=== PATIENT | female | born 1935 | race Caucasian/White ===

== ENCOUNTER → 2018-03-06 | Outpatient (CLI) | payer MEDICARE, OTHER, SELFPAY ==
[2018-03-06 10:15] LABS: Alanine Aminotransferase 24 IU/L (9-52); Albumin 4.2 g/dL (3.5-5.0); Albumin Globulin Ratio 1.4 (1.0-2.8); Alkaline Phosphatase 62 U/L (38-126); Aspartate Aminotransferase 36 IU/L (14-36); BUN Creatinine Ratio 21.3 (6-22); Bilirubin Total 0.5 mg/dL (0.2-1.3); Calcium 9.6 mg/dL (8.4-10.2); Estimated Glomerular Filt Rate > 60.0 mL/min (>60); Glucose 138 mg/dL (80-110); HEMOLYSIS < 15 (0-50); Potassium 3.8 mmol/L (3.4-5.1); Sodium 145 mmol/L (137-145); Total Protein 7.2 g/dL (6.3-8.2)
[2018-03-06 10:59] LABS: INR 1.1 (0.9-1.3); Prothrombin Time 12.1 SECONDS (10.1-12.7)
== END ==
LOC: LAB 08:41
PROVIDERS: Family Provider Family Medicine; PCP Family Medicine; Visit Provider Family Medicine
DX: J90 Pleural effusion, not elsewhere classified (principal)
CPT/HCPCS: 36415; 80053; 85610

== ENCOUNTER → 2018-03-07 13:34 | Outpatient (CLI) | payer MEDICARE, OTHER, SELFPAY ==
--- NOTE | 2018-03-07 | DI.RAD.S_ITS ---
PROCEDURE: XR CHEST 1V INDICATIONS: 82-year-old female status post ultrasound-guided left thoracentesis. TECHNIQUE: One view of the chest was acquired. COMPARISON: [facility], , CHEST 2 VIEW, 02/22/2018, 10:02. [facility], , CHEST 2 VIEW, 02/08/2018, 10:42. [facility], , CHEST 1 VIEW, 01/24/2018, 15:45. FINDINGS: Surgical changes and devices: None. Lungs and pleura: There is small residual basal left pleural effusion. No pneumothorax. No acute airspace opacities. Mediastinum: Mediastinal contours appear normal. There is moderate cardiomegaly. Bones and chest wall: No suspicious bony lesions. Overlying soft tissues appear unremarkable. IMPRESSION: Small residual basal left pleural effusion after thoracentesis. No pneumothorax. Dictated by: Trae Sapp M.D. on 03/07/2018 at 14:57 Approved by: Trae Sapp M.D. on 03/07/2018 at 14:59
--- NOTE | 2018-03-07 | PATH_ITS ---
Note [facility] Accession Number: [id number] TESTS RESULT FLAG UNITS REF RANGE LAB Clinician Provided Cytology Information No. of containers..01 Other (Miscellaneous) LT PLEURAL EFFUSION DIAGNOSIS: 01 LEFT PLEURAL EFFUSION, ASPIRATION. INCONCLUSIVE. SMALL, MATURE AND MONOTONOUS LYMPHOCYTES ARE PRESENT, SEE COMMENT. COMMENT: EXAMINATION OF THE THIN PREP AND CELL BLOCK REVEALS A MONOTONOUS LYMPHOCYTE POPULATION AND FEW REACTIVE MESOTHELIAL CELLS. ALTHOUGH THE SPECIMEN IS NEGATIVE FOR CARCINOMA AND HIGH-GRADE LYMPHOMA, THE POSSIBILITY OF A LOW-GRADE LYMPHOMA CANNOT BE RULED OUT. THEREFORE, IMMUNOSTAINS HAVE BEEN ORDERED FOR FURTHER EVALUATION AND THESE RESULTS WILL FOLLOW IN AN ADDENDUM REPORT. Pathologist ICD10: 01 J91.8 ADDENDUM COMMENT: To better evaluate the lymphocyte population seen on this pleural effusion, a limited panel of immunostains is performed with the following results: . CD3: T lymphocytes positive; CD20: B lymphocytes positive; CD43: T lymphocytes positive (negative for aberrant coexpression on the B lymphocytes). . These immunostains support a mixed T- and B-lymphocyte population, that favors a reactive process. However, if the effusion recurs, and there is clinical concern for a lymphoproliferative disorder, flow cytometry studies are also recommended. . * This test was developed and its performance characteristics determined by [employer] It has not been cleared or approved by the U.S. Food and Drug Administration. The FDA has determined that such clearance or approval is not necessary. This test is used for clinical purposes. It should not be regarded as investigational or for research. . ADDENDUM (FINAL) DIAGNOSIS: Pleural Effusion, Thoracentesis Addendum (03/12/2018): Negative for malignancy. Mixed B and T lymphocyte population, favor a reactive process. MRV/03/12/2018 Addendum Electronically Signed by Delfino Gardner MD, Pathologist 01 Delfino Gardner MD, Pathologist NPI- [id number] Deuce Slaughter, House Piping Inspector (ASCP) 01 30 CC, ORANGE, CLOUDY /LCS FLAG LEGEND: L-Low Normal,H-High Normal,LL-Alert Low,HH-Alert High <-Panic Low,>-Panic High,A-Abnormal,AA-Critical Abnormal Performed at: 01 =Z [facility] [address], [place] [address] Kostas Ramirez MD, A courtesy copy of this report has been sent to [phone]. A duplicate report has been generated due to demographic updates. Performed at: 01 [facility] [address], [place], [place] [id number] MD Kostas Ramirez MD Phone: [phone]
--- NOTE | 2018-03-07 | DI.US.S_ITS ---
PROCEDURE: US THORACENTESIS INDICATIONS: 82 year-old female with recurrent symptomatic left pleural effusion. TECHNIQUE: The indications, alternatives, benefits, risks, and complications of the procedure were explained to the patient. Written informed consent was obtained and placed in the chart. The chest was examined sonographically, and an appropriate site was chosen for thoracentesis. The skin was prepared and draped in the usual sterile fashion, and 1% lidocaine was infiltrated from the skin down through the pleural surface. A 19-gauge catheter-covered needle was then introduced into the pleural space, the catheter was advanced and the needle was withdrawn, and thereafter pleural fluid was aspirated. The catheter was then removed and a dressing was applied. COMPARISON: [facility], THORACENTESIS, 01/24/2018, 15:41. FINDINGS: Access site: Posterior left hemithorax. Needle: One-Step centesis catheter with introducer needle. Fluid volume and description: 1920 mL of serosanguineous fluid. Fluid sent for diagnostic testing: For cytology only. Medications: 1% lidocaine for local anaesthesia. Complications: None; post-procedural chest radiograph is pending to assess for pneumothorax. IMPRESSION: Successful ultrasound-guided left diagnostic and therapeutic thoracentesis. Dictated by: Trae Sapp M.D. on 03/07/2018 at 15:25 Approved by: Trae Sapp M.D. on 03/07/2018 at 15:26
== END ==
PROVIDERS: Family Provider Family Medicine; PCP Family Medicine; Visit Provider Family Medicine
DX: J90 Pleural effusion, not elsewhere classified (principal)
CPT/HCPCS: 32555; 71045

== ENCOUNTER 2018-04-11 10:29 | Observation (INO) | payer MEDICARE, OTHER, SELFPAY ==
[2018-03-15 14:07] VITALS: BMI 17.6
[2018-04-03 14:03] VITALS: BMI 20.2
[2018-04-11] VITALS (17 sets, daily range): BP systolic 125–171; BP diastolic 57–99; PULSE 86–99; RESP 14–21; TEMP 36.1–36.7; O2SAT 95–99; BMI 18.1
--- NOTE | 2018-04-11 | DI.RAD.S_ITS ---
PROCEDURE: XR CHEST 2V INDICATIONS: XRAY PRIOR TO SURGERY TECHNIQUE: 2 views of the chest were acquired. COMPARISON: [facility], , XR CHEST 1V, 03/10/2018, 13:09. FINDINGS: Surgical changes and devices: None. Lungs and pleura: No pleural effusions or pneumothorax. Small left pleural effusion with adjacent atelectasis, appears improved since 03/10/18. No new focal consolidation identified. Scattered scarring or atelectasis. Mediastinum: Mediastinal contours are normal. Heart size is normal. Bones and chest wall: No suspicious bony abnormalities. Soft tissues appear unremarkable. IMPRESSION: Small left pleural effusion with adjacent atelectasis, improved since 03/10/18. No new or focal consolidation Dictated by: Kaleb Patel M.D. on 04/11/2018 at 12:25 Approved by: Kaleb Patel M.D. on 04/11/2018 at 12:26
--- NOTE | 2018-04-11 | PATH_ITS ---
[facility] Accession Number: [id number] . 01 Material submitted: . PART A: SPLEEN BIOPSY PART B: SPLEEN ORGAN . 01 Clinical history: . A: REMOVED IN FRAGMENTS SLIDES WITH FROZEN . Frozen section diagnosis: . A. FROZEN SECTION DIAGNOSIS: ABNORMAL ARCHITECTURE; INFLAMMATORY-TYPE BACKGROUND. RULE OUT HODGKIN LYMPHOMA, RULE OUT INFLAMMATORY PSEUODO TUMOR. NO EPITHELIAL NEOPLASM IDENTIFIED. . Results given to Dr. Hester after patient identification by Dr. Toney Harris, on 04/14/2018. Frozen section was performed at [facility], [address] [place] [address]. . [facility] . 01 Diagnosis: A, B. Spleen; Biopsy and Splenectomy: Large B-cell lymphoma, germinal centre cell type, with a high Ki67 defined proliferation rate, consistent with diffuse large B-cell lymphoma, see microscopic description. [facility] [place] [facility] [place]18[place] . 01 Comment: This case has also been reviewed by Dr. Flavio Camp, hematopathologist, who agress with the interpretation. . 01 Electronically signed: . Delfino Gardner MD, Pathologist NPI- [id number] . 01 Gross description: . (A) Received in formalin, labeled spleen, is a triangular-shaped, pink-mooney piece of tissue (0.8 x 0.6 x 0.3 cm) originally received unfixed for frozen section performed at [facility]. One-half was sent for frozen section. Section code: (A1) remaining tissue from frozen section; (A2) remaining tissue. Note: Two stained slides are also received. (B) Received in formalin, labeled spleen, is a fragmented spleen (261 grams, 16.5 x 13.5 x 4.5 cm in aggregate). The capsule is warren- purple smooth and shiny. The parenchyma is red-brown and spongy. Multiple pieces of tissue contain warren-white solid firm irregular areas (2.5 x 2.5 x 1.5 cm in aggregate). Loading Unit Operator Crimping tissue submitted in cassettes B1-B10. . Note: Per the requisition, tissue was also received in RPMI and sent to flow cytometry for analysis. ([id number]) /[facility] . 01 Microscopic: . Microscopic examination reveals diffuse proliferation of neoplastic lymphocytes, intermediate and large-sized, with enlarged often pleomorphic, oval and irregular nucleus, occasionally prominent nucleolus, with basophilic cytoplasm, single cell necrosis and associated areas of geographic necrosis. Numerous mitoses and interspersed fibrosis present. There is residual normal, uninvolved splenic parenchyma also present. . To evaluate those neoplastic lymphocytes a panel of immunostains is performed with the following results: The neoplastic lymphocytes show strong uniform expression of the B-cell markers CD20 and PAX5, they are positive for CD10 and BCL6; they show focal/variable expression of BCL2, MUM1 expression (30-40%), P53 expression (30-40%), and with high proliferation rate as defined by Ki67, (80-90%). The neoplastic lymphocytes are negative for cyclin D1 (excluding blastoid variant of mantle cell lymphoma), CD3 and CD5 (these immunostains label background T-lymphocytes) and negative for EBV by LARA-1 in situ hybridization (with an appropriately positive U6 RNA control). . In summary, morphology and immunohistochemistry support the diagnosis of a large B-cell lymphoma with a high proliferation rate (ki-67: 80-90%), and positive for p53 which may indicate more aggressive clinical behavior. CD10 positive/BCL6 positive, subclassifies this large B-cell lymphoma as germinal centre cell type (Myke classification). . In addition, molecular studies have been ordered for MYC/BCL2/BCL6 gene rearrangements (to rule out double/triple hit lymphomas) and these results will follow in an addendum report. Also, c-myc immunostain and IgH and kappa gene rearrangement, by PCR, results will follow in the addendum report. . Concurrent flow cytometry ([id number]) detected an abnormal kappa restricted CD10+ B-cell population (see flow report for details). . Results were called and discussed with Dr. Hester, on 04/17/2018 at 2 pm. . * This test was developed and its performance characteristics determined by [facility]. It has not been cleared or approved by the U.S. Food and Drug Administration. The FDA has determined that such clearance or approval is not necessary. This test is used for clinical purposes. It should not be regarded as investigational or for research. . . . . . . . . . . . . . . . . . . . . . . . . . . . . . 01 Pathologist provided ICD-10: C83.37 . 01 CPT . 98844, J69679, Z80279, Z63988 Performed at: 01 [facility] [address], [place], [place] [id number] MD Kostas Ramirez MD Phone: [phone] Performed at: [address] [facility] [id number] MD Charbel Nicole MD Phone: [phone]
[2018-04-11] MEDS: LACTATED RINGERS 1,000 ML 42 ML IV ×2 (12:24→17:00)
--- NOTE | 2018-04-11 12:42 | PM.PREOP ---
Pre-operative Note Interval Note Pre-op Check: History & Physical Reviewed by Physician and Exam Performed H&P completed within 30 days and has changed as indicated here:: Chest x-ray so is a small effusion on the left. It should not interfere with general anesthesia or the operation. She had no questions preoperatively.
[2018-04-11] MEDS: CEFAZOLIN 2 GM/100 ML FROZ.PIGGY IV (13:24)
--- NOTE | 2018-04-11 14:26 | SUR.OPER ---
ON DEFLATED VALENTINE BAG GEL AXILLARY ROLL GEL PADDING UNDER RIGHT ARM AND RIGHT FLANK PILLOWS BETWEEN ARMS AND LEGS MULTIPLE TAPING CROSS HIPS AND LEGS HEAD ON PILLOW
[2018-04-11] MEDS: BUPIVACAINE 0.5% (PF) 30 ML VIAL INJ (15:30)
--- NOTE | 2018-04-11 18:09 | DI.RAD.S_ITS ---
PROCEDURE: XR CHEST 1V INDICATIONS: R/O PNEUMOTHORAX POST SURGERY TECHNIQUE: One view of the chest was acquired. COMPARISON: [facility], CR, XR CHEST 1V, 03/10/2018, 13:09. [facility], CR, XR CHEST 2V, 04/11/2018, 10:21. FINDINGS: Surgical changes and devices: There is a surgical drain projecting in the left upper quadrant. Lungs and pleura: No visualized pneumothorax. Small left pleural effusion with adjacent atelectasis. Mediastinum: Mediastinal contours appear normal. Heart size is normal. Bones and chest wall: There is extensive diffuse bilateral chest wall soft tissue gas extending to the base of neck. There is also intraperitoneal free air seen under the right hemidiaphragm IMPRESSION: Extensive bilateral chest wall soft tissue gas. No definite visualized pneumothorax. Intraperitoneal free air. This is presumed to be related to recent surgery although recommend clinical correlation. Small left pleural effusion with adjacent atelectasis. Dictated by: Kaleb Patel M.D. on 04/11/2018 at 18:25 Approved by: Kaleb Patel M.D. on 04/11/2018 at 18:30
--- NOTE | 2018-04-11 18:17 | P.OP_ITS ---
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 She was placed in left lateral decubitus position on a beanbag with all her pressure points padded. She was prepped and draped in the usual fashion. Local anesthetic was infiltrated and a transverse incision made at the level of umbilicus on the left side. It was carried through fascia in which stay sutures were placed. Noble cannula was inserted and 3 additional ports were placed 1 superior and 2 inferior to this port. They basically followed the angle of the costal margin. The spleen was identified and adhesions of the colonic omentum at the splenic flexure area were taken down using Harmonic scalpel. When I had freed everything at the inferior pole of the spleen I then divided the short gastrics freeing the upper stomach from the spleen. I then dissected out what appeared to be 2 main arteries and 1 large vein in anticipation should any problem developed with the a biopsy I had planned of the spleen. A biopsy was then performed at the upper pole on frozen section confirms some neoplastic process though it was inserted without process was. After conferring with the pathologist and with the medical oncologist I decided to remove her spleen. The 2 splenic arteries which had been dissected out were divided using stapling device. I then began dissecting along the hilum of the spleen from inferior to superior staying right on the capsule of the spleen to avoid any injury to the pain also divided some of the attachments lateral to the diaphragm. Ultimately we divided all the vessels along the hilum. Any that looks significantly divided with vascular staplers. There was no significant bleeding as this progressed. The only thing holding the spleen now were dense adhesions to the diaphragm. These had to be taken sharply with scissors. Once this was accomplished the spleen was placed in a large bag and brought up to the port site near the umbilicus. The was then morcellated with ring forceps and ultimately the entire spleen was removed. There was no spillage of material in the abdomen. The right upper quadrant was irrigated and suctioned free of fluid. Was some minor oozing from no particular vessel from the diaphragm as we had been forced to expose some of the muscle and dissecting the spleen off of it. Because of this I decided to place a drain in left upper quadrant and brought it out through 1 of the inferior lateral port sites. It was secured with a 3 0 nylon. The ports were all then removed. The stay sutures at the umbilicus were tied after I sutured the posterior fascia together. The wounds were irrigated and a 4 0 Polysorb was used to close the skin in the other 3 port sites. Dressings were applied the patient was taken off the dolan bag placed on her bed and awakened and extubated in the operating room . She was taken recovery room good condition. She was noted to have subcutaneous emphysema and a chest x-ray was performed postop in the upright position. There was no evidence of pneumothorax. This is most likely related to dissection along the diaphragm with air in the abdomen under pressure. This is not a complication but a natural occurrence with this sort of operation. Complications: none Condition: stable Disposition: PACU Plan for aftercare: To observation
[2018-04-11] MEDS: DEXTROSE 5%-0.45% NS 1,000 ML 125 ML IV (18:59)
[2018-04-11] MEDS: GABAPENTIN 300 MG CAPSULE PO (20:15)
[2018-04-11] MEDS: POLYVINYL ALCOHOL DROPS 1 DROPS EYE-BOTH (20:51)
[2018-04-11] MEDS: MORPHINE PCA 30 MG/30 ML PCA.VIAL IV (21:49)
[2018-04-12] VITALS (12 sets, daily range): BP systolic 95–134; BP diastolic 33–59; PULSE 68–86; RESP 14–20; TEMP 35.8–38; O2SAT 93–98; BMI 18.1
[2018-04-12] MEDS: DEXTROSE 5%-0.45% NS 1,000 ML 125 ML IV ×2 (02:48→10:30)
[2018-04-12] MEDS: MORPHINE PCA 30 MG/30 ML PCA.VIAL IV ×2 (05:21→14:53)
[2018-04-12 05:56] LABS: Add Manual Diff / Slide Review NO; Basophils Percent Auto 0.1 % (0-2); Hematocrit 32.7 % (36-46); Lymphocytes Percent Auto 7.8 % (25-40); Mean Corpuscular HGB Conc 33.8 % (30-36); Mean Corpuscular Hemoglobin 32.4 PG (26-34); Monocytes Percent Auto 11.9 % (3-14); Neutrophils Absolute Auto 7500 /uL (3000-5900); Neutrophils Percent Auto 80.2 % (50-75); Platelet Count 171 X10^3/uL (150-400); Red Cell Distribution Width 14.2 % (11.6-14.8); White Blood Cell Count 9.3 X10^3/uL (4.5-11.0)
--- NOTE | 2018-04-12 08:25 | PC.NURSE ---
2 person assist OOB to chair. pt shaky and weak. states, I love to exercise but haven't been able to for medical stuff. SHIRA with serosanguanous drainage. abd slightly distended, BT+
[2018-04-12] MEDS: MULTIVITAMIN 1 TABLET 1 TAB PO (09:01)
[2018-04-12] MEDS: GABAPENTIN 300 MG CAPSULE PO ×2 (09:01→21:37)
[2018-04-12] MEDS: LORATADINE 10 MG TABLET PO (09:01)
[2018-04-12] MEDS: LEVOTHYROXINE 125 MCG TABLET PO (09:01)
[2018-04-12] MEDS: CALCIUM CARB/VIT D3 500/200 TABLET 1 EACH PO (09:01)
[2018-04-12] MEDS: POLYVINYL ALCOHOL DROPS 1 DROPS EYE-BOTH (09:03)
--- NOTE | 2018-04-12 16:26 | PM.PNPO.1 ---
Subjective Date Patient Seen: 04/12/18 Time Patient Seen: 10:26 Interval history: The patient is postop day 1 from a laparoscopic splenectomy. She is feeling pretty weak. Had been out of bed earlier today but did walk in the late morning. She is feeling exhausted and tired and hesitant be discharged. Her pain is well controlled though she has been on parental narcotics. Exam Vital Signs (past 8 hours): Vital Signs - 8 hr 04/12/18 12:00 Pulse Oximetry 98 Pulse Oximetry 98 Oxygen Delivery Method Room Air Narrative Exam Narrative: Op Sites intact. Abdomen is soft. She had a lot of soft tissue air last night when I saw her postop that has completely resolved. The swelling around her face is gone from the soft tissue air. Objective Labs Result Diagrams: 04/12/18 05:20 Labs: Laboratory Results - last 24 hr 04/11/18 04/12/18 18:45 05:20 WBC 9.3 RBC 3.40 L Hgb 11.0 L Hct 32.7 L MCV 96.0 MCH 32.4 MCHC 33.8 RDW 14.2 Plt Count 171 Neut % (Auto) 80.2 H Lymph % (Auto) 7.8 L [place] % (Auto) 11.9 Eos % (Auto) 0.0 L Baso % (Auto) 0.1 Neut # (Auto) 7500 H Nasal Screen MRSA (PCR) Negative for mrsa Assessment & Plan Post-op (1) Splenic neoplasm: Problem details: Based on frozen section intraoperatively yesterday Current Visit: Yes Status: Acute Assessment and plan: The patient doing well post splenectomy. Her matter crit is down which is not that unusual. We will have to watch her platelet count as it will probably rise. I talked to her about post splenectomy antibiotics should she developed a respiratory tract infection. She has had both pneumococcus vaccines already. Will probably discharge in the morning. I will stop her IV fluid and switch her to p.o. pain medication. Repeat CBC just to see what her platelet count is doing. Postoperative Procedures Operation Date: 04/11/18 12:45 Actual Procedures Side Surgeon p Spleen Biopsy; Laparoscopic Splenectomy Mauricio Hester MD Postoperative status: doing well Time Spent With Patient less than 15 minutes Quality VTE Deep Vein Thrombosis/Pulmonary Embolism Present on Admission: No
[2018-04-12] MEDS: OXYCODONE IR 5 MG TABLET PO ×2 (17:28→21:38)
--- NOTE | 2018-04-12 18:22 | PC.NURSE ---
1820 - Patient transferred to room 205. Taken to new room in wheelchair with all belongings. Report given to receiving RN Summer. Patient left room in good condition.
[2018-04-12] MEDS: SODIUM CHLORIDE 0.9% FLUSH 10 ML IV (21:38)
[2018-04-12] MEDS: DOCUSATE 250 MG CAPSULE PO (21:38)
--- NOTE | 2018-04-12 22:26 | PC.NURSE ---
TRANSFER Received pt at approximately 1830 via wheelchair, accompanied by float RN. A&Ox3, pleasant and cooperative with care. 1P min/SBA for ambulation. L abdominal dressing and SHIRA intact. c/o minimal pain, rated 2/10 with activity. telemetry monitoring shows SR. pt orient to room and call light.
[2018-04-13] VITALS (7 sets, daily range): BP systolic 107–131; BP diastolic 47–58; PULSE 79; RESP 16; TEMP 36.8–36.9; O2SAT 92–97
--- NOTE | 2018-04-13 03:35 | PC.NURSE ---
Alert and oriented. Breath sounds CTA with RA sat of 92%. At start of shift had elevated temp of 100.4 but had multiple blankets on and now temp is 98.2. HRR; on telemetry and at 0000 was reported to be in SR. Denies nausea. BT hypoactive and patient denies flatus. Abdomen does appear distended but is soft. Dressings to left abdomen are CDI and SHIRA is compressed/intact with serosanguinous drainage noted in drain. Independent with bed mobility. Reports generalized weakness so uses walker and 1 assist when up to bathroom. SCD's placed at start of shift. Denies pain. Fall risk score is medium; bed alarm is on but patient does call for assistance appropriately.
[2018-04-13 08:34] LABS: Add Manual Diff / Slide Review NO; Basophils Percent Auto 0.2 % (0-2); Eosinophils Percent Auto 1.3 % (2-4); Hematocrit 36.7 % (36-46); Hemoglobin 12.1 g/dL (12.0-16.0); Lymphocytes Percent Auto 7.8 % (25-40); Mean Corpuscular Hemoglobin 31.9 PG (26-34); Mean Corpuscular Volume 96.8 fL (80-100); Monocytes Percent Auto 9.3 % (3-14); Neutrophils Absolute Auto 11100 /uL (3000-5900); Neutrophils Percent Auto 81.4 % (50-75); Platelet Count 218 X10^3/uL (150-400); Red Blood Cell Count 3.79 X10^6/uL (4.0-5.2); Red Cell Distribution Width 14.5 % (11.6-14.8); White Blood Cell Count 13.6 X10^3/uL (4.5-11.0)
[2018-04-13] MEDS: LORATADINE 10 MG TABLET PO (09:18)
[2018-04-13] MEDS: CALCIUM CARB/VIT D3 500/200 TABLET 1 EACH PO (09:18)
[2018-04-13] MEDS: DOCUSATE 250 MG CAPSULE PO (09:18)
[2018-04-13] MEDS: GABAPENTIN 300 MG CAPSULE PO (09:19)
[2018-04-13] MEDS: MULTIVITAMIN 1 TABLET 1 TAB PO (09:19)
[2018-04-13] MEDS: LEVOTHYROXINE 125 MCG TABLET PO (09:19)
[2018-04-13] MEDS: SODIUM CHLORIDE 0.9% FLUSH 10 ML IV (09:19)
[2018-04-13] MEDS: OXYCODONE IR 5 MG TABLET PO (09:25)
--- NOTE | 2018-04-13 12:13 | PC.NURSE ---
Addendum entered by Teresa Petersen R.N. 04/13/18 12:40: 1240-Dr Mims removed drain, Pt tolerated well. Reviewed discharge information with Pt. Dressing supplies sent with Pt. Original Note: Am shift Pt continues to improve, up ambulating with SBA FWW length of acute care halls x2. No dizziness, percolone effective for pain. SHIRA compressed and draining serosang drainage. Plan to d/c after Dr Mims pulls SHIRA. Report given to Beronica/Shauna MORILLO
--- NOTE | 2018-04-13 12:50 | PM.DS.1 ---
History of Present Illness Date Patient Seen: 04/13/18 Time Patient Seen: 12:51 Chief complaint: SPLENIC MASS/BIOPSY [id number] Narrative: 83-year-old female who presented initially with symptomatic pleural effusion on the left side requiring drainage. Cytology was negative. CT scan as part of the evaluation for potential pulmonary pathology demonstrated splenic mass. Findings were most consistent with neoplasm. She was therefore recommended to undergo laparoscopic biopsy of the mass versus splenectomy. 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 2. Hypothyroidism 3. COPD 4. Status post carotid endarterectomy 5. Seasonal allergies 6. Osteopenia 7. Hyperlipidemia 8. History of left pleural effusion 9. Postoperative anemia, not unanticipated following splenectomy Hospital Course: Patient was taken to the operating room on April 11, 2018 for the above procedure. She required splenectomy following initial frozen section analysis. She tolerated this well and was admitted to the intensive care unit initially for monitoring than the regular surgical floor on postoperative day 1. She remained afebrile and hemodynamically stable. No tachycardia or hypertension. She was still feeling somewhat weak and debilitated on postoperative day 1. Thereby requiring additional day in the hospital. By hospital day 2. She was tolerating a regular diet without issues. She reports copious flatus but no bowel movement as yet. Spontaneous return of bladder function. Pain is well controlled with oral analgesia. She is ambulating unassisted other than a walker. Her Blade-Raman drain had minimal serosanguineous output and was therefore removed by postoperative day 2. Her incisions are healing nicely without infection or breakdown. No erythema. Platelet count and hemoglobin were unremarkable at discharge. Her anemia was consistent with splenectomy procedure. Patient has been instructed on wound care. She has also been instructed to call the office sooner should she have nausea, vomiting, progressive pain, fever, chills, wound drainage, or inability to tolerate a diet. She has been given a prescription for prophylactic clarithromycin should she have upper respiratory infection symptoms. She has received Pneumovax in the past that may require further vaccinations once she has recovered from the acute event. She is discharged back to her home environment with the assistance for family members were quite attentive. She will follow up in 1 week in the surgery clinic. Status at Discharge Cognitive/behavioral status at discharge: Baseline Functional status at discharge: independent ambulation Overall status at discharge: patient is progressing back to baseline (Not unanticipated after splenectomy) Time Spent with Patient Less than 30 minutes Exam Vital Signs (past 8 hours): Vital Signs - 8 hr 04/13/18 07:00 04/13/18 08:11 04/13/18 11:00 Temperature 98.5 F Pulse Rate 79 Respiratory Rate 16 Blood Pressure 131/58 H Pulse Oximetry 97 97 97 04/13/18 11:29 04/13/18 12:00 Temperature Pulse Rate Respiratory Rate Blood Pressure Pulse Oximetry 96 97 Pulse Oximetry 97 Oxygen Delivery Method Room Air Oxygen Flow Rate 0 Narrative Exam Narrative: Well-nourished well-developed elderly female in no acute distress. She has been ambulating without issues throughout the day. She has eaten her breakfast tray and lunch tray during my visit this morning and again this afternoon. She is alert oriented x3. She is in good spirits. Sclera nonicteric Chest clear to auscultation Drain output is serosanguineous only in otherwise minimal Dressings are clean, dry, and intact. No abdominal wall erythema. She is mildly distended but soft and minimally tender. No guarding or rebound. Extremities show no clubbing, cyanosis, or edema Objective Labs Result Diagrams: 04/13/18 08:23 Labs: Laboratory Results - last 24 hr 04/13/18 08:23 WBC 13.6 H RBC 3.79 L Hgb 12.1 Hct 36.7 MCV 96.8 MCH 31.9 MCHC 33.0 RDW 14.5 Plt Count 218 Neut % (Auto) 81.4 H Lymph % (Auto) 7.8 L [place] % (Auto) 9.3 Eos % (Auto) 1.3 L Baso % (Auto) 0.2 Neut # (Auto) 54721 H Discharge Plan Discharge Plan Patient Disposition: Home, Self-Care Discharge comment: Your spleen was removed. This may make you susceptible to certain kinds of infections. If you developed a respiratory tract infection symptoms begin taking antibiotics and see your doctor promptly. Do not drive until pain free off medication. Do not lift over 10 lb for 6 weeks Discharge Med Rec/Prescriptions Prescriptions: New clarithromycin 500 mg tablet 500 mg PO BID Qty: 14 RF: 2 oxycodone 5 mg Tablet 5 mg PO Q4HR PRN (Reason: Pain, Moderate) Qty: 30 RF: 0 gabapentin [Neurontin] 300 mg Capsule 300 mg PO BID Qty: 30 RF: 1 acetaminophen 325 mg Tablet 650 mg PO Q6HR PRN (Reason: >100.0) Qty: 40 RF: 1 docusate sodium 250 mg Capsule 250 mg PO BID Qty: 20 RF: 1 sennosides [Senokot] 8.6 mg tablet 8.6 mg PO BEDTIME Qty: 10 RF: 1 Continue levothyroxine [Synthroid] 125 mcg Tablet 125 mcg PO DAILY RF: 0 loratadine [Allerclear] 10 mg Tablet 10 mg PO DAILY RF: 0 multivitamin Capsule 1 tab PO DAILY RF: 0 calcium carbonate-vitamin D3 [Calcium 500 + D (D3)] 500 mg(1,250mg) -125 unit Tablet 1 tab PO DAILY RF: 0 albuterol sulfate [ProAir HFA] 90 mcg/actuation HFA aerosol inhaler 90 mcg Inhalation BID PRN (Reason: Dyspnea) RF: 0 aspirin [Aspirin Low Dose] 81 mg Tablet,Delayed Release (Dr/Ec) 81 mg PO DAILY RF: 0 omega 2-loa-jgz-fish oil [Fish Oil] 1,000 mg (120 mg-180 mg) Capsule 1,200 mg PO QDAY RF: 0 Follow up/Referrals: Mauricio Hester MD [Physician] - 1 Week Discharge Orders: Discharge (Order); Ordered 04/13/18 Ordered By: Raj Mims Provider Discharge Instructions Diet: Diet as Tolerated Activity: Avoid lifting over 10 lb for 4 weeks. You may walk. No pool or tub for at least 2-3 weeks. You may shower. Wound Care Report to your healthcare provider any signs of infection, such as:: chills, fever, night sweats, increased pain and unusual drainage Dressing: You may remove her Band-Aids and shower. Leave strips of tape under Band-Aids alone. Keep a Band-Aid on the site where the drain was exiting until that wound has closed. Visit Report/Discharge Packet Instructions: DI for Splenectomy Stand Alone Forms: Surgery Discharge Discharge Data Primary Care Provider: Isra Delcid Attending Provider: Mauricio Hester VTE Deep Vein Thrombosis/Pulmonary Embolism Present on Admission: No
--- NOTE | 2018-04-13 13:01 | P.DS_ITS ---
History of Present Illness Date Patient Seen: 04/13/18 Time Patient Seen: 12:51 Chief complaint: SPLENIC MASS/BIOPSY [id number] Narrative: 83-year-old female who presented initially with symptomatic pleural effusion on the left side requiring drainage. Cytology was negative. CT scan as part of the evaluation for potential pulmonary pathology demonstrated splenic mass. Findings were most consistent with neoplasm. She was therefore recommended to undergo laparoscopic biopsy of the mass versus splenectomy. 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 2. Hypothyroidism 3. COPD 4. Status post carotid endarterectomy 5. Seasonal allergies 6. Osteopenia 7. Hyperlipidemia 8. History of left pleural effusion 9. Postoperative anemia, not unanticipated following splenectomy Hospital Course: Patient was taken to the operating room on April 11, 2018 for the above procedure. She required splenectomy following initial frozen section analysis. She tolerated this well and was admitted to the intensive care unit initially for monitoring than the regular surgical floor on postoperative day 1. She remained afebrile and hemodynamically stable. No tachycardia or hypertension. She was still feeling somewhat weak and debilitated on postoperative day 1. Thereby requiring additional day in the hospital. By hospital day 2. She was tolerating a regular diet without issues. She reports copious flatus but no bowel movement as yet. Spontaneous return of bladder function. Pain is well controlled with oral analgesia. She is ambulating unassisted other than a walker. Her Blade-Raman drain had minimal serosanguineous output and was therefore removed by postoperative day 2. Her incisions are healing nicely without infection or breakdown. No erythema. Platelet count and hemoglobin were unremarkable at discharge. Her anemia was consistent with splenectomy procedure. Patient has been instructed on wound care. She has also been instructed to call the office sooner should she have nausea, vomiting, progressive pain, fever, chills, wound drainage, or inability to tolerate a diet. She has been given a prescription for prophylactic clarithromycin should she have upper respiratory infection symptoms. She has received Pneumovax in the past that may require further vaccinations once she has recovered from the acute event. She is discharged back to her home environment with the assistance for family members were quite attentive. She will follow up in 1 week in the surgery clinic. Status at Discharge Cognitive/behavioral status at discharge: Baseline Functional status at discharge: independent ambulation Overall status at discharge: patient is progressing back to baseline (Not unanticipated after splenectomy) Time Spent with Patient Less than 30 minutes Exam Vital Signs (past 8 hours): Vital Signs - 8 hr 3 04/13/18 07:00 04/13/18 08:11 04/13/18 11:00 Temperature 98.5 F Pulse Rate 79 Respiratory Rate 16 Blood Pressure 131/58 H Pulse Oximetry 97 97 97 3 04/13/18 11:29 04/13/18 12:00 Temperature Pulse Rate Respiratory Rate Blood Pressure Pulse Oximetry 96 97 Pulse Oximetry 97 Oxygen Delivery Method Room Air Oxygen Flow Rate 0 Narrative Exam Narrative: Well-nourished well-developed elderly female in no acute distress. She has been ambulating without issues throughout the day. She has eaten her breakfast tray and lunch tray during my visit this morning and again this afternoon. She is alert oriented x3. She is in good spirits. Sclera nonicteric Chest clear to auscultation Drain output is serosanguineous only in otherwise minimal Dressings are clean, dry, and intact. No abdominal wall erythema. She is mildly distended but soft and minimally tender. No guarding or rebound. Extremities show no clubbing, cyanosis, or edema Objective Labs Result Diagrams: 04/13/18 08:23 Labs: Laboratory Results - last 24 hr 04/13/18 08:23 WBC 13.6 H RBC 3.79 L Hgb 12.1 Hct 36.7 MCV 96.8 MCH 31.9 MCHC 33.0 RDW 14.5 Plt Count 218 Neut % (Auto) 81.4 H Lymph % (Auto) 7.8 L [place] % (Auto) 9.3 Eos % (Auto) 1.3 L Baso % (Auto) 0.2 Neut # (Auto) 88585 H Discharge Plan Discharge Plan Patient Disposition: Home, Self-Care Discharge comment: Your spleen was removed. This may make you susceptible to certain kinds of infections. If you developed a respiratory tract infection symptoms begin taking antibiotics and see your doctor promptly. Do not drive until pain free off medication. Do not lift over 10 lb for 6 weeks Discharge Med Rec/Prescriptions Prescriptions: New clarithromycin 500 mg tablet 500 mg PO BID Qty: 14 RF: 2 oxycodone 5 mg Tablet 5 mg PO Q4HR PRN (Reason: Pain, Moderate) Qty: 30 RF: 0 gabapentin [Neurontin] 300 mg Capsule 300 mg PO BID Qty: 30 RF: 1 acetaminophen 325 mg Tablet 650 mg PO Q6HR PRN (Reason: >100.0) Qty: 40 RF: 1 docusate sodium 250 mg Capsule 250 mg PO BID Qty: 20 RF: 1 sennosides [Senokot] 8.6 mg tablet 8.6 mg PO BEDTIME Qty: 10 RF: 1 Continue levothyroxine [Synthroid] 125 mcg Tablet 125 mcg PO DAILY RF: 0 loratadine [Allerclear] 10 mg Tablet 10 mg PO DAILY RF: 0 multivitamin Capsule 1 tab PO DAILY RF: 0 calcium carbonate-vitamin D3 [Calcium 500 + D (D3)] 500 mg(1,250mg) -125 unit Tablet 1 tab PO DAILY RF: 0 albuterol sulfate [ProAir HFA] 90 mcg/actuation HFA aerosol inhaler 90 mcg Inhalation BID PRN (Reason: Dyspnea) RF: 0 aspirin [Aspirin Low Dose] 81 mg Tablet,Delayed Release (Dr/Ec) 81 mg PO DAILY RF: 0 omega 3-syv-fpf-fish oil [Fish Oil] 1,000 mg (120 mg-180 mg) Capsule 1,200 mg PO QDAY RF: 0 Follow up/Referrals: Mauricio Hester MD [Physician] - 1 Week Discharge Orders: Discharge (Order); Ordered 04/13/18 Ordered By: Raj Mims Provider Discharge Instructions Diet: Diet as Tolerated Activity: Avoid lifting over 10 lb for 4 weeks. You may walk. No pool or tub for at least 2-3 weeks. You may shower. Wound Care Report to your healthcare provider any signs of infection, such as:: chills, fever, night sweats, increased pain and unusual drainage Dressing: You may remove her Band-Aids and shower. Leave strips of tape under Band-Aids alone. Keep a Band-Aid on the site where the drain was exiting until that wound has closed. Visit Report/Discharge Packet Instructions: DI for Splenectomy Stand Alone Forms: Surgery Discharge Discharge Data Primary Care Provider: Isra Delcid Attending Provider: Mauricio Hester VTE Deep Vein Thrombosis/Pulmonary Embolism Present on Admission: No
--- NOTE | 2018-04-13 15:23 | CM.DANOTE ---
DC NOte: Pt going home w/family to assist today. No barriers identified to safe DC home. Pt walking the halls w/walker today. NOAH
== END 2018-04-13 14:10 | disposition home or self-care (01) ==
LOC: OR 10:31 → ICU 04-12 10:47 → AC 04-12 18:32 → ICU 04-14 12:24 → AC 04-14 12:25
PROVIDERS: Surgery; Admitting Provider Specialist; Family Provider Family Medicine; PCP Family Medicine; Visit Provider Specialist
PROC: 07TP4ZZ Resection of Spleen, Percutaneous Endoscopic Approach (ICD-10-PCS; CPT 38120; principal; 2018-04-11 12:45)
DX: C83.37 Diffuse large B-cell lymphoma, spleen (principal); E03.9 Hypothyroidism, unspecified; J44.9 Chronic obstructive pulmonary disease, unspecified; E78.5 Hyperlipidemia, unspecified; M85.80 Other specified disorders of bone density and structure, unspecified site; D64.9 Anemia, unspecified
CPT/HCPCS: 38120; 36415; 71045; 71046; 85025; 87797; G0378; G0379; J0690; J1100; J2250; J2405; J2704; J3010

== ENCOUNTER → 2018-05-08 13:29 | Outpatient (CLI) | payer MEDICARE, OTHER, SELFPAY ==
[2018-04-11 18:45] VITALS: BMI 18.1
--- NOTE | 2018-05-08 | DI.ECHO.S_ITS ---
[facility]---------+ [facility] +---------+ : : [address] : : : : [id number] : : : : Phone: [phone]+ Echocardiogram Report + + :Name: TITA MALHOTRA Study Date: 05/08/2018 Height: 66 in : :[facility] Weight: 123 lb : : Gender: Female BSA: 1.6 m2 : :: 1935 Age: 83 yrs BP: 168/78 mmHg: :Reason For Study: Chemotherapy : :Ordering Physician: Aashish : :Shana Performed By: Molly Fung : + + Interpretation Summary 1. Normal left ventricular size, wall thickness and systolic function with an estimated EF of 60-65% 2. Normal right ventricular size and systolic function. The estimated RVSP is 36 mm Hg. The estimated right atrial pressure is low. 3. No evidence for valvular pathology. There is no old study available for review. Procedure: A two-dimensional transthoracic echocardiogram with color flow and Doppler was performed. The study quality was technically good. There is no prior echocardiogram noted for this patient. The patient was in normal sinus rhythm during the exam. Left Ventricle: The left ventricle is normal in size. There is normal left ventricular wall thickness. The ejection fraction is estimated to be 60-65%. No obvious focal wall motion abnormalities appreciated. Assessment of diastolic parameters indicates a relaxation abnormality of the left ventricle, consistent with normal filling pressures. Right Ventricle: The right ventricle is normal size. The right ventricular systolic function is normal. Atria: The left atrial size is normal. Right atrial size is normal. No color doppler evidence for an ASD. Mitral Valve: The mitral valve leaflets appear borderline thickened, but open well. There is mild mitral regurgitation. Aortic Valve: The aortic valve is trileaflet. The aortic valve opens well. No aortic regurgitation is present. Tricuspid Valve: The tricuspid valve leaflets are thin and pliable. There is mild to moderate tricuspid regurgitation. The right ventricular systolic pressure is estimated at 36 mmHg assuming a right atrial pressure of 3 mm Hg. Pulmonic Valve: The pulmonic valve is not well seen, but is grossly normal. There is no pulmonic valvular regurgitation. Great Vessels: The aortic root is normal size. The dimensions of the ascending aorta are normal. The aortic arch is normal in size. The IVC is of normal diameter and collapses greater than 50% with a sniff. This suggests a low right atrial pressure of 3 mm Hg. Pericardium/ Pleura There is no pericardial effusion. There is no pleural effusion. MMode/2D Measurements & Calculations LVIDd: 4.3 cm Ao root diam: 3.2 cm LVIDs: 2.3 cm Aortic Jxn: 2.4 cm FS: 47.6 % asc Aorta Diam: 3.0 cm EPSS: 0.41 cm Ao Arch Diam (Prox Trans): 2.4 cm IVSd: 0.94 cm LVPWd: 0.76 cm LV malone. diameter/BSA (cm/m^2): 2.7 LV sys. diameter/BSA (cm/m^2): 1.4 LA dimension: 3.4 cm RA long axis: 4.2 cm LA A2 area: 16.7 cm2 RA area: 12.2 cm2 LA A4 area: 15.2 cm2 RA vol: 30.0 ml LA length (vol): 4.5 cm RA : 18.5 ml/m2 LA vol: 47.5 ml IVC diam: 1.8 cm LA vol index: 29.2 ml/m2 RVDd major: 4.8 cm RVD1 (basal): 3.0 cm RVD2 (mid): 2.9 cm Doppler Measurements & Calculations Ao V2 max: 133.4 cm/sec MV E max haroldo: 107.1 cm/sec Ao V2 mean: 86.1 cm/sec MV A max haroldo: 137.0 cm/sec Ao max P.1 mmHg MV E/A: 0.78 Ao mean P.6 mmHg Med Peak E' Haroldo: 6.2 cm/sec Ao V2 VTI: 30.5 cm E/E' med: 17.3 Lat Peak E' Haroldo: 8.1 cm/sec E/E' lat: 13.2 E/e' average: 15.3 MV dec time: 0.26 sec MV P1/2t: 75.5 msec TR max haroldo: 285.0 cm/sec MV P1/2t max haroldo: 107.4 cm/sec TR max P.5 mmHg MVA(P1/2t): 2.9 cm2 PA V2 max: 132.2 cm/sec PA V2 mean: 83.1 cm/sec PA mean P.3 mmHg PA Accel Time: 0.11 sec Reading Physician:KARUNA
== END ==
PROVIDERS: PCP Family Medicine; Visit Provider Internal Medicine Hematology & Oncology
DX: C83.30 Diffuse large B-cell lymphoma, unspecified site (principal)
CPT/HCPCS: 93306

== ENCOUNTER 2018-05-09 06:54 | Day surgery (SDC) | payer MEDICARE, OTHER, SELFPAY ==
[2018-04-11 18:45] VITALS: BMI 18.1
[2018-05-09] VITALS (9 sets, daily range): BP systolic 127–158; BP diastolic 7–82; PULSE 64–88; RESP 9–20; TEMP 35.9–36.6; O2SAT 96–100; BMI 18.6
--- NOTE | 2018-05-09 | DI.RAD.S_ITS ---
PROCEDURE: XR CHEST 1V INDICATIONS: PORT A CATH TECHNIQUE: One view of the chest was acquired. COMPARISON: [facility], CR, XR CHEST 1V, 04/11/2018, 17:49. FINDINGS: Surgical changes and devices: Left-sided port with tip overlying the mid SVC. Lungs and pleura: Small left pleural effusion, nearly resolved, and no pneumothorax. Lungs are clear except for minimal residual atelectasis at the left base medially. Mild chronic volume loss right upper lobe. Mediastinum: Mediastinal contours appear normal. Heart size is normal. Bones and chest wall: Diffuse subcutaneous emphysema has resolved. No suspicious bony lesions. Probable impaction fracture left humeral neck. Overlying soft tissues appear unremarkable. Prior pneumoperitoneum has resolved. IMPRESSION: Minimal residual left lower lobe atelectasis and small effusion, otherwise normal chest. Dictated by: David Murray M.D. on 05/09/2018 at 11:55 Approved by: David Murray M.D. on 05/09/2018 at 11:59
[2018-05-09] MEDS: LACTATED RINGERS 1,000 ML 42 ML IV (07:27)
--- NOTE | 2018-05-09 09:19 | PM.PREOP ---
Pre-operative Note Interval Note Pre-op Check: History & Physical Reviewed by Physician and Exam Performed
[2018-05-09] MEDS: CEFAZOLIN 1 GM VIAL IV (09:55)
--- NOTE | 2018-05-09 10:07 | SUR.OPER ---
Supine on padded OR bed, head on pillow, arm padded and tucked at left side, right arm on padded arm board at 90 degrees, at legs uncrossed, safety belt at thigh, tape over blanket over lower legs .
[2018-05-09] MEDS: LIDOCAINE 1% 20 ML INJ INJ (10:30)
--- NOTE | 2018-05-09 11:20 | PM.OP.1 ---
Operative Date/Time/Diagnoses Date of procedure: 05/09/18 Time of procedure: 10:30 Pre-op diagnosis: Large b cell lymphoma Post-op diagnosis: same Procedure & Clinicians Procedure: Placement of Port-A-Cath left subclavian vein Same procedure as scheduled: Yes Indications: Request for Port-A-Cath for chemotherapy Surgeon: Mauricio Hester Click Yes if Unassisted: Yes Anesthesia Type: General Operative Notes Findings: Tip of catheter in the SVC no evidence of a pneumothorax Closure Type: primary Implants & Drains: Slim Port-A-Cath Estimated Blood Loss (mL): 5 Blood products transfused: none Procedure in detail: Patient was placed on the operating room table and underwent general LMA anesthesia. Roll was placed between her shoulders and she was prepped and draped in the usual fashion. Local anesthetic was infiltrated in a field block fashion beneath her left clavicle. Transverse incision was made and a pocket created. The 2 was inserted on 1st attempt into the subclavian vein. Guidewire was passed in the toe removed. The catheter and port were put together and tapered to appropriate length. The port was placed in the pocket. The dilator and introducer were passed over the wire and the wire and dilator removed leaving the introducer in place. The catheter was placed through the introducer and the introducer peeled away leaving the catheter with its tip in the superior vena cava. The port was aspirated and flushed with heparinized saline. The catheter was secured to the chest wall with interrupted silk suture. Subcu was closed with interrupted 3 0 Polysorb. The skin was closed running for Polysorb subcuticular stitch and Steri-Strips. Dressing was applied the patient was taken to the recovery room extubated in good condition. Complications: none Condition: stable Disposition: PACU
== END 2018-05-09 12:12 | disposition home or self-care (01) ==
PROVIDERS: PCP Family Medicine; Visit Provider Specialist
PROC: (CPT 36561; principal; 2018-05-09 09:45)
DX: C85.10 Unspecified B-cell lymphoma, unspecified site (principal); Z45.2 Encounter for adjustment and management of vascular access device
CPT/HCPCS: 36561; 71045; 76000; C1788; J0690; J2405; J2704; J3010

== ENCOUNTER → 2018-05-16 17:50 | Outpatient (CLI) | payer MEDICARE, OTHER, SELFPAY ==
[2018-05-09 11:13] VITALS: BMI 18.1
== END ==
PROVIDERS: Family Provider Family Medicine; PCP Family Medicine; Visit Provider Internal Medicine Hematology & Oncology
DX: C85.10 Unspecified B-cell lymphoma, unspecified site (principal)

== ENCOUNTER → 2018-05-21 10:19 | Outpatient (CLI) | payer MEDICARE, OTHER, SELFPAY ==
[2018-05-09 11:13] VITALS: BMI 18.1
--- NOTE | 2018-05-21 10:23 | DI.RAD.S_ITS ---
PROCEDURE: XR CHEST 2V INDICATIONS: s/p pneumothroax TECHNIQUE: 2 views of the chest were acquired. COMPARISON: [facility], CR, XR CHEST 1V, 04/11/2018, 17:49. [facility], CR, XR CHEST 1V, 05/09/2018, 10:46. FINDINGS: Surgical changes and devices: Left Port-A-Cath is unchanged. Lungs and pleura: No pneumothorax. There is mild blunting at the left costophrenic sulcus, decreased when compared with the study dated 05/09/18. Lungs are clear. The lung volumes are large and the diaphragms are flattened suggesting emphysema. Mediastinum: Mediastinal contours are normal. Heart size is normal. Bones and chest wall: No suspicious bony abnormalities. Soft tissues appear unremarkable. IMPRESSION: Probable decrease in the small left effusion when compared with the prior study. No pneumothorax. Dictated by: Anne Gomez M.D. on 05/21/2018 at 12:17 Approved by: Anne Gomez M.D. on 05/21/2018 at 12:18
== END ==
PROVIDERS: PCP Family Medicine; Visit Provider Internal Medicine Hematology & Oncology
DX: J93.9 Pneumothorax, unspecified (principal)
CPT/HCPCS: 71046

== ENCOUNTER 2018-07-29 12:38 | Emergency (ER) | payer MEDICARE, OTHER, SELFPAY ==
[2018-05-09 11:13] VITALS: BMI 18.1
[2018-07-29 12:47] VITALS: BP 184/64; PULSE 103; RESP 18; TEMP 37.4; O2SAT 96; BMI 19.3
--- NOTE | 2018-07-29 13:07 | DI.RAD.S_ITS ---
PROCEDURE: XR CHEST 1V INDICATIONS: cough TECHNIQUE: One view of the chest was acquired. COMPARISON: [facility], CR, XR CHEST 1V, 04/11/2018, 17:49. [facility], CR, XR CHEST 1V, 05/09/2018, 10:46. [facility], CR, XR CHEST 2V, 05/21/2018, 10:03. FINDINGS: Surgical changes and devices: There is a stable left-sided chest port is seen. Lungs and pleura: No pleural effusions or pneumothorax. Lungs are clear, and hyperexpanded. Mediastinum: Mediastinal contours appear normal. Heart size is normal. Bones and chest wall: No suspicious bony lesions. Age-appropriate bony degenerative changes are seen. Mild dextroconvex scoliotic curvature is seen. Overlying soft tissues appear unremarkable. IMPRESSION: No focal infiltrates are seen. Dictated by: Kp Sandoval M.D. on 07/29/2018 at 12:37 Approved by: Kp Sandoval M.D. on 07/29/2018 at 12:38
--- NOTE | 2018-07-29 13:13 | ED_ITS ---
HPI - Fever General Chief Complaint: Fever Stated Complaint: states has a fever, cancer patient Time Seen by Provider: 07/29/18 12:52 Source: patient Mode of arrival: ambulatory Limitations: no limitations History of Present Illness HPI Narrative: Patient is a jacinta 83-year-old female with history of B-cell lymphoma only getting treatment her last treatment was 07/18/2018. She presents today with temperature 100.6?. 3 days ago she started having nasal congestion cough and sore throat she has been taking her temperature did daily as started out at 99 and has been gradually rising. She feels that congestion has settled into her chest and her cough is getting worse. Today she had a temperature of 100.6? she called the [facility] who told her to come to the ED for evaluation. MD complaint: fever Related Data Home Medications Medication Instructions Recorded Confirmed aspirin [Aspirin Low Dose] 81 mg PO DAILY 03/08/18 07/29/18 omega 3-btt-vdi-fish oil [Fish Oil] 1,200 mg PO QDAY 03/08/18 07/29/18 loratadine [Allerclear] 10 mg PO DAILY 04/03/18 07/29/18 Calcium 750, D3 500, Vitamin K 1 tab PO QPM 07/29/18 07/29/18 levothyroxine 1 tab PO DAILY 07/29/18 07/29/18 igxeesbtjkze-fuupphii-sivgcd 1 tab PO QPM 07/29/18 07/29/18 [Multivitamin 50 Plus] Previous Rx's Medication Instructions Recorded levofloxacin [Levaquin] 750 mg PO DAILY #7 tab 07/29/18 Allergies Allergy/AdvReac Type Severity Reaction Status Date / Time Penicillins Allergy Unknown Rash Verified 07/29/18 12:47 Sulfa (Sulfonamide Allergy Unknown Rash Verified 07/29/18 12:47 Antibiotics) adhesive tape AdvReac Unknown Rash Verified 07/29/18 12:47 Review of Systems Review of Systems All systems reviewed & are unremarkable except as noted in HPI and below Constitutional Reports fatigue and Reports fever(s) Eyes Denies change in vision, Denies eye discharge, Denies irritation and Denies loss of vision ENT Ears, Nose, Mouth, and Throat: Reports as per HPI Cardiovascular Denies chest pain, Denies irregular heart rhythm, Denies lightheadedness, Denies palpitations and Denies orthopnea Respiratory Reports cough Gastrointestinal Gastrointestinal: Denies abdominal pain, Denies change in bowel habits, Denies diarrhea, Denies nausea and Denies vomiting Genitourinary Denies hematuria, Denies flank pain, Denies urinary incontinence and Denies urinary urgency Musculoskeletal Denies back pain, Denies muscle weakness, Denies numbness and Denies tingling Integumentary/Breasts Denies pruritus, Denies erythema, Denies rash and Denies wounds Neurologic Denies loss of vision, Denies numbness and Denies tingling Endocrine Reports fatigue and Denies palpitations [facility] Social History household members: none Smoking Status: Never smoker alcohol intake: never Exam Initial Vital Signs Initial Vital Signs: Vital Signs Temperature 99.4 F 07/29/18 12:47 Pulse Rate 103 H 07/29/18 12:47 Respiratory Rate 18 07/29/18 12:47 Blood Pressure 184/64 H 07/29/18 12:47 Pulse Oximetry 96 07/29/18 12:47 GENERAL: Well-appearing, well-nourished and in no acute distress. HEENT: Head atraumatic,EOMI, pupils reactive, face symmetric, neck is supple no meningeal sign PHARYNX: No erythema, no tonsillar exudate, no cervical lymphadenopathy CARDIOVASCULAR: Regular rate and rhythm without murmurs, rubs or gallops. RESPIRATORY: Breath sounds equal bilaterally, no wheezes rales or rhonchi. ABDOMEN: Soft, nontender. Normoactive bowel sounds all 4 quadrants. No guarding or rebound. EXTREMITIES: Normal range of motion, no clubbing or edema. Neurovascularly intact NEUROLOGICAL: Alert and oriented x4.Normal gait and speech. Cranial nerves II through XII grossly intact. SKIN: Warm, dry, no laceration, no petechiae, no rashes or lesions. Course Orders Ordered: ED Orders 07/29/18 13:07 XR chest 1V Stat 07/29/18 13:30 Urinalysis and Microscopic Stat 07/29/18 13:45 Complete Blood Count AUTO DIFF Stat Lactate (Lactic Acid) Stat Procalcitonin Stat 07/29/18 14:15 Blood Culture Stat Discontinued Medications Heparin Sodium (Porcine) (Heparin Lock Port) 500 unit IV PRN PRN PRN Reason: Flush Last Admin: 07/29/18 16:44 Dose: 500 unit Sodium Chloride (Normal Saline 0.9%) 1,000 mls @ 1,000 mls/hr IV BOLUS ONE Stop: 07/29/18 14:07 Last Infusion: 07/29/18 14:37 Dose: 0 mls/hr Admin: 07/29/18 13:45 Dose: 1,000 mls/hr Levofloxacin (Levaquin) 750 mg in 150 mls @ 100 mls/hr IV NOW ONE Stop: 07/29/18 16:08 Last Infusion: 07/29/18 16:43 Dose: 0 mls/hr Admin: 07/29/18 14:53 Dose: 100 mls/hr Vital Signs - 8 hr 07/29/18 12:47 07/29/18 14:04 07/29/18 14:57 Temperature 99.4 F Pulse Rate 103 H 90 85 Respiratory Rate 18 21 Blood Pressure 184/64 H Blood Pressure [Right Arm] 142/51 H 149/66 H Pulse Oximetry 96 98 100 07/29/18 15:48 07/29/18 16:15 07/29/18 16:28 Temperature 99.4 F Pulse Rate 87 91 H Respiratory Rate 11 L 17 Blood Pressure Blood Pressure [Right Arm] 137/57 L 133/75 Pulse Oximetry 98 100 MDM - Fever Lab Data Attestation: I reviewed the patient's lab results. Result diagrams: 07/29/18 13:45 07/29/18 Unknown Lab Results 07/29/18 07/29/18 07/29/18 Range/Units 13:30 13:45 13:45 WBC 17.9 H (4.5-11.0) X10^3/uL RBC 3.22 L (4.0-5.2) X10^6/uL Hgb 10.9 L (12.0-16.0) g/dL Hct 32.6 L (36-46) % MCV 101.0 H (80-100) fL MCH 33.9 (26-34) PG MCHC 33.6 (30-36) % RDW 16.0 H (11.6-14.8) % Plt Count 272 (150-400) X10^3/uL Neut % (Auto) 78.2 H (50-75) % Lymph % (Auto) 4.5 L (25-40) % Early % (Auto) 15.5 H (3-14) % Eos % (Auto) 0.7 L (2-4) % Baso % (Auto) 1.1 (0-2) % Neut # (Auto) 50874 H (9497-4988) /uL Sodium (137-145) mmol/L Potassium (3.4-5.1) mmol/L Chloride (98-107) mmol/L Carbon Dioxide (22-32) mmol/L BUN (7-17) mg/dL Creatinine (0.52-1.04) mg/dL Estimated GFR (>60) mL/min BUN/Creatinine Ratio (6-22) Glucose (80-110) mg/dL Lactate (0.7-2.1) mmol/L Calcium (8.4-10.2) mg/dL Total Bilirubin (0.2-1.3) mg/dL AST (14-36) IU/L ALT (9-52) IU/L Alkaline Phosphatase (38-126) U/L Total Protein (6.3-8.2) g/dL Albumin (3.5-5.0) g/dL Globulin (1.7-4.1) g/dL Albumin/Globulin Ratio (1.0-2.8) Procalcitonin 0.13 (<0.5) ng/mL Urine Color Yellow Urine Appearance Clear Urine pH 6.0 (4.5-8.0) Ur Specific [place] <=1.005 (1.000-1.035) Urine Protein Negative (Negative) Urine Glucose (UA) Negative (Normal) g/dL Urine Ketones Negative (NEGATIVE) Urine Occult Blood Trace-lysed (Negative) Urine Nitrate Negative (Negative) Urine Bilirubin Negative (NEGATIVE) Urine Urobilinogen 0.2 (0.2) E.U./dL Ur Leukocyte Esterase Negative (NEGATIVE) Urine RBC 0-1/hpf (0-5/HPF) Urine WBC None seen (0-5/HPF) Ur Transition Epith Cell 0-1/hpf (0-5/HPF) Urine Bacteria None seen (None) Ur Culture Indicated? Cult not indicated Micro UA Comment Not Reportable 07/29/18 07/29/18 Range/Units 13:45 Unknown WBC (4.5-11.0) X10^3/uL RBC (4.0-5.2) X10^6/uL Hgb (12.0-16.0) g/dL Hct (36-46) % MCV (80-100) fL MCH (26-34) PG MCHC (30-36) % RDW (11.6-14.8) % Plt Count (150-400) X10^3/uL Neut % (Auto) (50-75) % Lymph % (Auto) (25-40) % Early % (Auto) (3-14) % Eos % (Auto) (2-4) % Baso % (Auto) (0-2) % Neut # (Auto) (0041-4589) /uL Sodium 141 (137-145) mmol/L Potassium 4.1 (3.4-5.1) mmol/L Chloride 102 (98-107) mmol/L Carbon Dioxide 31 (22-32) mmol/L BUN 16 (7-17) mg/dL Creatinine 0.70 (0.52-1.04) mg/dL Estimated GFR > 60.0 (>60) mL/min BUN/Creatinine Ratio 22.9 H (6-22) Glucose 125 H (80-110) mg/dL Lactate 1.6 (0.7-2.1) mmol/L Calcium 9.3 (8.4-10.2) mg/dL Total Bilirubin 0.2 (0.2-1.3) mg/dL AST 31 (14-36) IU/L ALT 34 (9-52) IU/L Alkaline Phosphatase 128 H (38-126) U/L Total Protein 6.5 (6.3-8.2) g/dL Albumin 3.9 (3.5-5.0) g/dL Globulin 2.6 (1.7-4.1) g/dL Albumin/Globulin Ratio 1.5 (1.0-2.8) Procalcitonin (<0.5) ng/mL Urine Color Urine Appearance Urine pH (4.5-8.0) Ur Specific [place] (1.000-1.035) Urine Protein (Negative) Urine Glucose (UA) (Normal) g/dL Urine Ketones (NEGATIVE) Urine Occult Blood (Negative) Urine Nitrate (Negative) Urine Bilirubin (NEGATIVE) Urine Urobilinogen (0.2) E.U./dL Ur Leukocyte Esterase (NEGATIVE) Urine RBC (0-5/HPF) Urine WBC (0-5/HPF) Ur Transition Epith Cell (0-5/HPF) Urine Bacteria (None) Ur Culture Indicated? Micro UA Comment Imaging Data Chest x-ray: Radiologist's impression: PROCEDURE: XR CHEST 1V INDICATIONS: cough TECHNIQUE: One view of the chest was acquired. COMPARISON: [facility], CR, XR CHEST 1V, 04/11/2018, 17:49. [facility], CR, XR CHEST 1V, 05/09/2018, 10:46. [facility], CR, XR CHEST 2V, 05/21/2018, 10:03. FINDINGS: Surgical changes and devices: There is a stable left-sided chest port is seen. Lungs and pleura: No pleural effusions or pneumothorax. Lungs are clear, and hyperexpanded. Mediastinum: Mediastinal contours appear normal. Heart size is normal. Bones and chest wall: No suspicious bony lesions. Age-appropriate bony degenerative changes are seen. Mild dextroconvex scoliotic curvature is seen. Overlying soft tissues appear unremarkable. IMPRESSION: No focal infiltrates are seen. Dictated by: Kp Sandoval M.D. on 07/29/2018 at 12:37 MDM Narrative Medical decision making narrative: Patient does have leukocytosis, normal lactic acid normal vitals. She overall does not look toxic or septic. She is certainly not neutropenic. She then told me she gets shot of Neulasta after every chemo her last chemo has not been for 2 weeks. I have discussed case with oncologist Dr. Benítez, she does have leukocytosis. He does not think it is from the Neulasta or her most recent chemo. He agrees with antibiotics. She overall does not look toxic or septic. He will see her in the office this week. Agrees with discharging home on antibiotics Discharge Plan Departure Patient Disposition: Home Clinical Impression: Fever of unknown origin, Large B-cell lymphoma Discharge Date/Time: 07/29/18 16:45 Interventions: ED Discharge Assessment Last Done: 07/29/18 16:45 Instructions: DI for Fever (Symptom) -- Adult Activity Restrictions/Additional Instructions: *You have been diagnosed with fever *What to do: No pneumonia or bladder infection, unknown what year fever is caused by. It is recommended that you take antibiotics. *Continue to take medications as directed Levaquin once a day for 7 days-fax to [facility] in [place] *Follow up with your primary care provider in 2-3 days, follow up with Oncology Dr. Benítez this week on or Sunday call to schedule an appointment. He is aware as of year visit today in the ER. *Return to ER if you should have persistent fever, increasing chest pain, cough , shortness of breath is weakness, confusion or any new, worsening or concerning symptoms Prescriptions: New levofloxacin [Levaquin] 750 mg tablet 750 mg PO DAILY Qty: 7 RF: 0 No Action loratadine [Allerclear] 10 mg Tablet 10 mg PO DAILY RF: 0 aspirin [Aspirin Low Dose] 81 mg Tablet,Delayed Release (Dr/Ec) 81 mg PO DAILY RF: 0 omega 3-wow-bpn-fish oil [Fish Oil] 1,000 mg (120 mg-180 mg) Capsule 1,200 mg PO QDAY RF: 0 levothyroxine 112 mcg tablet 1 tab PO DAILY RF: 0 zxyrqqqinxrn-imukdetz-fcqyex [Multivitamin 50 Plus] Tablet 1 tab PO QPM RF: 0 Calcium 750, D3 500, Vitamin K 1 tab PO QPM RF: 0
[2018-07-29] MEDS: SODIUM CHLORIDE 0.9% 1,000 ML 1000 ML IV (13:45)
[2018-07-29 14:02] LABS: Add Manual Diff / Slide Review NO; Basophils Percent Auto 1.1 % (0-2); Eosinophils Percent Auto 0.7 % (2-4); Hematocrit 32.6 % (36-46); Hemoglobin 10.9 g/dL (12.0-16.0); Lymphocytes Percent Auto 4.5 % (25-40); Mean Corpuscular HGB Conc 33.6 % (30-36); Mean Corpuscular Hemoglobin 33.9 PG (26-34); Monocytes Percent Auto 15.5 % (3-14); Neutrophils Absolute Auto 14000 /uL (3000-5900); Neutrophils Percent Auto 78.2 % (50-75); Platelet Count 272 X10^3/uL (150-400); Red Blood Cell Count 3.22 X10^6/uL (4.0-5.2); White Blood Cell Count 17.9 X10^3/uL (4.5-11.0)
[2018-07-29 14:04] VITALS: BP 142/51; PULSE 90; O2SAT 98
[2018-07-29 14:20] LABS: Bacteria Urine None Seen; WBC Urine None Seen (0-5/HPF)
[2018-07-29 14:33] LABS: Appearance Urine UA CLEAR; Bilirubin Urine UA NEGATIVE (NEGATIVE); Color Urine UA YELLOW; Glucose Urine UA NEGATIVE (Normal); Ketones Urine UA NEGATIVE (NEGATIVE); Leukocyte Esterase Urine UA NEGATIVE (NEGATIVE); Nitrite Urine UA Negative (Negative); Occult Blood Urine UA TRACE-LYSED (Negative); Protein Urine UA NEGATIVE (Negative); Specific Gravity Urine UA <=1.005 (1.000-1.035); Urobilinogen Urine UA 0.2 E.U./dL (0.2)
[2018-07-29 14:33] LABS: Lactate (Lactic Acid) 1.6 mmol/L (0.7-2.1)
[2018-07-29 14:47] LABS: Alanine Aminotransferase 34 IU/L (9-52); Albumin 3.9 g/dL (3.5-5.0); Albumin Globulin Ratio 1.5 (1.0-2.8); Alkaline Phosphatase 128 U/L (38-126); Aspartate Aminotransferase 31 IU/L (14-36); BUN Creatinine Ratio 22.9 (6-22); Bilirubin Total 0.2 mg/dL (0.2-1.3); Blood Urea Nitrogen 16 mg/dL (7-17); Calcium 9.3 mg/dL (8.4-10.2); Carbon Dioxide 31 mmol/L (22-32); Chloride 102 mmol/L (98-107); Estimated Glomerular Filt Rate > 60.0 mL/min (>60); Globulin 2.6 g/dL (1.7-4.1); Glucose 125 mg/dL (80-110); HEMOLYSIS < 15 (0-50); Potassium 4.1 mmol/L (3.4-5.1); Sodium 141 mmol/L (137-145); Total Protein 6.5 g/dL (6.3-8.2)
[2018-07-29] MEDS: levoFLOXacin 750 MG/150 ML PIGGYBACK 100 MG IV (14:53)
[2018-07-29 14:57] VITALS: BP 149/66; PULSE 85; RESP 21; O2SAT 100
[2018-07-29 15:07] LABS: Culture Indicated Urine Cult Not Indicated; RBC Urine 0-1/HPF (0-5/HPF); Transitional Epi Cells Urine 0-1/HPF (0-5/HPF)
[2018-07-29 15:18] LABS: Procalcitonin 0.13 ng/mL (<0.5)
[2018-07-29 15:48] VITALS: BP 137/57; PULSE 87; RESP 11; O2SAT 98
[2018-07-29 16:15] VITALS: TEMP 37.4
[2018-07-29 16:28] VITALS: BP 133/75; PULSE 91; RESP 17; O2SAT 100
== END 2018-07-29 16:45 | disposition home or self-care (01) ==
PROVIDERS: Emergency Provider Emergency Medicine; Family Provider Family Medicine; PCP Family Medicine
DX: C85.10 Unspecified B-cell lymphoma, unspecified site (principal); R50.9 Fever, unspecified
CPT/HCPCS: 36415; 36591; 71045; 80053; 81001; 83605; 84145; 85025; 87040; 96361; 96365; 96366; 96375; 99284; J1642; J1956

== ENCOUNTER → 2018-12-30 08:20 | Outpatient (CLI) | payer MEDICARE, OTHER, SELFPAY ==
[2018-05-09 11:13] VITALS: BMI 18.1
[2018-12-30 09:22] LABS: Add Manual Diff / Slide Review NO; Basophils Absolute Auto 100 /uL (0-100); Basophils Percent Auto 1.5 % (0-2); Eosinophils Absolute Auto 400 /uL (0-450); Eosinophils Percent Auto 9.1 % (2-4); Hematocrit 39.8 % (36-46); Hemoglobin 13.3 g/dL (12.0-16.0); Lymphocytes Absolute Auto 1200 /uL (1100-4500); Lymphocytes Percent Auto 28.2 % (25-40); Mean Corpuscular HGB Conc 33.4 % (30-36); Mean Corpuscular Hemoglobin 33.3 PG (26-34); Mean Corpuscular Volume 99.6 fL (80-100); Monocytes Absolute Auto 700 /uL (0-900); Monocytes Percent Auto 15.4 % (3-14); Neutrophils Absolute Auto 2000 /uL (1500-7000); Neutrophils Percent Auto 45.8 % (50-75); Platelet Count 291 X10^3/uL (150-400); Red Cell Distribution Width 14.6 % (11.6-14.8); White Blood Cell Count 4.4 X10^3/uL (4.5-11.0)
[2018-12-30 09:51] LABS: Alanine Aminotransferase 33 IU/L (9-52); Albumin 4.3 g/dL (3.5-5.0); Albumin Globulin Ratio 1.5 (1.0-2.8); Alkaline Phosphatase 66 U/L (38-126); Aspartate Aminotransferase 28 IU/L (14-36); BUN Creatinine Ratio 33.3 (6-22); Bilirubin Total 0.4 mg/dL (0.2-1.3); Blood Urea Nitrogen 20 mg/dL (7-17); Calcium 9.6 mg/dL (8.4-10.2); Carbon Dioxide 29 mmol/L (22-32); Chloride 101 mmol/L (98-107); Cholesterol 222 mg/dL (140-199); Estimated Glomerular Filt Rate > 60.0 mL/min (>60); Globulin 2.9 g/dL (1.7-4.1); Glucose 97 mg/dL (80-110); HDL Cholesterol 73 mg/dL (40-60); HEMOLYSIS < 15 (0-50); LDL Cholesterol Calculated 133 mg/dL (<100); Potassium 3.7 mmol/L (3.4-5.1); Sodium 139 mmol/L (137-145); Total Protein 7.2 g/dL (6.3-8.2); Triglycerides 78 mg/dL (35-150)
[2018-12-30 10:11] LABS: Thyroid Stimulating Hormone 0.02 uIU/mL (0.47-4.68)
== END ==
PROVIDERS: PCP Family Medicine; Visit Provider Family Medicine
DX: E03.9 Hypothyroidism, unspecified (principal); E78.5 Hyperlipidemia, unspecified; Z00.00 Encounter for general adult medical examination without abnormal findings
CPT/HCPCS: 36415; 80053; 80061; 84443; 85025

== ENCOUNTER → 2019-04-08 14:36 | Outpatient (CLI) | payer MEDICARE, OTHER, SELFPAY ==
[2018-05-09 11:13] VITALS: BMI 18.1
--- NOTE | 2019-04-08 | DI.ECHO.S_ITS ---
[facility] +---------+ : : [address] [place] : : : : [id number] : : : : Phone: [phone]+ Echocardiogram Report + + :Name: TITA MALHOTRA Study Date: 04/08/2019 Height: 66 in : :[facility] Exam Location: [place] Weight: 131 lb : : Gender: Female BSA: 1.7 m2 : :: 1935 Age: 84 yrs BP: 118/80 mmHg: :Reason For Study: Chemotherapy F/U (ICD Code V67.2) : : Performed By: nAn Page : :Referring: RANJIT OLMOS : + + Interpretation Summary The ejection fraction is estimated to be 60-65%. Both atria are moderately dilated. Both atria have significantly increased in size since the prior echo exam. There is mild mitral regurgitation. There is mild tricuspid regurgitation. The right ventricular systolic pressure is estimated to be at least 24 mmHg based on an estimated right atrial pressure of 3 mm Hg. Procedure: A two-dimensional transthoracic echocardiogram with color flow and Doppler was performed. The study quality was technically adequate. Comparison is made with the echocardiogram of 05/08/2018. The patient was in normal sinus rhythm during the exam. Left Ventricle: The left ventricle is normal in size, wall thickness, and systolic function without any focal wall motion abnormalities. The ejection fraction is estimated to be 60-65%. There has been no significant change since the previous exam. Left ventricular wall motion is normal. Right Ventricle: The right ventricle is normal in size and function. Atria: Both atria are moderately dilated. Both atria have significantly increased in size since the prior echo exam. There is no Doppler evidence for an interatrial shunt. Mitral Valve: The mitral valve leaflets appear mildly thickened, but open well. There is mild mitral regurgitation. Aortic Valve: The aortic valve is trileaflet. The aortic valve opens well. No aortic regurgitation is present. Tricuspid Valve: The tricuspid valve is normal in structure and function. There is mild tricuspid regurgitation. The right ventricular systolic pressure is estimated to be at least 24 mmHg based on an estimated right atrial pressure of 3 mm Hg. Pulmonic Valve: The pulmonic valve is not well visualized. There is a trace or physiologic amount of pulmonic regurgitation. Great Vessels: The aortic root is normal size. The ascending aorta could not be visualized. The pulmonary is not well visualized. The IVC is of normal diameter and collapses greater than 50% with a sniff. This suggests a low right atrial pressure of 3 mm Hg. Pericardium/ Pleura There is no pericardial effusion. There is no pleural effusion. MMode/2D Measurements & Calculations LVIDd: 4.6 cm Ao root diam: 3.3 cm LVIDs: 3.3 cm FS: 28.3 % EPSS: 0.14 cm IVSd: 0.69 cm LVPWd: 0.76 cm LV malone. diameter/BSA (cm/m^2): 2.8 LV sys. diameter/BSA (cm/m^2): 2.0 LA A2 area: 20.7 cm2 RA long axis: 5.4 cm LA A4 area: 23.2 cm2 RA area: 21.3 cm2 LA length (vol): 6.1 cm RA vol: 71.3 ml LA vol: 66.8 ml RA : 42.6 ml/m2 LA vol index: 40.0 ml/m2 IVC diam: 1.7 cm RVD1 (basal): 3.8 cm TAPSE: 2.6 cm Doppler Measurements & Calculations Ao V2 max: 106.9 cm/sec LVOT Max Haroldo: 102.7 cm/sec Ao V2 mean: 80.4 cm/sec LV V1 max P.2 mmHg Ao max P.6 mmHg LV V1 VTI: 23.9 cm Ao mean P.7 mmHg sev ratio: 0.92 Ao V2 VTI: 25.8 cm MV E max haroldo: 90.1 cm/sec TR max haroldo: 230.1 cm/sec MV A max haroldo: 110.3 cm/sec TR max P.2 mmHg MV E/A: 0.82 PA V2 max: 83.3 cm/sec Med Peak E' Haroldo: 6.8 cm/sec PA V2 mean: 56.9 cm/sec E/E' med: 13.2 PA mean P.5 mmHg Lat Peak E' Haroldo: 7.4 cm/sec PA Accel Time: 0.16 sec E/E' lat: 12.1 E/e' average: 12.7 MV dec time: 0.23 sec MV P1/2t: 67.9 msec MV P1/2t max haroldo: 90.4 cm/sec MVA(P1/2t): 3.2 cm2 Reading Physician:04:08 PM
== END ==
PROVIDERS: Family Provider Family Medicine; PCP Family Medicine; Visit Provider Internal Medicine Hematology & Oncology
DX: I08.1 Rheumatic disorders of both mitral and tricuspid valves (principal); C85.10 Unspecified B-cell lymphoma, unspecified site; C83.37 Diffuse large B-cell lymphoma, spleen
CPT/HCPCS: 80053; 83615; 85025; 93306

== ENCOUNTER 2019-09-15 08:34 | Day surgery (SDC) | payer MEDICARE, OTHER, SELFPAY ==
[2018-05-09 11:13] VITALS: BMI 18.1
[2019-09-09 09:38] VITALS: BMI 21.2
[2019-09-15 09:10] VITALS: BP 178/83; PULSE 84; RESP 16; TEMP 36.8; O2SAT 99; BMI 21.2
[2019-09-15] MEDS: LACTATED RINGERS 1,000 ML 42 ML IV (09:19)
--- NOTE | 2019-09-15 09:31 | PM.HP.1 ---
History of Present Illness History of Present Illness Date Patient Seen: 09/15/19 Time Patient Seen: 09:31 Chief complaint: 23594 Port a cath removal Narrative: The patient is a woman here for Port-A-Cath removal. She has completed treatment of a lymphoma. Patient History Medical History Asthma (Chronic) Cough (Chronic) Diffuse large B cell lymphoma (Chronic) Diverticulosis (Acute) Fracture of humeral head (Resolved) Hypothyroid (Chronic) Left humeral fracture (Resolved) Neuropathy (Acute) Pleural effusion (Resolved) Pneumonia (Resolved) Pneumothorax, acute (Resolved) Seasonal allergies (Chronic) Splenic neoplasm (Chronic) TIA (transient ischemic attack) (Resolved ~11/2007) UTI (urinary tract infection) (Resolved) Surgical History History of conization of cervix (Resolved) History of facial surgery (Resolved) History of removal of cyst (Resolved) 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) History of thoracentesis (Inactive) Hx of dilation and curettage (Resolved) Hx of endarterectomy (Resolved 02/19/08) Family & Social History Social History: household members none Tobacco & Substance use: Smoking Status Never smoker alcohol intake current alcohol intake frequency a few times a month Substance Use Type does not use Meds Home Medications and Allergies Home Medications Medication Instructions Recorded Confirmed Type aspirin [Aspirin Low Dose] 81 mg PO DAILY 03/08/18 09/09/19 History omega 5-hnr-ymz-fish oil [Fish Oil] 1,200 mg PO QDAY 03/08/18 09/09/19 History loratadine [Allerclear] 10 mg PO DAILY 04/03/18 09/09/19 History Calcium 750, D3 500, Vitamin K 1 tab PO QPM 07/29/18 09/09/19 History levothyroxine 1 tab PO DAILY 07/29/18 09/09/19 History klmrsoqamzbu-dacfzltx-fywekh 1 tab PO QPM 07/29/18 09/09/19 History [Multivitamin 50 Plus] food supplemt, lactose-reduced 8 oz PO DAILY #24 ml 04/14/19 09/09/19 Rx [Ensure] Allergies Allergy/AdvReac Type Severity Reaction Status Date / Time Penicillins Allergy Unknown Rash Verified 07/31/19 14:13 Sulfa (Sulfonamide Allergy Unknown Rash Verified 07/31/19 14:13 Antibiotics) adhesive tape AdvReac Unknown Rash Verified 07/31/19 14:13 Review of Systems Review of Systems ROS Unobtainable: All systems reviewed & are unremarkable except as noted in HPI and below Exam Vital Signs (past 8 hours): - 09/15/19 09:10 Temperature 98.2 F Pulse Rate 84 Respiratory Rate 16 Blood Pressure 178/83 H Pulse Oximetry 99 Oxygen Delivery Method Room Air Narrative Exam Narrative: Pleasant thin woman in no apparent distress. There are no rashes or redness in the area of the port. it is in the left infraclavicular fossa. Lungs are clear to auscultation. No rales or rhonchi. Heart regular rate and rhythm without murmur gallop. Patient is alert oriented x3. Assessment & Plan Assessment & Plan narrative: I have discussed removal with the patient. She prefers this to be done under sedation with local anesthetic. All questions were answered.
--- NOTE | 2019-09-15 09:34 | PM.PREOP ---
Pre-operative Note Interval Note History & Physical reviewed/Exam performed by Physician: Yes Changes to H&P: No
[2019-09-15] MEDS: CLINDAMYCIN 900 MG/50 ML PIGGYBACK 50 MG IV (09:55)
--- NOTE | 2019-09-15 10:07 | SUR.OPER ---
Supine on padded OR bed, head on pillow,left arm padded and tucked at side, legs uncrossed, safety belt at thigh, tape over blanket over lower legs .
[2019-09-15] MEDS: LIDOCAINE 1% 30 ML INJ (10:11)
[2019-09-15 10:30] VITALS: BP 137/81; PULSE 72; RESP 18; TEMP 36.9; O2SAT 98
--- NOTE | 2019-09-15 10:31 | PM.OP.1 ---
Operative Date/Time/Diagnoses Date of procedure: 09/15/19 Time of procedure: 10:32 Pre-op diagnosis: History of lymphoma post treatment Post-op diagnosis: same Procedure & Clinicians Procedure: Removal of left sided Port-A-Cath Same procedure as scheduled: Yes Indications: Patient with Port-A-Cath who has completed treatment for her lymphoma Surgeon: Mauricio Hester Click Yes if Unassisted: Yes Anesthesia Type: MAC +/- Operative Notes Findings: Port removed in its entirety Closure Type: primary Specimen(s): none sent Prosthetic devices, grafts, tissues, transplants, or devices: None inserted. Port-A-Cath removed. Estimated Blood Loss (mL): 5 Blood products transfused: none Procedure in detail: The patient is placed supine on the operating room table and underwent monitored anesthesia care/sedation. Field block was created around the Port-A-Cath in the left infraclavicular fossa. Incision is made through the old scar. It was carried down level the port. the port was removed without difficulty using sharp and blunt dissection. The tunnel created by the catheter was sutured close with 3 0 Vicryl. The subcu was closed with interrupted 3 0 Vicryl and skin was closed a running 4 0 Vicryl subcuticular stitch and Steri-Strips. Dressing was applied. Patient was taken recovery room good condition Complications: none Post-operative Condition: stable Disposition: PACU
[2019-09-15 10:55] VITALS: BP 134/78; PULSE 70; RESP 16; TEMP 37.3; O2SAT 97
--- NOTE | 2019-09-15 11:04 | SUR.PHASEII ---
dressing remains CDI, denies pain, nausea, tolerating PO well. Reported off to A ILIA Ledezma. Pt desires pain pill in efforts to control pain.
[2019-09-15] MEDS: HYDROCODONE/ACET 5/325 TABLET 1 TAB PO (11:10)
--- NOTE | 2019-09-15 11:20 | SUR.PHASEII ---
1118 ready for discharge, tolerating PO well, voided, dressing CDI, stable on feet. No questions/concerns
== END 2019-09-15 11:18 | disposition home or self-care (01) ==
PROVIDERS: PCP Student in an Organized Health Care Education/Training Program; Visit Provider Specialist
PROC: (CPT 36590; principal; 2019-09-15 09:45)
DX: Z85.72 Personal history of non-Hodgkin lymphomas (principal); J45.909 Unspecified asthma, uncomplicated; E03.9 Hypothyroidism, unspecified; Z86.73 Personal history of transient ischemic attack (TIA), and cerebral infarction without residual deficits
CPT/HCPCS: 36590; J2250; J2704; J3010

== ENCOUNTER → 2019-10-02 08:52 | Outpatient (CLI) | payer MEDICARE, OTHER, SELFPAY ==
[2019-09-16 09:04] VITALS: BMI 18.1
[2019-10-02 09:11] LABS: Add Manual Diff / Slide Review NO; Basophils Absolute Auto 100 /uL (0-100); Basophils Percent Auto 1.1 % (0-2); Eosinophils Absolute Auto 100 /uL (0-450); Eosinophils Percent Auto 2.3 % (2-4); Hemoglobin 12.8 g/dL (12.0-16.0); Lymphocytes Absolute Auto 1600 /uL (1100-4500); Lymphocytes Percent Auto 26.2 % (25-40); Mean Corpuscular HGB Conc 33.8 % (30-36); Mean Corpuscular Hemoglobin 34.8 PG (26-34); Monocytes Absolute Auto 700 /uL (0-900); Neutrophils Absolute Auto 3500 /uL (1500-7000); Neutrophils Percent Auto 58.4 % (50-75); Platelet Count 298 X10^3/uL (150-400); Red Blood Cell Count 3.69 X10^6/uL (4.0-5.2); Red Cell Distribution Width 13.3 % (11.6-14.8)
[2019-10-02 09:22] LABS: Alanine Aminotransferase 22 IU/L (<35); Albumin 4.2 g/dL (3.5-5.0); Albumin Globulin Ratio 1.5 (1.0-2.8); Alkaline Phosphatase 67 U/L (38-126); Aspartate Aminotransferase 29 IU/L (14-36); Bilirubin Total 0.6 mg/dL (0.2-1.3); Blood Urea Nitrogen 21 mg/dL (7-17); Calcium 9.7 mg/dL (8.4-10.2); Carbon Dioxide 29 mmol/L (22-32); Chloride 102 mmol/L (98-107); Estimated Glomerular Filt Rate > 60.0 mL/min (>60); Globulin 2.8 g/dL (1.7-4.1); Glucose 137 mg/dL (80-110); HEMOLYSIS < 15 (0-50); Lactate Dehydrogenase 386 U/L (313-618); Sodium 139 mmol/L (137-145)
[2019-10-04 15:27] LABS: Beta-2-Microglobulin 2.77 mg/L (< 2.52)
== END ==
PROVIDERS: PCP Student in an Organized Health Care Education/Training Program; Visit Provider Internal Medicine Hematology & Oncology
DX: C85.10 Unspecified B-cell lymphoma, unspecified site (principal)
CPT/HCPCS: 36415; 80053; 82232; 83615; 85025

== ENCOUNTER → 2019-10-28 08:57 | Outpatient (CLI) | payer MEDICARE, OTHER, SELFPAY ==
[2019-09-16 09:04] VITALS: BMI 18.1
[2019-10-28 09:51] LABS: Hemoglobin A1C% w Est Avg Glu 5.5 % (4.0-6.0)
[2019-10-28 10:58] LABS: Cholesterol 215 mg/dL (140-199); HDL Cholesterol 65 mg/dL (40-60); LDL Cholesterol Calculated 138 mg/dL (<100); Triglycerides 61 mg/dL (35-150)
[2019-10-28 11:28] LABS: TSH w/ Reflex to FT4 < 0.02 uIU/mL (0.47-4.68)
[2019-10-28 12:09] LABS: Free T4, Direct Thyroxine 2.42 ng/dL (0.78-2.19)
== END ==
PROVIDERS: PCP Student in an Organized Health Care Education/Training Program; Visit Provider Student in an Organized Health Care Education/Training Program
DX: R73.01 Impaired fasting glucose (principal); E78.5 Hyperlipidemia, unspecified
CPT/HCPCS: 36415; 80061; 83036; 84439; 84443

== ENCOUNTER → 2019-11-28 14:56 | Outpatient (CLI) | payer MEDICARE, OTHER, SELFPAY ==
[2019-09-16 09:04] VITALS: BMI 18.1
== END ==
PROVIDERS: PCP Student in an Organized Health Care Education/Training Program; Visit Provider Ophthalmology
DX: H00.031 Abscess of right upper eyelid (principal)
CPT/HCPCS: 87070; 87075; 87205

== ENCOUNTER → 2019-12-17 09:14 | Outpatient (CLI) | payer MEDICARE, OTHER, SELFPAY ==
[2019-09-16 09:04] VITALS: BMI 18.1
[2019-12-17 10:44] LABS: Thyroid Stimulating Hormone 0.03 uIU/mL (0.47-4.68)
== END ==
PROVIDERS: PCP Student in an Organized Health Care Education/Training Program; Referring Provider Student in an Organized Health Care Education/Training Program; Visit Provider Student in an Organized Health Care Education/Training Program
DX: E03.9 Hypothyroidism, unspecified (principal)
CPT/HCPCS: 36415; 84443

== ENCOUNTER → 2020-01-06 12:51 | Outpatient (CLI) | payer MEDICARE, OTHER, SELFPAY ==
[2019-09-16 09:04] VITALS: BMI 18.1
== END ==
PROVIDERS: PCP Student in an Organized Health Care Education/Training Program; Referring Provider Student in an Organized Health Care Education/Training Program; Visit Provider Student in an Organized Health Care Education/Training Program
DX: M85.852 Other specified disorders of bone density and structure, left thigh (principal); Z78.0 Asymptomatic menopausal state
CPT/HCPCS: 77080

== ENCOUNTER → 2022-02-01 10:07 | Outpatient (CLI) | payer MEDICARE, OTHER, SELFPAY ==
[2019-09-16 09:04] VITALS: BMI 18.1
== END ==
PROVIDERS: PCP Student in an Organized Health Care Education/Training Program; Referring Provider Student in an Organized Health Care Education/Training Program; Visit Provider Student in an Organized Health Care Education/Training Program
DX: M81.0 Age-related osteoporosis without current pathological fracture (principal); Z78.0 Asymptomatic menopausal state
CPT/HCPCS: 77080

== ENCOUNTER → 2022-10-04 09:55 | Outpatient (CLI) | payer MEDICARE, OTHER, SELFPAY ==
[2019-09-16 09:04] VITALS: BMI 18.1
--- NOTE | 2022-10-04 | DI.US.S_ITS ---
PROCEDURE: US CAROTID DOPPLER BI INDICATIONS: STENOSIS TECHNIQUE: Color and pulse Doppler interrogation was performed of both carotid systems, with image documentation and velocity measurements. COMPARISON: [facility], , CAROTID ARTERY DOPPLER [facility], 03/08/2011, 9:54. FINDINGS: Stenosis calculations are based on SRU (Society of Radiologists in Ultrasound) criteria. Right side: Brachial blood pressure: 143/70 mm Hg. Common carotid artery peak systolic velocity: 99 cm/sec. Internal carotid artery peak systolic velocity: 110 cm/sec. Internal carotid artery end diastolic velocity: 25 cm/sec. External carotid artery peak systolic velocity: 137 cm/sec. ICA/CCA peak systolic ratio: 1.1. Garcia scale imaging description: Mild atheromatous plaque is present at the carotid bifurcation. Percent internal carotid artery stenosis: Less than 50% stenosis . Vertebral artery: Flow direction is antegrade. Left side: Brachial blood pressure: 164/74 mm Hg. Common carotid artery peak systolic velocity: 46 cm/sec. Internal carotid artery peak systolic velocity: Occluded Internal carotid artery end diastolic velocity: Occluded External carotid artery peak systolic velocity: 79 cm/sec. ICA/CCA peak systolic ratio: Not applicable Garcia scale imaging description: No flow is visualized within the left internal carotid artery. A questionable intimal flap is noted within the distal left common carotid artery. Percent internal carotid artery stenosis: Occluded. Vertebral artery: Flow direction is antegrade. IMPRESSION: 1. Less than 50% stenosis of the right internal carotid artery. 2. Occluded left internal carotid artery. 3. Questionable intimal flap within the distal common carotid artery. If further characterization is warranted, CTA or MRA of the neck could be used. Dictated by: Anne Gomez M.D. on 10/04/2022 at 15:36 Approved by: Anne Gomez M.D. on 10/04/2022 at 15:39
== END ==
PROVIDERS: PCP Family Medicine; Referring Provider Family Medicine; Visit Provider Family Medicine
DX: R09.89 Other specified symptoms and signs involving the circulatory and respiratory systems (principal); I65.23 Occlusion and stenosis of bilateral carotid arteries; Z13.820 Encounter for screening for osteoporosis; M81.0 Age-related osteoporosis without current pathological fracture; C83.30 Diffuse large B-cell lymphoma, unspecified site; Z78.0 Asymptomatic menopausal state; Z92.23 Personal history of estrogen therapy
CPT/HCPCS: 77080; 93880

== ENCOUNTER → 2022-11-06 11:28 | Outpatient (CLI) | payer MEDICARE, OTHER, SELFPAY ==
[2019-09-16 09:04] VITALS: BMI 18.1
--- NOTE | 2022-11-06 11:30 | DI.MRI.S_ITS ---
PROCEDURE: MR ANGIO NECK W CON INDICATIONS: Abnormal findings on diagnostic imaging of other specified TECHNIQUE: Axial and sagittal TruFISP through the neck. Coronal dynamic MRA after the administration of contrast in the arterial and venous phases, with rotating 3-dimensional maximum intensity projection (MIP) reformats constructed from subtraction images. COMPARISON: [facility], US, US CAROTID DOPPLER BI, 10/04/2022, 10:36. [facility], MR, ANGIOGRAM NECK WITH CONTRAST, 04/07/2011, 7:39. FINDINGS: Image quality: Excellent. Carotid system: Left ICA is patent. Left ICA is diminutive compared to the right, but there is no significant focal stenosis utilizing NASCET criteria. On the right, the ECA is widely patent without stenosis. Posterior circulation: The origins of the vertebral arteries are unremarkable. The more superior portions of the vertebral arteries demonstrate normal course and caliber. Vertebral arteries join to form a normal appearing basilar artery. Miscellaneous: Subclavian arteries are patent throughout. Pre-contrast images through the neck demonstrate no soft tissue abnormalities. IMPRESSION: Left ICA is patent, discordant with the prior ultrasound. Left ICA is nevertheless diminutive compared to the right , without focal stenosis. Consider follow-up CT neck for further evaluation. Atherosclerotic irregularity in the distal CCA. No right ICA stenosis. Any quantitative measurements of stenosis were performed using NASCET criteria. Approved by: Bebo Johns M.D. on 11/06/2022 at 17:55
== END ==
PROVIDERS: PCP Family Medicine; Referring Provider Family Medicine; Visit Provider Family Medicine
DX: R09.89 Other specified symptoms and signs involving the circulatory and respiratory systems; R93.89 Abnormal findings on diagnostic imaging of other specified body structures
CPT/HCPCS: 70548

== ENCOUNTER → 2023-01-01 09:15 | Outpatient (CLI) | payer MEDICARE, OTHER, SELFPAY ==
[2019-09-16 09:04] VITALS: BMI 18.1
--- NOTE | 2023-01-01 | DI.RAD.S_ITS ---
PROCEDURE: XR THORACIC SPINE 2V INDICATIONS: AGE RELATED OSTEOPOROSIS TECHNIQUE: 3 views of the thoracic spine were acquired. COMPARISON: [facility], CR, XR LUMBAR SPINE 2-3V, 01/01/2023, 9:17. FINDINGS: Bones: No fractures or dislocations. Mild dextro scoliosis with the apex at T7. No suspicious bony lesions. 12 pairs of ribs are noted, and appear intact where visualized. There is moderate degenerative disc disease in thoracic spine, involving T5-T6, T6-T7, T7-T8, T8-T9, T9-T10, T10-T11, T11-T12 and T12-L1. Soft tissues: No paravertebral stripe thickening. IMPRESSION: 1. Mild scoliosis. 2. Moderate degenerative disc disease. Dictated by: Ronel Alvarez M.D. on 01/01/2023 at 12:49 Approved by: Ronel Alvarez M.D. on 01/01/2023 at 12:53
--- NOTE | 2023-01-01 | DI.RAD.S_ITS ---
PROCEDURE: XR LUMBAR SPINE 2-3V INDICATIONS: AGE RELATED OSTEOPOROSIS TECHNIQUE: 3 views of the lumbar spine were acquired. COMPARISON: None. FINDINGS: Bones: 5 [id number]-[id number] vertebrae are present. There is mild scoliosis; otherwise normal bony alignment. No vertebral body compression fractures. No suspicious bony lesions. Degenerative disc disease is present, moderate at L4-L5 and L5-S1, mild at other levels. Moderate facet arthropathy at L4-L5 and L5-S1. Soft tissues: Overlying bowel gas pattern is normal. No suspicious soft tissue calcifications. IMPRESSION: Moderate degenerative disc and facet disease in lumbar spine. Dictated by: Ronel Alvarez M.D. on 01/01/2023 at 12:47 Approved by: Ronel Alvarez M.D. on 01/01/2023 at 12:49
== END ==
PROVIDERS: PCP Family Medicine; Referring Provider Internal Medicine Endocrinology, Diabetes & Metabolism; Visit Provider Internal Medicine Endocrinology, Diabetes & Metabolism
DX: M81.0 Age-related osteoporosis without current pathological fracture (principal); M51.34 Other intervertebral disc degeneration, thoracic region; M51.36 Other intervertebral disc degeneration, lumbar region; M51.37 Other intervertebral disc degeneration, lumbosacral region; M47.816 Spondylosis without myelopathy or radiculopathy, lumbar region; M47.817 Spondylosis without myelopathy or radiculopathy, lumbosacral region; M41.9 Scoliosis, unspecified
CPT/HCPCS: 72070; 72100

== ENCOUNTER → 2023-03-21 09:15 | Outpatient (CLI) | payer MEDICARE, OTHER, SELFPAY ==
[2019-09-16 09:04] VITALS: BMI 18.1
[2023-03-21 10:35] LABS: Alanine Aminotransferase 31 IU/L (<35); Albumin 3.9 g/dL (3.5-5.0); Albumin Globulin Ratio 1.3 (1.0-2.8); Alkaline Phosphatase 56 U/L (38-126); Aspartate Aminotransferase 32 IU/L (14-36); BUN Creatinine Ratio 36.9 (6-22); Bilirubin Total 0.5 mg/dL (0.2-1.3); Blood Urea Nitrogen 24 mg/dL (7-17); Calcium 9.2 mg/dL (8.4-10.2); Carbon Dioxide 31 mmol/L (22-32); Chloride 102 mmol/L (98-107); Estimated Glomerular Filt Rate > 60 mL/min (>60); Globulin 2.9 g/dL (1.7-4.1); Glucose 134 mg/dL (80-110); HEMOLYSIS < 15 (0-50); Potassium 4.2 mmol/L (3.4-5.1); Sodium 140 mmol/L (137-145); Total Protein 6.8 g/dL (6.3-8.2)
== END ==
PROVIDERS: PCP Family Medicine; Referring Provider Internal Medicine Endocrinology, Diabetes & Metabolism; Visit Provider Internal Medicine Endocrinology, Diabetes & Metabolism
DX: M81.0 Age-related osteoporosis without current pathological fracture (principal)
CPT/HCPCS: 36415; 80053; 82306

== ENCOUNTER → 2023-07-25 09:23 | Outpatient (CLI) | payer MEDICARE, OTHER, SELFPAY ==
[2019-09-16 09:04] VITALS: BMI 18.1
[2023-07-25 11:35] LABS: BUN Creatinine Ratio 34.8 (6-22); Blood Urea Nitrogen 24 mg/dL (7-17); Calcium 9.6 mg/dL (8.4-10.2); Carbon Dioxide 31 mmol/L (22-32); Chloride 101 mmol/L (98-107); Estimated Glomerular Filt Rate > 60 mL/min (>60); Glucose 106 mg/dL (80-110); HEMOLYSIS < 15 (0-50); Potassium 4.1 mmol/L (3.4-5.1); Sodium 140 mmol/L (137-145)
[2023-07-25 11:58] LABS: Vitamin D 25 Hydroxy (D3) 88.4 ng/mL (30.0-100.0)
== END ==
PROVIDERS: PCP Family Medicine; Referring Provider Internal Medicine Endocrinology, Diabetes & Metabolism; Visit Provider Internal Medicine Endocrinology, Diabetes & Metabolism
DX: M81.0 Age-related osteoporosis without current pathological fracture (principal)
CPT/HCPCS: 36415; 80048; 82306

== ENCOUNTER 2023-08-06 11:58 | Emergency (ER) | payer MEDICARE, OTHER, SELFPAY ==
[2019-09-16 09:04] VITALS: BMI 18.1
[2023-08-06] VITALS (11 sets, daily range): BP systolic 160–180; BP diastolic 70–78; PULSE 66–82; RESP 14; TEMP 36.4; O2SAT 92–100
--- NOTE | 2023-08-06 12:05 | DI.RAD.S_ITS ---
PROCEDURE: XR HUMERUS RT 2V INDICATIONS: fall, pain upper humerus TECHNIQUE: 2 views of the humerus were acquired. COMPARISON: None. FINDINGS: Bones: Comminuted proximal humeral fracture. Generalized decreased osseous mineralization present. Medial displacement of the distal fracture fragment. No shoulder dislocation. Soft tissues: No suspicious soft tissue calcifications. IMPRESSION: Proximal humeral fracture with displacement Approved by: Bebo Johns M.D. on 08/06/2023 at 12:25
--- NOTE | 2023-08-06 12:05 | DI.RAD.S_ITS ---
PROCEDURE: XR SHOULDER RT MIN 2V INDICATIONS: fall, pain upper humerus TECHNIQUE: 3 views of the shoulder were acquired. COMPARISON: [facility], , SHOULDER MINIMUM 2 VIEW LEFT, 04/03/2009, 17:14. FINDINGS: Bones: Comminuted fracture through the proximal humerus noted with medial displacement of the distal fracture fragment. Humeral head resides normally in the glenoid fossa Soft tissues: No suspicious soft tissue calcifications. IMPRESSION: Comminuted proximal humeral fracture with displacement Approved by: Bebo Johns M.D. on 08/06/2023 at 12:21
--- NOTE | 2023-08-06 12:09 | DI.CT.S_ITS ---
PROCEDURE: CT HEAD/BRAIN WO CON INDICATIONS: Fall with head injury TECHNIQUE: Noncontrast 4.5 mm thick angled axial sections acquired from the foramen magnum to the vertex, with coronal and sagittal reformats. For radiation dose reduction, the following was used: automated exposure control, adjustment of mA and/or kV according to patient size. COMPARISON: [place], [place], [place] PET CT FUSION SKULL 2 THIGH, 09/25/2018, 14:44. FINDINGS: Image quality: Excellent. CSF spaces: Basal cisterns are patent. No extra-axial fluid collections. Ventricles are normal in size and shape. Brain: No midline shift. No intracranial masses or hemorrhage. Garcia-white matter interface is normal. Mild age-appropriate atrophy and multifocal white matter chronic ischemic change present. Dense atherosclerotic calcification noted in both ICA cavernous segments. There is a right frontal small densely calcified parafalcine extra-axial mass lesion vertex measuring 1.2 cm, consistent with meningioma. No adjacent cerebral edema Skull and face: Calvarium and visualized facial bones are intact, without suspicious lesions. Sinuses: Visualized sinuses and mastoids are clear. IMPRESSION: Mild atrophy and chronic ischemic change without intracranial hemorrhage or mass effect. Right frontal densely calcified parafalcine meningioma Approved by: Bebo Johns M.D. on 08/06/2023 at 11:58
--- NOTE | 2023-08-06 12:12 | ED_ITS ---
HPI - Fall General Chief Complaint: Fall Stated Complaint: fell/rt side arm shoulder inj/head inj Time Seen by Provider: 08/06/23 12:02 Source: patient and family Mode of arrival: Wheelchair History of Present Illness HPI Narrative: Patient is an 88-year-old female. Not on anticoagulation who is here for her injuries that she sustained when she was coming out of a store. She states she tripped on something on the ground and fell forward landing on her left arm and also hitting her head. She was somewhat dazed afterwards however no loss of consciousness. She describes her pain in the right humerus. No right elbow pain and right wrist pain. No other injuries from the event. She does have ice over her right upper arm. Related Data Home Medications Medication Instructions Recorded Confirmed aspirin 81 mg tablet,delayed 81 mg PO DAILY 03/08/18 01/15/23 release (Tricia Low Dose Aspirin) omega 6-wqq-mnp-fish oil 1,000 mg 1,200 mg PO QDAY 03/08/18 01/15/23 (120 mg-180 mg) capsule (Fish Oil) loratadine 10 mg tablet 10 mg PO DAILY 04/03/18 01/15/23 (Allerclear) Calcium 750, D3 500, Vitamin K 1 tab PO QPM 07/29/18 01/15/23 levothyroxine 112 mcg tablet 1 tab PO DAILY 07/29/18 01/15/23 pzipevobiqhq-orqsuhhc-wahgbj 1 tab PO QPM 07/29/18 01/15/23 tablet (Multivitamin 50 Plus tablet) cyanocobalamin (vitamin B-12) 1,000 mcg PO DAILY 07/17/22 01/15/23 1,000 mcg tablet (Vitamin B-12) alendronate 10 mg tablet 10 mg PO DAILY 01/15/23 01/15/23 atorvastatin 20 mg tablet (Lipitor) 20 mg PO DAILY 01/15/23 01/15/23 Previous Rx's Medication Instructions Recorded folic acid 1 mg tablet 1 mg PO DAILY #30 tabs 02/06/23 hydrocodone 5 mg-acetaminophen 325 1 tab PO Q4-6H PRN pain #20 tabs 08/06/23 mg tablet Allergies Allergy/AdvReac Type Severity Reaction Status Date / Time Penicillins Allergy Unknown Rash Verified 10/01/19 09:01 Sulfa (Sulfonamide Allergy Unknown Rash Verified 10/01/19 09:01 Antibiotics) adhesive tape AdvReac Unknown Rash Verified 10/01/19 09:01 Review of Systems Constitutional Constitutional: Reports system reviewed and no additional complaints, except as documented Musculoskeletal Musculoskeletal: Reports system reviewed and no additional complaints, except as documented Integumentary/Breasts Skin/Breast: Reports system reviewed and no additional complaints, except as documented Neurologic Neurologic: Reports system reviewed and no additional complaints, except as documented Patient History Medical History (Updated 08/06/23 @ 14:33 by Aries Craft DO) Neuropathy Diverticulosis Diffuse large B cell lymphoma Splenic neoplasm Pneumothorax, acute Left humeral fracture UTI (urinary tract infection) Cough Pneumonia TIA (transient ischemic attack) (~11/2007) Seasonal allergies Asthma Pleural effusion Fracture of humeral head Hypothyroid Surgical History 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) History of thoracentesis History of removal of cyst History of conization of cervix Hx of dilation and curettage History of facial surgery Hx of endarterectomy (02/19/08) Social History household members: none Smoking Status: Never smoker alcohol intake: current Smoking Status: Never smoker alcohol intake frequency: a few times a month Substance Use Type: does not use Exam Initial Vital Signs Initial Vital Signs: Vital Signs Temperature 97.5 F L 08/06/23 12:02 Pulse Rate 82 08/06/23 12:02 Respiratory Rate 14 08/06/23 12:02 Blood Pressure 166/73 H 08/06/23 12:02 Pulse Oximetry 99 08/06/23 12:02 Oxygen Delivery Method Room Air 08/06/23 12:02 Const General: cooperative, comfortable and No ill appearing [facility] Head: normal to inspection, normocephalic, No abrasion, No contusion, No hematoma and No laceration Resp Effort & Inspection: normal respiratory effort Back/Spine/Pelvis Cervical Spine: normal cervical lordosis and No cervical spinal tenderness Skin General: no rashes or lesions noted Neuro General: patient alert, patient awake, patient oriented x3 and moves all extremities Extrem Other: Right wrist and right elbow unremarkable. Does have tenderness to the right shoulder with limited range of motion. No clavicle tenderness. Lower extremit ies unremarkable. Procedures Orthopedic Splinting/Casting Injury #1: Side: right Upper Extremity Injury Location: upper arm Upper Extremity Immobilizer: sling/shoulder immobilizer Post splinting neuro exam: intact Post splinting vascular exam: intact Placed by: Nursing Scores Nexus Score for C-Spine Focal Neurologic deficit present: No Midline spinal tenderness present: No Altered level of conciousness present: No Intoxication present: No Distracting Injury Present: No Nexus Criteria for C-spine: 0 Course Orders Ordered: ED Orders 08/06/23 12:05 XR humerus RT 2V Stat XR shoulder RT min 2V Stat 08/06/23 12:09 CT head/brain wo con Stat Discontinued Medications Acetaminophen (Acetaminophen 325 Mg Tablet) 975 mg PO NOW ONE Stop: 08/06/23 13:00 Last Admin: 08/06/23 13:03 Dose: 975 mg Documented By: MADISON Hydrocodone Bitart/Acetaminophen (Hydrocodone/Acet 5/325 Tablet) 1 tab PO NOW ONE Stop: 08/06/23 14:31 Last Admin: 08/06/23 14:36 Dose: 1 tab Documented By: MADISON Vital Signs Vital signs: Vital Signs - 8 hr 08/06/23 12:02 08/06/23 12:03 08/06/23 12:04 Temperature 97.5 F L Pulse Rate 82 Respiratory Rate 14 Blood Pressure 166/73 H 166/73 H Pulse Oximetry 99 92 Oxygen Delivery Method Room Air 08/06/23 12:04 08/06/23 12:32 08/06/23 13:00 Temperature Pulse Rate 78 74 74 Respiratory Rate Blood Pressure Pulse Oximetry 97 96 100 Oxygen Delivery Method 08/06/23 13:30 08/06/23 14:00 08/06/23 14:30 Temperature Pulse Rate 69 66 74 Respiratory Rate Blood Pressure Pulse Oximetry 100 99 98 Oxygen Delivery Method 08/06/23 14:32 08/06/23 14:33 08/06/23 14:34 Temperature Pulse Rate 76 Respiratory Rate Blood Pressure 180/78 H 160/70 H Pulse Oximetry 98 Oxygen Delivery Method MDM - Fall Imaging Data CT scan - head: Radiologist's Impression: PROCEDURE: CT HEAD/BRAIN WO CON INDICATIONS: Fall with head injury TECHNIQUE: Noncontrast 4.5 mm thick angled axial sections acquired from the foramen magnum to the vertex, with coronal and sagittal reformats. For radiation dose reduction, the following was used: automated exposure control, adjustment of mA and/or kV according to patient size. COMPARISON: [place], [place], [place] PET CT FUSION SKULL 2 THIGH, 09/25/2018, 14:44. FINDINGS: Image quality: Excellent. CSF spaces: Basal cisterns are patent. No extra-axial fluid collections. Ventricles are normal in size and shape. Brain: No midline shift. No intracranial masses or hemorrhage. Garcia-white matter interface is normal. Mild age-appropriate atrophy and multifocal white matter chronic ischemic change present. Dense atherosclerotic calcification noted in both ICA cavernous segments. There is a right frontal small densely calcified parafalcine extra- axial mass lesion vertex measuring 1.2 cm, consistent with meningioma. No adjacent cerebral edema Skull and face: Calvarium and visualized facial bones are intact, without suspicious lesions. Sinuses: Visualized sinuses and mastoids are clear. IMPRESSION: Mild atrophy and chronic ischemic change without intracranial hemorrhage or mass effect. Right frontal densely calcified parafalcine meningioma Extremity x-ray #1: Radiologist's Impression: PROCEDURE: XR SHOULDER RT MIN 2V INDICATIONS: fall, pain upper humerus TECHNIQUE: 3 views of the shoulder were acquired. COMPARISON: [facility], SHOULDER MINIMUM 2 VIEW LEFT, 04/03/2009, 17:14. FINDINGS: Bones: Comminuted fracture through the proximal humerus noted with medial displacement of the distal fracture fragment. Humeral head resides normally in the glenoid fossa Soft tissues: No suspicious soft tissue calcifications. IMPRESSION: Comminuted proximal humeral fracture with displacement Extremity x-ray #2: Radiologist's Impression: PROCEDURE: XR HUMERUS RT 2V INDICATIONS: fall, pain upper humerus TECHNIQUE: 2 views of the humerus were acquired. COMPARISON: None. FINDINGS: Bones: Comminuted proximal humeral fracture. Generalized decreased osseous mineralization present. Medial displacement of the distal fracture fragment. No shoulder dislocation. Soft tissues: No suspicious soft tissue calcifications. IMPRESSION: Proximal humeral fracture with displacement MDM Narrative Medical decision making narrative: Patient is neurovascularly intact. She does have a proximal humerus fracture. Head CT is unremarkable. I did discuss the case with Dr. Grijalva on-call for Orthopedics who recommended a sling, early mobilization with some distraction with weights and follow up with the clinic later this week. I did discuss this with the patient. Will discharge home with a sling. He expressed understanding and agreement. Discharge Plan Departure Patient Disposition: Home Clinical Impression: Fracture, humerus Instructions: How to Use a Sling, Humeral Shaft Fracture Activity Restrictions/Additional Instructions: The sling is for your comfort. You can take it off to shower. I also recommend that you take it off to strain your arm like we discussed. Take the pain medication as needed. Contact the orthopedic doctor the number provided below for a follow-up. Return to the emergency department for new or worsening symptoms. Prescriptions: New hydrocodone-acetaminophen 5-325 mg tablet 1 tab PO Q4-6H PRN (Reason: pain) Qty: 20 0RF No Action folic acid 1 mg Tablet 1 mg PO DAILY Qty: 30 3RF Rx Instructions: take 1 tablet daily loratadine [Allerclear] 10 mg Tablet 10 mg PO DAILY cyanocobalamin (vitamin B-12) [Vitamin B-12] 1,000 mcg Tablet 1,000 mcg PO DAILY alendronate [Fosamax] 10 mg Tablet 10 mg PO DAILY atorvastatin [Lipitor] 20 mg Tablet 20 mg PO DAILY aspirin [Tricia Low Dose Aspirin] 81 mg Tablet,Delayed Release (Dr/Ec) 81 mg PO DAILY omega 2-gyl-uww-fish oil [Fish Oil] 1,000 mg (120 mg-180 mg) Capsule 1,200 mg PO QDAY levothyroxine 112 mcg tablet 1 tab PO DAILY Multivitamin 50 Plus Tablet 1 tab PO QPM Calcium 750, D3 500, Vitamin K 1 tab PO QPM Referrals: Zhao Grijalva MD [Physician] - Rojas Rose MD [Primary Care Provider] - Stand Alone Forms: Patient Portal/API
[2023-08-06] MEDS: ACETAMINOPHEN 325 MG TABLET 975 MG PO (13:03)
[2023-08-06] MEDS: HYDROCODONE/ACET 5/325 TABLET 1 TAB PO (14:36)
== END 2023-08-06 14:48 | disposition home or self-care (01) ==
PROVIDERS: Emergency Provider Emergency Medicine; PCP Family Medicine
DX: S42.201A Unspecified fracture of upper end of right humerus, initial encounter for closed fracture (principal); W01.0XXA Fall on same level from slipping, tripping and stumbling without subsequent striking against object, initial encounter
CPT/HCPCS: 70450; 73030; 73060; 99284

== ENCOUNTER 2023-08-08 20:30 | Inpatient (IN) | payer MEDICARE, OTHER, SELFPAY ==
[2019-09-16 09:04] VITALS: BMI 18.1
[2023-08-08] VITALS (11 sets, daily range): BP systolic 153–175; BP diastolic 65–79; PULSE 83–102; RESP 16; TEMP 36.3–36.9; O2SAT 95–100; BMI 20.3
--- NOTE | 2023-08-08 21:08 | DI.RAD.S_ITS ---
PROCEDURE: XR HIP W PEL IF DONE RT 2V INDICATIONS: pain right hip, fall t-2 TECHNIQUE: AP pelvis with lateral view(s) of the right hip(s). COMPARISON: None. FINDINGS: Bones: Acute fracture involving subcapital region of right femoral neck with superior and anterior migration of femoral shaft in relation to femoral head. 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 No evidence of avascular necrosis of femoral head. Pelvic ring appears intact. No suspicious bony lesions. Soft tissues: The visualized bowel gas pattern is normal. No suspicious soft tissue calcifications. IMPRESSION: Acute displaced right femoral neck fracture as above. Dictated by: Fernie Diallo M.D. on 08/08/2023 at 21:54 Approved by: Fernie Diallo M.D. on 08/08/2023 at 21:55
--- NOTE | 2023-08-08 21:45 | DI.RAD.S_ITS ---
PROCEDURE: XR CHEST 1V INDICATIONS: med clearance hip fx. TECHNIQUE: One view of the chest was acquired. COMPARISON: [facility], CR, XR CHEST 1V, 07/29/2018, 13:25. FINDINGS: Surgical changes and devices: None. Lungs and pleura: Lungs are clear. No pleural effusions or pneumothorax. Mediastinum: Mediastinal contours appear normal. Heart size is normal. Bones and chest wall: No suspicious bony lesions. Overlying soft tissues appear unremarkable. IMPRESSION: No acute cardiopulmonary pathology. Dictated by: Fernie Diallo M.D. on 08/08/2023 at 21:59 Approved by: Fernie Diallo M.D. on 08/08/2023 at 22:01
[2023-08-08] MEDS: SODIUM CHLORIDE 0.9% 1,000 ML 125 ML IV (22:00)
--- NOTE | 2023-08-08 22:13 | ED_ITS ---
HPI - Extremity Injury (Lower) General Chief Complaint: Extremity Injury, Lower Stated Complaint: glf t-2, leg pain Time Seen by Provider: 08/08/23 21:06 Source: patient Mode of arrival: EMS Limitations: no limitations History of Present Illness HPI Narrative: 8-year-old female with history of hypothyroidism, remote history of B-cell lymphoma in 2018, carotid stenosis, on aspirin daily. Patient states she would a fall 2 days ago, she states that she did hurt or break her arm but was initially not having much pain in her right hip but then started have increasing pain unable to move it, get off the toilet or walk around. She went to orthopedic office PA who had an x-ray who said there might be a fracture an outpatient CT ordered but pain increased significantly this evening. Patient states she was walking or trying to walk and felt a pop and had significant increase in pain. She denies any numbness or tingling or weakness otherwise. Has pain with movement at the hip. Pain radiates down towards leg but can move the knee itself. She states she did hit her head when she had her initial fall she did get a CT scan of her head which he said was negative, she denies any headaches or neck pain since then, no chest pain or shortness of breath, no nausea or vomiting no back pain. No abdominal back or flank pain. No nausea or vomiting. She states she is been constipated since starting some Ribera for her pain. She states she is been urinating regularly but is having a little bit of difficulty here in the department. Denies any numbness, or tingling of her extremities. She was seen by Dr. Grijalva's office for her arm fracture. Allergic to penicillin and sulfa. No tobacco, rare alcohol, no illicit. She is accompanied by her daughter. Related Data Home Medications Medication Instructions Recorded Confirmed aspirin 81 mg tablet,delayed 81 mg PO DAILY 03/08/18 01/15/23 release (Tricia Low Dose Aspirin) omega 7-mij-lgg-fish oil 1,000 mg 1,200 mg PO QDAY 03/08/18 01/15/23 (120 mg-180 mg) capsule (Fish Oil) loratadine 10 mg tablet 10 mg PO DAILY 04/03/18 01/15/23 (Allerclear) Calcium 750, D3 500, Vitamin K 1 tab PO QPM 07/29/18 01/15/23 levothyroxine 112 mcg tablet 1 tab PO DAILY 07/29/18 01/15/23 fjbbybcbvnvp-zphsutcg-udskmx 1 tab PO QPM 07/29/18 01/15/23 tablet (Multivitamin 50 Plus tablet) cyanocobalamin (vitamin B-12) 1,000 mcg PO DAILY 07/17/22 01/15/23 1,000 mcg tablet (Vitamin B-12) alendronate 10 mg tablet 10 mg PO DAILY 01/15/23 01/15/23 atorvastatin 20 mg tablet (Lipitor) 20 mg PO DAILY 01/15/23 01/15/23 Previous Rx's Medication Instructions Recorded folic acid 1 mg tablet 1 mg PO DAILY #30 tabs 02/06/23 hydrocodone 5 mg-acetaminophen 325 1 tab PO Q4-6H PRN pain #20 tabs 08/06/23 mg tablet Allergies Allergy/AdvReac Type Severity Reaction Status Date / Time Penicillins Allergy Unknown Rash Verified 10/01/19 09:01 Sulfa (Sulfonamide Allergy Unknown Rash Verified 10/01/19 09:01 Antibiotics) adhesive tape AdvReac Unknown Rash Verified 10/01/19 09:01 Review of Systems Review of Systems ROS Unobtainable: All systems reviewed & are unremarkable except as noted in HPI and below Patient History Medical History (Updated 08/08/23 @ 22:49 by Deena Bridges DO) Neuropathy Diverticulosis Diffuse large B cell lymphoma Splenic neoplasm Pneumothorax, acute Left humeral fracture UTI (urinary tract infection) Cough Pneumonia TIA (transient ischemic attack) (~11/2007) Seasonal allergies Asthma Pleural effusion Fracture of humeral head Hypothyroid Surgical History 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 HEENT: Head normocephalic, atraumatic, EOMI, pupils reactive, face symmetric, moist mucous membranes NECK: Supple, full range of motion CARDIOVASCULAR: Regular rate and rhythm without murmurs, rubs or gallops. RESPIRATORY: Breath sounds equal bilaterally, no wheezes rales or rhonchi. ABDOMEN: Soft, nontender. Normoactive bowel sounds all 4 quadrants. No guarding or rebound, rigidity, no mass : No CVA tenderness EXTREMITIES: Normal range of motion except for pain at the right hip. No pain of the right knee, tib-fib, ankle or foot. Cap refill less than 2 seconds bilateral lower extremities. Sensation throughout bilateral lower extremities. No clubbing or edema. Neurovascularly intact. +radial pulses. Patient has decreased move in the right upper extremity with appears to be a sling on her arm. NEUROLOGICAL: Cranial nerves II through XII grossly intact. Moving all extremities SKIN: Warm, dry, no petechiae, no rashes or lesions. Initial Vital Signs Initial Vital Signs: Vital Signs Temperature 98.5 F 08/08/23 20:27 Pulse Rate 98 H 08/08/23 20:27 Respiratory Rate 16 08/08/23 20:27 Blood Pressure 153/65 H 08/08/23 20:27 Pulse Oximetry 99 08/08/23 20:27 Oxygen Delivery Method Room Air 08/08/23 20:27 Course Orders Ordered: ED Orders 08/08/23 21:08 XR hip w pel if done RT 2V Stat 08/08/23 21:45 Chest [XR chest 1V] Stat 08/08/23 22:00 CBC Auto Diff [Complete Blood Count AUTO DIFF] Stat CMP [Comprehensive Metabolic Panel] Stat PTT Partial Thromboplastin Tyler Stat Prothrombin Time INR Stat 08/08/23 22:35 Type and Screen Stat 08/08/23 22:45 Consult to Orthopedic Surgery Urgent Acetaminophen (Acetaminophen 325 Mg Tablet) 650 mg PO Q6HR PRN PRN Reason: Fever/Mild Pain (1-3) Sodium Chloride (Normal Saline 0.9%) 1,000 mls @ 125 mls/hr IV CONT BRAYDON Last Admin: 08/08/23 22:00 Dose: 125 mls/hr Documented By: Sodium Chloride (Normal Saline 0.9%) 1,000 mls @ 125 mls/hr IV CONT BRAYDON Morphine Sulfate (Morphine 4 Mg/Ml Inj) 4 mg IV Q2HR PRN PRN Reason: Pain, Severe (7-10) Ondansetron HCl (Ondansetron 4 Mg/2 Ml Inj) 4 mg IV Q4HR PRN PRN Reason: Nausea And Vomiting Discontinued Medications Morphine Sulfate (Morphine 4 Mg/Ml Inj) 4 mg IV NOW ONE Stop: 08/08/23 22:35 Last Admin: 08/08/23 22:59 Dose: 4 mg Documented By: GC Morphine Sulfate (Morphine 4 Mg/Ml Inj) 4 mg IV Q2HR [facility] Vital Signs Vital signs: Vital Signs - 8 hr 08/08/23 20:27 08/08/23 20:31 08/08/23 20:32 Temperature 98.5 F Pulse Rate 98 H 97 H 95 H Respiratory Rate 16 Blood Pressure 153/65 H Pulse Oximetry 99 98 98 Oxygen Delivery Method Room Air 08/08/23 20:32 08/08/23 21:00 08/08/23 21:00 Temperature Pulse Rate 102 H Respiratory Rate Blood Pressure 153/65 H 173/79 H Pulse Oximetry 99 Oxygen Delivery Method 08/08/23 21:30 08/08/23 21:30 08/08/23 21:57 Temperature Pulse Rate 92 H 91 H Respiratory Rate Blood Pressure 155/67 H Pulse Oximetry 96 99 Oxygen Delivery Method 08/08/23 21:57 08/08/23 22:00 08/08/23 22:06 Temperature Pulse Rate 90 Respiratory Rate Blood Pressure 175/72 H 164/68 H Pulse Oximetry 98 Oxygen Delivery Method 08/08/23 22:06 08/08/23 22:30 08/08/23 22:30 Temperature Pulse Rate 85 89 Respiratory Rate Blood Pressure 154/67 H Pulse Oximetry 100 95 Oxygen Delivery Method MDM - Extremity Injury (Lower) Lab Data 08/08/23 22:00 08/08/23 22:00 Labs: Lab Results 08/08/23 08/08/23 Range/Units 22:00 22:35 WBC 12.4 H (4.5-11.0) X10^3/uL RBC 3.06 L (4.0-5.2) X10^6/uL Hgb 10.8 L (12.0-16.0) g/dL Hct 31.7 L (36-46) % MCV 103.9 H (80-100) fL MCH 35.5 H (26-34) PG MCHC 34.1 (30-36) % RDW 13.5 (11.6-14.8) % Plt Count 192 (150-400) X10^3/uL Neut % (Auto) 76.6 H (50-75) % Lymph % (Auto) 12.0 L (25-40) % Gladwin % (Auto) 11.1 (3-14) % Eos % (Auto) 0.1 L (2-4) % Baso % (Auto) 0.2 (0-2) % Neut # (Auto) 9500 H (0507-9125) /uL Lymph # (Auto) 1500 (9979-8186) /uL Gladwin # (Auto) 1400 H (0-900) /uL Eos # (Auto) 0 (0-450) /uL Baso # (Auto) 0 (0-100) /uL PT 13.4 H (10.1-12.7) SECONDS INR 1.2 (0.9-1.3) APTT 25 L (26-36) SECONDS Sodium 137 (137-145) mmol/L Potassium 4.2 (3.4-5.1) mmol/L Chloride 102 (98-107) mmol/L Carbon Dioxide 30 (22-32) mmol/L BUN 50 H (7-17) mg/dL Creatinine 0.78 (0.52-1.04) mg/dL Estimated GFR > 60 (>60) mL/min BUN/Creatinine Ratio 64.1 H (6-22) Glucose 151 H (80-110) mg/dL Calcium 9.7 (8.4-10.2) mg/dL Total Bilirubin 0.5 (0.2-1.3) mg/dL AST 44 H (14-36) IU/L ALT 33 (<35) IU/L Alkaline Phosphatase 56 (38-126) U/L Total Protein 6.5 (6.3-8.2) g/dL Albumin 3.5 (3.5-5.0) g/dL Globulin 3.0 (1.7-4.1) g/dL Albumin/Globulin Ratio 1.2 (1.0-2.8) Blood Type A Positive Antibody Screen Negative Imaging Data Chest x-ray: Radiologist's Impression: [address] [address] XRay Report Signed Patient: Lesvia Mccollum MR#: [id number] : 1935 Acct:[id number] Age/Sex: 88 / F Date of Service: 08/08/23 Loc: ED Accession Number: [id number] Procedure: XR chest 1V Ordering Provider: Deena Bridges D.O. PROCEDURE: XR CHEST 1V INDICATIONS: med clearance hip fx. TECHNIQUE: One view of the chest was acquired. COMPARISON: [facility], , XR CHEST 1V, 07/29/2018, 13:25. FINDINGS: Surgical changes and devices: None. Lungs and pleura: Lungs are clear. No pleural effusions or pneumothorax. Mediastinum: Mediastinal contours appear normal. Heart size is normal. Bones and chest wall: No suspicious bony lesions. Overlying soft tissues appear unremarkable. IMPRESSION: No acute cardiopulmonary pathology. Dictated by: Fernie Diallo M.D. on 08/08/2023 at 21:59 Approved by: Fernie Diallo M.D. on 08/08/2023 at 22:01 R hip xray: Radiologist's Impression: [place] [address] XRay Report Signed Patient: Lesvia Mccollum MR#: [id number] : 1935 Acct:[id number] Age/Sex: 88 / F Date of Service: 08/08/23 Loc: ED Accession Number: [id number] Procedure: XR hip w pel if done RT 2V Ordering Provider: Deena Bridges D.O. PROCEDURE: XR HIP W PEL IF DONE RT 2V INDICATIONS: pain right hip, fall t-2 TECHNIQUE: AP pelvis with lateral view(s) of the right hip(s). COMPARISON: None. FINDINGS: Bones: Acute fracture involving subcapital region of right femoral neck with superior and anterior migration of femoral shaft in relation to femoral head. 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 No evidence of avascular necrosis of femoral head. Pelvic ring appears intact. No suspicious bony lesions. Soft tissues: The visualized bowel gas pattern is normal. No suspicious soft tissue calcifications. IMPRESSION: Acute displaced right femoral neck fracture as above. Dictated by: Fernie Diallo M.D. on 08/08/2023 at 21:54 Approved by: Fernie Diallo M.D. on 08/08/2023 at 21:55 MDM Narrative Medical decision making narrative: 88-year-old female had a fall 2 days ago, she developed increasing right hip pain was seen orthopedic surgery had questionable fracture and x-ray was supposed to have a CT outpatient but this evening was trying to weightbear felt a pop and had significant increase in pain and presented. Patient has appears to be acute displaced right femoral neck fracture. She is neurovascularly intact. Chest x-ray was included for medical clearance. She did fall and hit her head but had head CT which was negative she is no persistent symptoms no new neck or back pain. Patient is on aspirin daily. Labs show a white count of 12, hemoglobin of 10.8 was 12 on 07/09, hematocrit is 31 with platelets of 192. Coags are appropriate. Chemistry shows Patient had type and screen. Spoke with Dr. Garcia for orthopedic surgery: Will try to take patient for OR tomorrow during the day. Asked for patient NPO Dr. Rose for admission: Accepts for admission, asked for bridging orders, saline, NPO after midnight, pain medications and a repeat CBC in the a.m. Discharge Plan Departure Patient Disposition: Admitted As Inpatient Clinical Impression: Closed fracture of right hip Admit Date/Time: 08/08/23 22:46 Admit Provider: Rojas Rose
[2023-08-08 22:20] LABS: Add Manual Diff / Slide Review NO; Basophils Absolute Auto 0 /uL (0-100); Basophils Percent Auto 0.2 % (0-2); Eosinophils Absolute Auto 0 /uL (0-450); Eosinophils Percent Auto 0.1 % (2-4); Hematocrit 31.7 % (36-46); Hemoglobin 10.8 g/dL (12.0-16.0); Lymphocytes Absolute Auto 1500 /uL (1100-4500); Mean Corpuscular HGB Conc 34.1 % (30-36); Mean Corpuscular Hemoglobin 35.5 PG (26-34); Mean Corpuscular Volume 103.9 fL (80-100); Monocytes Absolute Auto 1400 /uL (0-900); Monocytes Percent Auto 11.1 % (3-14); Neutrophils Absolute Auto 9500 /uL (1500-7000); Neutrophils Percent Auto 76.6 % (50-75); Platelet Count 192 X10^3/uL (150-400); Red Blood Cell Count 3.06 X10^6/uL (4.0-5.2); Red Cell Distribution Width 13.5 % (11.6-14.8); White Blood Cell Count 12.4 X10^3/uL (4.5-11.0)
[2023-08-08 22:22] LABS: INR 1.2 (0.9-1.3); Prothrombin Time 13.4 SECONDS (10.1-12.7)
[2023-08-08 22:24] LABS: PTT Partial Thromboplastin Tim 25 SECONDS (26-36)
[2023-08-08 22:27] LABS: Alanine Aminotransferase 33 IU/L (<35); Albumin 3.5 g/dL (3.5-5.0); Albumin Globulin Ratio 1.2 (1.0-2.8); Alkaline Phosphatase 56 U/L (38-126); Aspartate Aminotransferase 44 IU/L (14-36); BUN Creatinine Ratio 64.1 (6-22); Bilirubin Total 0.5 mg/dL (0.2-1.3); Blood Urea Nitrogen 50 mg/dL (7-17); Calcium 9.7 mg/dL (8.4-10.2); Carbon Dioxide 30 mmol/L (22-32); Chloride 102 mmol/L (98-107); Estimated Glomerular Filt Rate > 60 mL/min (>60); Glucose 151 mg/dL (80-110); HEMOLYSIS < 15 (0-50); Potassium 4.2 mmol/L (3.4-5.1); Sodium 137 mmol/L (137-145); Total Protein 6.5 g/dL (6.3-8.2)
--- NOTE | 2023-08-08 22:54 | PM.PN.1 ---
Subjective Subjective Interval history: Called by ED regarding patient. Had a fall two days ago, representing with displaced right femoral neck fracture. No blood thinners Exam Vital Signs (past 8 hours): - 08/08/23 20:27 08/08/23 20:31 08/08/23 20:32 Temperature 98.5 F Pulse Rate 98 H 97 H 95 H Respiratory Rate 16 Blood Pressure 153/65 H Pulse Oximetry 99 98 98 Oxygen Delivery Method Room Air 08/08/23 20:32 08/08/23 21:00 08/08/23 21:00 Temperature Pulse Rate 102 H Respiratory Rate Blood Pressure 153/65 H 173/79 H Pulse Oximetry 99 Oxygen Delivery Method 08/08/23 21:30 08/08/23 21:30 Temperature Pulse Rate 92 H Respiratory Rate Blood Pressure 155/67 H Pulse Oximetry 96 Oxygen Delivery Method Oxygen Delivery Method Room Air Objective Imaging Pelvis, Right Hip: My impression: Displaced right femoral neck fracture Labs 08/08/23 22:00 08/08/23 22:00 Labs: Laboratory Results - last 24 hr 08/08/23 22:00 WBC 12.4 H RBC 3.06 L Hgb 10.8 L Hct 31.7 L MCV 103.9 H MCH 35.5 H MCHC 34.1 RDW 13.5 Plt Count 192 Neut % (Auto) 76.6 H Lymph % (Auto) 12.0 L [place] % (Auto) 11.1 Eos % (Auto) 0.1 L Baso % (Auto) 0.2 Neut # (Auto) 9500 H Lymph # (Auto) 1500 [place] # (Auto) 1400 H Eos # (Auto) 0 Baso # (Auto) 0 PT 13.4 H INR 1.2 APTT 25 L Sodium 137 Potassium 4.2 Chloride 102 Carbon Dioxide 30 BUN 50 H Creatinine 0.78 Estimated GFR > 60 BUN/Creatinine Ratio 64.1 H Glucose 151 H Calcium 9.7 Total Bilirubin 0.5 AST 44 H ALT 33 Alkaline Phosphatase 56 Total Protein 6.5 Albumin 3.5 Globulin 3.0 Albumin/Globulin Ratio 1.2 PFSH Medical History (Updated 08/08/23 @ 22:49 by Deena Bridges DO) Neuropathy Diverticulosis Diffuse large B cell lymphoma Splenic neoplasm Pneumothorax, acute Left humeral fracture UTI (urinary tract infection) Cough Pneumonia TIA (transient ischemic attack) (~11/2007) Seasonal allergies Asthma Pleural effusion Fracture of humeral head Hypothyroid Surgical History 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 NPO tonight for planned surgery tomorrow. Anterior on Cobalt table with Depuy cemented stem. Have alerted the OR charge nurse. Will discuss with OR in the morning. Only takes aspirin so no need to hold surgery for blood thinners. Plan for WBAT postoperatively- but also has a proximal humerus fracture previously diagnosed which will continue to be treated nonoperatively. That will cause delayed mobility because of inability to use a walker. Anticipate SNF discharge because of the mobility challenges with the fractured proximal humerus so any necessary steps for SNF approval can be initiated immediately.
[2023-08-08] MEDS: MORPHINE 4 MG/ML INJ IV (22:59)
--- NOTE | 2023-08-08 23:06 | PC.NURSE ---
[employer] NOTE: pt had 478 cc bladder scan post void, she has a purwick , aprox. 150 in the canaster. provider aware.
[2023-08-09] MEDS: SODIUM CHLORIDE 0.9% 1,000 ML 125 ML IV ×3 (06:16→23:36)
[2023-08-09 06:17] LABS: Add Manual Diff / Slide Review NO; Basophils Absolute Auto 0 /uL (0-100); Basophils Percent Auto 0.2 % (0-2); Eosinophils Absolute Auto 100 /uL (0-450); Eosinophils Percent Auto 0.6 % (2-4); Hematocrit 28.1 % (36-46); Hemoglobin 9.7 g/dL (12.0-16.0); Lymphocytes Absolute Auto 2500 /uL (1100-4500); Lymphocytes Percent Auto 21.8 % (25-40); Mean Corpuscular HGB Conc 34.6 % (30-36); Mean Corpuscular Hemoglobin 35.8 PG (26-34); Mean Corpuscular Volume 103.4 fL (80-100); Monocytes Absolute Auto 1200 /uL (0-900); Monocytes Percent Auto 10.4 % (3-14); Neutrophils Absolute Auto 7700 /uL (1500-7000); Platelet Count 172 X10^3/uL (150-400); Red Blood Cell Count 2.71 X10^6/uL (4.0-5.2); Red Cell Distribution Width 13.6 % (11.6-14.8); White Blood Cell Count 11.5 X10^3/uL (4.5-11.0)
[2023-08-09 06:30] VITALS: BP 120/48; PULSE 73; RESP 17; TEMP 36.8; O2SAT 98
--- NOTE | 2023-08-09 07:51 | P.CONS_ITS ---
History of Present Illness Consult details Date Patient Seen: 08/09/23 Time Patient Seen: 07:51 Chief complaint: Right femoral neck fracture Narrative: 88-year-old female who sustained a femoral neck fracture. She was seen this morning on the floor. She had a fall a few days ago. She was screened in clinic for her proximal humerus fracture and also noted her hip pain. This was being worked up when she had worsening pain and presented to the emergency department. She states she is fairly active at baseline. She lives independently. She enjoys gardening. Her past medical history is significant for diffuse large B-cell lymphoma which was treated with splenectomy and chemotherapy. That was complicated by pulmonary issues which required a thoracentesis. She says that from that perspective she is stable. Meds Home Medications and Allergies Home Medications Medication Instructions Recorded Confirmed Type aspirin 81 mg tablet,delayed 81 mg PO DAILY 03/08/18 08/09/23 History release (Tricia Low Dose Aspirin) omega 7-fwz-xxq-fish oil 1,000 mg 1,200 mg PO QDAY 03/08/18 08/09/23 History (120 mg-180 mg) capsule (Fish Oil) loratadine 10 mg tablet 10 mg PO DAILY 04/03/18 08/09/23 History (Allerclear) Calcium 750, D3 500, Vitamin K 1 tab PO QPM 07/29/18 08/09/23 History gbzslxphjeov-kwlrwcap-rjjbwj 1 tab PO QPM 07/29/18 08/09/23 History tablet (Multivitamin 50 Plus tablet) cyanocobalamin (vitamin B-12) 1,000 mcg PO DAILY 07/17/22 08/09/23 History 1,000 mcg tablet (Vitamin B-12) alendronate 10 mg tablet 10 mg PO DAILY 01/15/23 08/09/23 History atorvastatin 20 mg tablet (Lipitor) 20 mg PO DAILY 01/15/23 08/09/23 History folic acid 1 mg tablet 1 mg PO DAILY #30 tabs 02/06/23 08/09/23 Rx hydrocodone 5 mg-acetaminophen 325 1 tab PO Q4-6H PRN pain #20 tabs 08/06/23 08/09/23 Rx mg tablet levothyroxine 88 mcg tablet 88 mcg PO QAM 08/09/23 08/09/23 History Allergies Allergy/AdvReac Type Severity Reaction Status Date / Time Penicillins Allergy Unknown Rash Verified 10/01/19 09:01 Sulfa (Sulfonamide Allergy Unknown Rash Verified 10/01/19 09:01 Antibiotics) adhesive tape AdvReac Unknown Rash Verified 10/01/19 09:01 Review of Systems Review of Systems ROS: Yes All systems reviewed with the patient and are negative except as otherwise documented Exam Vital Signs (past 8 hours): - 08/09/23 06:30 Temperature 98.3 F Pulse Rate 73 Respiratory Rate 17 Blood Pressure 120/48 L Pulse Oximetry 98 Oxygen Flow Rate 0 Oxygen Delivery Method Room Air Oxygen Flow Rate 0 Narrative Exam Narrative: Right lower extremity: Tender to palpation around the hip. Sensation intact to light touch in L2 through S1 nerve distributions. Flexes and extends hallux and ankle. Right upper extremity: Arm maintained a simple sling. Tender to palpation around the shoulder. Sensation intact to light touch in median ulnar and radial nerve distributions. Const General: cooperative Orientation: alert and awake HENMT Head: normal to inspection Ears: hearing grossly normal bilaterally Eyes General: appearance normal, both eyes and all related structures Neck Neck: normal visual inspection Resp Effort & Inspection: normal respiratory effort and able to speak in complete sentences Cardio Pulses: other (peripheral pulses present) Skin Lesions: no lesions Rashes: no rashes Neuro General: patient alert, patient awake and moves all extremities Psych Appearance: grossly normal Objective Imaging Pelvis and right hip: My impression: Displaced right femoral neck fracture Right shoulder: My impression: Extra-articular proximal humerus fracture Labs 08/09/23 05:42 08/08/23 22:00 Labs: Laboratory Results - last 24 hr 08/08/23 08/08/23 08/09/23 22:00 22:35 05:42 WBC 12.4 H 11.5 H RBC 3.06 L 2.71 L Hgb 10.8 L 9.7 L Hct 31.7 L 28.1 L MCV 103.9 H 103.4 H MCH 35.5 H 35.8 H MCHC 34.1 34.6 RDW 13.5 13.6 Plt Count 192 172 Neut % (Auto) 76.6 H 67.0 Lymph % (Auto) 12.0 L 21.8 L Hickman % (Auto) 11.1 10.4 Eos % (Auto) 0.1 L 0.6 L Baso % (Auto) 0.2 0.2 Neut # (Auto) 9500 H 7700 H Lymph # (Auto) 1500 2500 [place] # (Auto) 1400 H 1200 H Eos # (Auto) 0 100 Baso # (Auto) 0 0 PT 13.4 H INR 1.2 APTT 25 L Sodium 137 Potassium 4.2 Chloride 102 Carbon Dioxide 30 BUN 50 H Creatinine 0.78 Estimated GFR > 60 BUN/Creatinine Ratio 64.1 H Glucose 151 H Calcium 9.7 Total Bilirubin 0.5 AST 44 H ALT 33 Alkaline Phosphatase 56 Total Protein 6.5 Albumin 3.5 Globulin 3.0 Albumin/Globulin Ratio 1.2 Blood Type A Positive Antibody Screen Negative [facility] Medical History (Updated 08/08/23 @ 22:49 by Deena Bridges DO) Neuropathy Diverticulosis Diffuse large B cell lymphoma Splenic neoplasm Pneumothorax, acute Left humeral fracture UTI (urinary tract infection) Cough Pneumonia TIA (transient ischemic attack) (~11/2007) Seasonal allergies Asthma Pleural effusion Fracture of humeral head Hypothyroid Surgical History 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 Admitted to medicine 2. NPO for surgery today for a right hip hemiarthroplasty. If unable to find time for the case today, would plan to proceed tomorrow 3. Will be weight-bearing as tolerated postoperatively but patients typically require a walker after this surgery and she is going to have a very hard time using a walker due to her shoulder fracture. Because of this I anticipate she will need to discharge to a residential facility due to her immobility deficits 4. Use oral opioids for pain control as much as possible. Please abstain from IV opioids unless her pain is refractory to oral opioids 5. Aspirin DVT prophylaxis postoperatively
[2023-08-09 08:00] VITALS: BP 128/52; PULSE 74; RESP 16; TEMP 36.6; O2SAT 98
[2023-08-09] MEDS: OXYCODONE IR 5 MG TABLET PO ×3 (11:12→20:30)
--- NOTE | 2023-08-09 15:34 | CM.DANOTE ---
Initial DCP Assessment Note Pt is an 88 yo female, resident of [place], independent in all aspects, fell days ago and fractured her shoulder which is now in a sling. Fell again day of admission and sustained a hip fracture requiring surgical repair, patient scheduled in the OR tomorrow. PCP: Rojas Rose Payer: DENNIS/Colleen Met w/patient and her daughter Nini at bedside, introduced self and role. Nini is visiting from out of state through next week, patient has two adult sons, one in [place] and one in [place]. Patient is indp. in all aspects, drives, attends fitness classes at the [employer] and volunteers. Patient feels that SNF will likely be the safest outcome upon discharge and prefers to remain in town at [facility]. Discussed Medicare SNF benefit. Placed call to March at [facility] to review this referral. Patient has been accepted for admission once medically stable for discharge. PASRR completed in anticipation of SNF upon discharge. MELISSA Sterling Discharge Planning/Care Management CM Discharge Assessment Start: 08/09/23 15:31 Freq: Status: Active Protocol: Document 08/09/23 15:31 ALEKSANDR (Rec: 08/09/23 15:34 [id number]) Discharge Planning Assessment Assigned Traffic Analysis Technician MELISSA Pride DPOA/Assigned Designee Name Nini Peter, daughter (from out of state) Contact Information [phone] Advance Directives? Yes: Directive to Physicians, DPOA for Health Care, Consent to Release of Medical Information Advance Directives on File Yes History Provided By Patient,Medical Record Prior Living Arrangements House Household Members none Type of transporation used prior to Drives own vehicle admit Independent with ADL's Yes Is patient alert and oriented? Yes Comment uses no AD Patient/Family Preference Correction Facility Barriers to Discharge No Discharge Plan Correction Facility Transportation Arrangement Facility van Referrals Initiated Correction Additional Comment Referral to [facility] per patient's preference, [facility] has accepted for admission
[2023-08-09 16:00] VITALS: RESP 16
[2023-08-09] MEDS: ACETAMINOPHEN 325 MG TABLET 650 MG PO (20:30)
--- NOTE | 2023-08-09 21:25 | P.HP_ITS ---
History of Present Illness History of Present Illness Date Patient Seen: 08/09/23 Time Patient Seen: 08:50 Date of Onset of Symptoms: 08/06/23 Chief complaint: Right femoral neck fracture Narrative: CC: R leg pain s/p GLF with acute pain in R leg and R arm found to have proximal humerus fracture two days ago in ED as well as fracture of R femoral neck in ortho clinic today. Orthopedics is planning repair of hip with non op management of the arm. she is doing well with pain controlled as long as she does not try to move. NPO for surgery initially - will feed her if surgery must wait til tomorrow. 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) History of thoracentesis History of removal of cyst History of conization of cervix Hx of dilation and curettage History of facial surgery Hx of endarterectomy (02/19/08) Social History household members: none Smoking Status: Never smoker alcohol intake: current Meds Home Medications and Allergies Home Medications Medication Instructions Recorded Confirmed Type aspirin 81 mg tablet,delayed 81 mg PO DAILY 03/08/18 08/09/23 History release (Tricia Low Dose Aspirin) omega 3-wfs-lxn-fish oil 1,000 mg 1,200 mg PO QDAY 03/08/18 08/09/23 History (120 mg-180 mg) capsule (Fish Oil) loratadine 10 mg tablet 10 mg PO DAILY 04/03/18 08/09/23 History (Allerclear) Calcium 750, D3 500, Vitamin K 1 tab PO QPM 07/29/18 08/09/23 History drxxcxtmhots-rzyttxtl-klswge 1 tab PO QPM 07/29/18 08/09/23 History tablet (Multivitamin 50 Plus tablet) cyanocobalamin (vitamin B-12) 1,000 mcg PO DAILY 07/17/22 08/09/23 History 1,000 mcg tablet (Vitamin B-12) alendronate 10 mg tablet 10 mg PO DAILY 01/15/23 08/09/23 History atorvastatin 20 mg tablet (Lipitor) 20 mg PO QPM 01/15/23 08/09/23 History folic acid 1 mg tablet 1 mg PO DAILY #30 tabs 02/06/23 08/09/23 Rx hydrocodone 5 mg-acetaminophen 325 1 tab PO Q4-6H PRN pain #20 tabs 08/06/23 08/09/23 Rx mg tablet levothyroxine 88 mcg tablet 88 mcg PO QPM 08/09/23 08/09/23 History Allergies Allergy/AdvReac Type Severity Reaction Status Date / Time Penicillins Allergy Intermediate Rash Verified 08/09/23 11:10 Sulfa (Sulfonamide Allergy Intermediate Rash Verified 08/09/23 11:12 Antibiotics) adhesive tape AdvReac Unknown Rash Verified 10/01/19 09:01 Review of Systems Review of Systems Narrative: all systems reviewed and negative except as otherwise documented in HPI. Exam Vital Signs (past 8 hours): - 08/09/23 16:00 Respiratory Rate 16 Oxygen Delivery Method Room Air Oxygen Flow Rate 0 Narrative Exam Narrative: alert elder laying still in bed with R arm in sling Const Other: well nourished well developed HENMT Other: normocephalic Eyes Other: PERRLA, EOMI Resp Other: clear to auscultation bilaterally Cardio Other: regular rate and rhythm, S1/S2 GI Other: soft nontender nondistended Extrem Other: distal NV intact - moving all extremities - R arm in sling - R leg painful at hip to move. Objective Labs 08/09/23 05:42 08/08/23 22:00 Labs: Laboratory Results - last 24 hr 08/08/23 08/08/23 08/09/23 22:00 22:35 05:42 WBC 12.4 H 11.5 H RBC 3.06 L 2.71 L Hgb 10.8 L 9.7 L Hct 31.7 L 28.1 L MCV 103.9 H 103.4 H MCH 35.5 H 35.8 H MCHC 34.1 34.6 RDW 13.5 13.6 Plt Count 192 172 Neut % (Auto) 76.6 H 67.0 Lymph % (Auto) 12.0 L 21.8 L [place] % (Auto) 11.1 10.4 Eos % (Auto) 0.1 L 0.6 L Baso % (Auto) 0.2 0.2 Neut # (Auto) 9500 H 7700 H Lymph # (Auto) 1500 2500 [place] # (Auto) 1400 H 1200 H Eos # (Auto) 0 100 Baso # (Auto) 0 0 PT 13.4 H INR 1.2 APTT 25 L Sodium 137 Potassium 4.2 Chloride 102 Carbon Dioxide 30 BUN 50 H Creatinine 0.78 Estimated GFR > 60 BUN/Creatinine Ratio 64.1 H Glucose 151 H Calcium 9.7 Total Bilirubin 0.5 AST 44 H ALT 33 Alkaline Phosphatase 56 Total Protein 6.5 Albumin 3.5 Globulin 3.0 Albumin/Globulin Ratio 1.2 Blood Type A Positive Antibody Screen Negative Assessment & Plan Assessment & Plan narrative: #R femoral neck fracture pending repair by ortho #R comminuted proximal humeral fracture mgmt per ortho, keep in sling #hypothyroid stable continue home 88mcg #hyperlipidemia stable continue home meds dispo: likely dc to SNF after surgical repair PCP: Anne Rose dvt ppx: holding anticoagulation till after surgery diet: general, NPO before surgery
[2023-08-09 22:00] VITALS: BP 128/50; PULSE 86; RESP 18; TEMP 36.8; O2SAT 93
[2023-08-09] MEDS: MORPHINE 4 MG/ML INJ IV (23:22)
[2023-08-10] VITALS (13 sets, daily range): BP systolic 114–149; BP diastolic 43–68; PULSE 70–93; RESP 14–20; TEMP 36.1–37.2; O2SAT 93–99; BMI 20.3
--- NOTE | 2023-08-10 | DI.RAD.S_ITS ---
PROCEDURE: XR HIP W PEL IF DONE RT 2V INDICATIONS: RT HIP ALLYSSA TECHNIQUE: 4 intraoperative fluoroscopic views of the hip were acquired. COMPARISON: [facility], , XR HIP W PEL IF DONE RT 2V, 08/08/2023, 21:27. FINDINGS: Intraoperative fluoroscopic views of the right hip during arthroplasty. The hardware appears intact and in appropriate position. IMPRESSION: Intraoperative fluoroscopic views during right hip arthroplasty with intact and appropriately positioned hardware. Dictated by: Kenneth Clifford M.D. on 08/10/2023 at 10:06 Approved by: Kenneth Clifford M.D. on 08/10/2023 at 10:07
--- NOTE | 2023-08-10 07:26 | SUR.OPER ---
Supine on padded [place] table with bilateral legs secured in padded positioning boots and suspended in positioning spars, operative leg in traction per surgeon. Head on one pillow. Arm on non-operative side secured on padded armboard <90 degrees abduction. Arm on operative side padded and resting across chest then secured with tape over sheet. Padded perineal post in place per surgeon.
--- NOTE | 2023-08-10 07:27 | PM.PREOP ---
Pre-operative Note Interval Note History & Physical reviewed/Exam performed by Physician: Yes Changes to H&P: No
[2023-08-10] MEDS: LACTATED RINGERS 1,000 ML 42 ML IV (07:40)
[2023-08-10] MEDS: TRANEXAMIC ACID 1,000 MG in SODIUM CHLORIDE 0.9% 100 ML 200 MG IV ×2 (08:10→09:56)
[2023-08-10] MEDS: CEFAZOLIN VIAL 2 GM in SODIUM CHLORIDE 0.9% 100 ML IV (08:10)
[2023-08-10] MEDS: SODIUM CHLORIDE IRRIG SOLUTION 250 ML, EPINEPHrine 1 MG IRR (08:54)
[2023-08-10] MEDS: ROPIVACAINE/EPI/CLONIDINE/KET 50 ML SYRINGE INJ (09:56)
--- NOTE | 2023-08-10 10:22 | PM.OP.1 ---
Operative Date/Time/Diagnoses Date of procedure: 08/10/23 Time of procedure: : Pre-op diagnosis: Right femoral neck fracture Post-op diagnosis: same Procedure & Clinicians Procedure: Right hip hemiarthroplasty Same procedure as scheduled: Yes Indications: Right femoral neck fracture Surgeon: Bebo Garcia Sign Painter Apprentice: Veronica Duran Anesthesia Type: General and Local Operative Notes Findings: Displaced right femoral neck fracture Prosthetic devices, grafts, tissues, transplants, or devices: Depuy size 1 standard offset cemented C stem with 46 mm +0 unipolar head Estimated Blood Loss (mL): 200 Procedure in detail: This 88-year-old female sustained a ground level fall which resulted in a right proximal humerus fracture as well as a right displaced femoral neck fracture. She was admitted to the hospital. Her proximal humerus fracture was evaluated and determined to be appropriate for nonoperative treatment. Her right femoral neck fracture was displaced and would not allow mobilization without surgical intervention. She is a medically frail patient given her known diagnosis of osteoporosis for which she has previously received Fosamax as well as lymphoma for which she underwent a splenectomy as well as R-CHOP chemotherapy. I discussed with her prior to surgery the postoperative mobilization would be challenging because of her inability to use a walker. I also discussed the risks associated with the surgery in a patient with her medical conditions. Understanding the risks, she wished to proceed in order to regain her preoperative mobility. She is at baseline independent community ambulator who does not have any significant dementia. The morning of surgery the patient was met in the preoperative holding area. Informed consent was signed. The operative site was marked. All the patient's questions were answered. She was taken back to the operating room and general anesthesia was induced as a spinal anesthesia would not have been feasible given her 2 fractures. She was transferred to the [place] table and the right arm was carefully padded to accommodate her fracture. All bony prominences were padded. She was prepped and draped in the usual sterile fashion. Tranexamic acid and Ancef were administered. A time-out procedure was performed verifying the correct patient operative site medical comorbidities surgical procedure to be performed and allergies. All were in agreement. Veronica Duran MD was present for the procedure to assist with patient positioning, soft tissue retraction. Her assistance was necessary to complete the procedure. A direct anterior approach to the right hip was utilized, splitting the TFL and the rectus. The lateral circumflex vessels were identified and coagulated. Cobra retractors were placed over the inferior and superior femoral neck. A capsulotomy was performed from proximal to distal in order to protect the labrum. The reflected head of rectus was taken down. The fracture site was identified. Tag stitches were placed in the capsule for manipulation. An Ge soft tissue retractor was placed to protect the soft tissues from sharp instruments during the broaching process. A freshening cut was made proximal to the fracture with a saw. The femoral head and fracture site were removed. The acetabulum was inspected for any remaining residual bone and all fragments were removed. Trial heads were utilized we determined that a 46 mm head would appropriately fit in the [place] acetabulum. A retractor was placed over the greater trochanter and a lateral capsular release was performed, mobilizing the capsule from lateral to medial to allow it to be retracted medially during the broaching process. [place] hook was placed and the hip was placed in 90? of external rotation. With traction off the hip was then extended and adducted while manipulating the proximal femur with the [place] hook to ensure the greater trochanter did not impinge against the acetabulum. The femur was elevated and externally rotated to obtain an appropriate broaching position. Retractors were placed medially and over the greater trochanter. The lateral bone was resected to keep the broaches out of varus and an opening broach was used to obtain access to the diaphysis. A rasp was used to clear out consoles bone. I broached up to a size 1 stem. I placed a standard offset neck with a negative 3 46 mm head and removed all of the retractors and then brought the hip back up into the neutral position and reduced it. Fluoroscopically this was evaluated with a true AP pelvis with some caudal tilt. I determined that additional length and offset would be appropriate. Maximum external rotation and a 45 degree drop test both demonstrated excellent stability. I then returned to the broaching position ensuring safety during extension and adduction of the femur by dropping the leg with our traction and manipulating it with the [place] hook to avoid impingement. Retractors were replaced and I returned to the broaching position. The broach was removed and the canal was irrigated with a canal youth development specialist. The cement restrictor was placed distally. The canal was then again irrigated. Vaginal packing soaked in epinephrine was placed within the proximal femur along with a whistle-tip catheter attached to suction. Cement was introduced while the catheter remained in place and was digitally pressurized. The catheter was then removed. Additional cement was pressurized into the canal. The femoral stem was introduced and pushed down to the line demarcating the position of the broach. The cement was allowed to dry. Desiring additional offset and leg length from the initial trial and being satisfied with the stability despite that, I elected to place the final stem so that I would not have to dislocate a head trial and risk damaging the cement mantle. A neutral 46 mm head was impacted onto a clean dry trunnion. Broaches were removed, the acetabulum was inspected for any remaining cement, and the hip was reduced. Final fluoroscopic images were obtained demonstrating appropriate leg length and offset on an AP pelvis as well as appropriate stem position on AP hip. The hip was stable with a maximum external rotation test as well as a 45 degree drop test. The surgical site was soaked in Betadine and irrigated. A mixture of ropivacaine epinephrine clonidine and Toradol was infiltrated throughout the soft tissues in the surgical site for postoperative pain control. The wound was closed using a combination of Vicryl and Stratafix sutures with Dermabond and a soft dressing. She was awoken from anesthesia and transferred to a stretcher while being careful to accommodate her shoulder fracture. She was taken to the PACU and awoke without complication. In the PACU she demonstrated flexion-extension of her hallux and ankle as well as a palpable DP pulse. Postoperative images were obtained demonstrating appropriate component positioning and a reduced hip. Post-operative Plan for aftercare: 1. Weightbearing as tolerated right lower extremity. Nonweightbearing right upper extremity. Anticipate she will have a difficult time using a walker due to her shoulder fracture 2. Anticipate discharge [facility] given mobility challenges with inability to use a walker 3. Aspirin 81 mg twice per day DVT prophylaxis 4. Please refrain from any IV opioids. Do not administer IV opioids unless she has failed to respond to oral opioids 5. Please maintain ice on the surgical hip. Please use a patient belonging bag filled with ice in order to accomplish this. This may cause her linens to get wet but will provide better pain control than the small ice packs typically used here 6. Follow up outpatient in our clinic for a wound check in approximately 2 weeks
--- NOTE | 2023-08-10 10:30 | DI.RAD.S_ITS ---
PROCEDURE: XR HIP W PEL IF DONE RT 2V INDICATIONS: postop TECHNIQUE: AP pelvis and lateral view of the right hip acquired. COMPARISON: [facility], CR, XR HIP W PEL IF DONE RT 2V, 08/10/2023, 9:21. [facility], CR, XR HIP W PEL IF DONE RT 2V, 08/08/2023, 21:27. FINDINGS: Bones: Patient is status post right hip arthroplasty, with hardware components in expected positions. The hip joint appears congruent. The visualized bony structures appear intact. Soft tissues: Overlying postoperative changes are noted. No suspicious soft tissue densities. IMPRESSION: Expected postoperative changes status post right knee arthroplasty. Dictated by: Kenneth Clifford M.D. on 08/10/2023 at 10:46 Approved by: Kenneth Clifford M.D. on 08/10/2023 at 10:46
--- NOTE | 2023-08-10 15:31 | CM.DPC ---
DCP Cont: Met with patient and daughter, Jes, who is at bedside and visiting from [place]. Introduced self and role. Went over discharge planning, patient did have her surgery today. Confirmed with [facility] that [facility] can accept patient, most likely not until Sunday. Daughter concerned about patient leaving so soon, and why P.t. had not yet worked with her. Let her know that hip surgeries normally do not require increased length of stay, can be between 2-3 days, depending on progress. Jes and patient had some questions about [facility], such as laundry services, therapy. Let them know that this will all be taken care of. Gave Jes [facility]'s phone number at [facility] for additional questions. Let patient and daughter know that the therapy team will be working with her. Provided this DC Financial Reporting Analyst's name, and Ling, on white board for contacts. P: DCP to continue to follow. Plan is [facility] when medically stable. Ricarda Waters RN/[employer]er
[2023-08-10] MEDS: ATORVASTATIN 20 MG TABLET PO (18:32)
[2023-08-10] MEDS: LEVOTHYROXINE 88 MCG TABLET PO (18:32)
[2023-08-10] MEDS: CEFAZOLIN 2 GM/100 ML PREMIX 100 ML IV (18:34)
[2023-08-10] MEDS: LACTATED RINGERS 1,000 ML 100 ML IV (18:35)
[2023-08-10] MEDS: DOCUSATE 100 MG CAPSULE PO (20:36)
[2023-08-10] MEDS: ASPIRIN EC 81 MG TABLET PO (20:36)
--- NOTE | 2023-08-10 21:22 | P.PN_ITS ---
Subjective Subjective Date Patient Seen: 08/10/23 Time Patient Seen: 18:00 Interval history: Patient seen in follow-up of right arm fracture right proximal humeral fracture. Patient overall his pain controlled. Right arm seems to be the biggest issue not having any pain in her surgically repaired hip. Otherwise no chest pain no shortness a breath energy is good. Exam Vital Signs (past 8 hours): - 08/10/23 15:00 Temperature 97.7 F Pulse Rate 84 Respiratory Rate 16 Blood Pressure 114/60 Pulse Oximetry 96 Oxygen Flow Rate 0 Oxygen Delivery Method Room Air Oxygen Flow Rate 0 Narrative Exam Narrative: Alert elderly female sitting comfortably in bed right arm in sling Lungs are clear heart is regular rate and rhythm right arm not mobilized. 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 Status post surgery today. Doing well. Seems to be stable. On appropriate treatment will continue to follow with orthopedist. Right comminuted proximal humeral fracture. As per ortho. No casting at this point. Hypothyroidism. Stable. Continue usual meds. Hyperlipidemia. Will continue usual meds. Code status DNR. GI prophylaxis not required. . DVT prophylaxis. Will add Lovenox Disposition. Expect will need help and sniff probable will discuss with social service tomorrow. 55 minutes spent with patient reviewing chart discussing with nurses orders dictation
[2023-08-11] MEDS: CEFAZOLIN 2 GM/100 ML PREMIX 100 ML IV (01:48)
[2023-08-11 04:16] VITALS: BP 137/69; PULSE 80; RESP 19; TEMP 36.5; O2SAT 97
[2023-08-11 06:33] LABS: Hematocrit 24.9 % (36-46); Hemoglobin 8.6 g/dL (12.0-16.0)
[2023-08-11] MEDS: ACETAMINOPHEN 325 MG TABLET 650 MG PO ×2 (08:15→15:39)
[2023-08-11] MEDS: ASPIRIN EC 81 MG TABLET PO ×2 (08:15→20:07)
[2023-08-11] MEDS: OXYCODONE IR 5 MG TABLET PO ×3 (08:16→16:47)
[2023-08-11] MEDS: DOCUSATE 100 MG CAPSULE PO ×2 (08:16→20:07)
[2023-08-11] MEDS: ENOXAPARIN 40 MG/0.4 ML SYRINGE SUBCUT (08:17)
--- NOTE | 2023-08-11 09:38 | P.PN_ITS ---
Subjective Subjective Date Patient Seen: 08/11/23 Time Patient Seen: 09:38 Interval history: Patient's hip pain is mild. Patient is right upper arm pain is moderate. No fever chills. No shortness of breath or chest pain. Exam Vital Signs (past 8 hours): - 08/11/23 04:16 Temperature 97.7 F Pulse Rate 80 Respiratory Rate 19 Blood Pressure 137/69 Pulse Oximetry 97 Oxygen Flow Rate 0 Oxygen Delivery Method Room Air Oxygen Flow Rate 0 Narrative Exam Narrative: Pleasant 88-year-old female sitting up in bed no apparent distress. Right hip dressing is clean, dry and intact. Motor functions intact bilateral lower extremities. Sensation grossly intact to light touch bilateral upper extremities. Right arm is in his sling. Patient able to move all fingers right upper extremity. Sensation grossly intact to light touch. Const General: cooperative and comfortable Nutritional Appearance: average body habitus Orientation: alert Resp Effort & Inspection: normal respiratory effort and able to speak in complete sentences Objective Imaging X-ray right shoulder: Radiologist's impression: [address] [address] XRay Report Signed Patient: Lesvia Mccollum MR#: [id number] : 1935 Acct:[id number] Age/Sex: 88 / F Date of Service: 08/06/23 Loc: ED Accession Number: [id number] Procedure: XR shoulder RT min 2V Ordering Provider: Aries Craft D.O. PROCEDURE: XR SHOULDER RT MIN 2V INDICATIONS: fall, pain upper humerus TECHNIQUE: 3 views of the shoulder were acquired. COMPARISON: [facility], , SHOULDER MINIMUM 2 VIEW LEFT, 04/03/2009, 17:14. FINDINGS: Bones: Comminuted fracture through the proximal humerus noted with medial displacement of the distal fracture fragment. Humeral head resides normally in the glenoid fossa Soft tissues: No suspicious soft tissue calcifications. IMPRESSION: Comminuted proximal humeral fracture with displacement [address] [address] XRay Report Signed Patient: Lesvia Mccollum MR#: [id number] : 1935 Acct:[id number] Age/Sex: 88 / F Date of Service: 08/10/23 Loc: 215-1 Accession Number: [id number] Procedure: XR hip w pel if done RT 2V Ordering Provider: Bebo Garcia MD PROCEDURE: XR HIP W PEL IF DONE RT 2V INDICATIONS: RT HIP ALLYSSA TECHNIQUE: 4 intraoperative fluoroscopic views of the hip were acquired. COMPARISON: [facility], CR, XR HIP W PEL IF DONE RT 2V, 08/08/2023, 21:27. FINDINGS: Intraoperative fluoroscopic views of the right hip during arthroplasty. The hardware appears intact and in appropriate position. IMPRESSION: Intraoperative fluoroscopic views during right hip arthroplasty with intact and appropriately positioned hardware. 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 Weightbearing as tolerated right lower extremity. Nonweightbearing right upper extremity. Sling right upper extremity. Anticipate she will have a difficult time using a walker due to her shoulder fracture 2. Anticipate discharge to senior living facility given mobility challenges with inability to use a walker 3. Aspirin 81 mg twice per day DVT prophylaxis 4. Please refrain from any IV opioids. Do not administer IV opioids unless she has failed to respond to oral opioids 5. Please maintain ice on the surgical hip. Please use a patient belonging bag filled with ice in order to accomplish this. This may cause her linens to get wet but will provide better pain control than the small ice packs typically used here 6. Follow up outpatient in our clinic for a wound check in approximately 2 weeks
[2023-08-11 10:00] VITALS: BP 129/52; PULSE 101; RESP 16; TEMP 36.9; O2SAT 98
--- NOTE | 2023-08-11 11:30 | PT.IIE ---
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) History of thoracentesis Hx of dilation and curettage Hx of endarterectomy (02/19/08) Medical History (Last Reviewed 08/11/23 @ 09:43 by Antelmo Ricks PA-C) Asthma Cough Diffuse large B cell lymphoma Diverticulosis Fracture of humeral head Hypothyroid Left humeral fracture Neuropathy Pleural effusion Pneumonia Pneumothorax, acute Seasonal allergies Splenic neoplasm TIA (transient ischemic attack) (~11/2007) UTI (urinary tract infection) Physical Therapy Inpatient Evaluation/Re-Eval M1 PT/OT-IP Prior Functional Status Start: 08/11/23 13:43 Freq: NEEDED Status: Active Protocol: Document 08/11/23 11:30 AB (Rec: 08/11/23 14:09 [email or web address]) Medical Review Prior Functional Status Medical History Reviewed Yes Communication able to make needs known Mobility and Gait pt stated that she is independent with all mobilities and ambulation without AD Social History Household Members none Living Arrangements House Number of Floors (Floors) Two Floors Number of Stairs To Enter/Railing? pt can stay on main level of the house 1 step to enter Home Environment Standard Height Toilet,Walk in Shower Home Equipment Four Wheel Walker,Quad Cane, Hand Held Shower,Grab Bars Near Toilet,Grab Bars In Shower M2 PT-IP Current Condition Start: 08/11/23 13:43 Freq: NEEDED Status: Active Protocol: Document 08/11/23 11:30 AB (Rec: 08/11/23 14:09 [email or web address]) Physical Therapy Current Condition Current Condition Evaluation Date 08/11/23 Treatment Diagnosis s/p fall; L hip fx s/p hemiarthroplasty; L humeral fx ;difficulty in walking Onset Date 08/08/23 M3 PT-IP Subjective Start: 08/11/23 13:43 Freq: NEEDED Status: Active Protocol: Document 08/11/23 11:30 AB (Rec: 08/11/23 14:09 AB [email or web address]) Subjective Physical Therapy Visit Type Type Initial Evaluation Visit Start Time 11:30 Visit Stop Time 12:55 Total Visit Minutes 85 Notes PT eval order received but pt with bed rest order. informed nurse and bed rest completed. talked with PA regarding pt's precautions and clarified: pt has anterior hip precautions Number of FREIGHT ENGINEER Visits 0 Physical Therapy Visit Comments Patient Comments agreeable to do PT Therapy Pain Assessment Pain When Pain Assessed During Mobility Pain Present Pain Present Pain Reported Location Right Hip Intensity 5 Scale Used Numeric (0 - 10) Pain Management Techniques Distraction,Modification of Treatment,Re-positioning, Timing of Activity with Medications Right Shoulder Intensity 4 Scale Used Numeric (0 - 10) M4 PT-IP Mobility and Gait Start: 08/11/23 13:43 Freq: NEEDED Status: Active Protocol: Document 08/11/23 11:30 AB (Rec: 08/11/23 14:09 AB [id number]) PT-Bed Mobility Assessment Supine to Sit Supine to Sit Maximum Assistance,1 Person Assistance,2 Person Assistance ,Head of Bed Elevated,Bedrails Scooting Scooting to Edge of Bed Dependent PT-Transfer Assessment Sit to and From Stand Sit to and from Stand Maximum Assistance,2 Person Assistance,Use of Upper Extremities Equipment Transfer Assistive Device Gait Belt,Murphy Walker Orthotic/Prosthetic Devices or Brace: Yes Transfers Transfer Destination Chair Transfer Technique Stand Step Pivot Transfer Ability Level of Assist Maximum Assistance,2 Person Assistance,Use of Upper Extremities Comments Mobility Comments pt supine in bed. daughter in room. Pt lives in [place] and is only visiting pt. educated pt regarding RUE and RLE precautions and weight bearing restrictions. educated pt on anterior hip precautions for RLE. pt with confusion. completed supine to sit max A x 1-2 and max cues. HOB elevated. pt able to sit on EOB requiring mod A for initial sitting balance with increase posterior trunk lean. repositioned pt and cued to correct posture. able to sit min A afterwards. pt required total A for scooting to EOB. completed sit to stand max A and max cues using hemiwalker for support. increase posterior and lateral truk lean to the R with increase extension for trunk and LE. instructed to sit back on EOB. educated pt on sit to stand technique and safety. completed sit to stand again max A x 2 and max cues. pt continues to present with increase trunk guarding. completed step pivot transfer max A x 2 and max cues using hemiwalker. pt requiring max A x 2 to sit on chair and unable to move midway with pivot transfer cue to increase guarding presenting with increase overall extension tightness/ stiffness. positioned pt on the chair. call light and table placed within reach. informed NAC that pt requiring mechanical lift transfers with nursing staff. Gait Assessment Comments Gait Comments unable at this time PT-Balance Assessment Sitting Balance and Reactions Static Sitting Balance Ability Fair Dynamic Sitting Balance Ability Poor Standing Balance and Reactions Static Standing Balance Ability Poor Dynamic Standing Balance Ability Poor Device Used hemiwalker M5 PT-IP Objective Assessments Start: 08/11/23 13:43 Freq: NEEDED Status: Active Protocol: Document 08/11/23 11:30 AB (Rec: 08/11/23 14:09 AB [email or web address]) Orientation Orientation/Cognition Level of Alertness Confusional State Orientation Name Language Function Ability Hard of Hearing Safety Awareness Decreased Safety Awareness Memory Description Short Term Impaired Strength Lower Extremity Strength Assessment Right Impaired Hip 3-/5 Knee 3+/5 Comments Strength Comments LLE: 4-/5 Muscle Tone Muscle Tone WNL Yes M6 PT-IP Treatment Start: 08/11/23 13:43 Freq: NEEDED Status: Active Protocol: Document 08/11/23 11:30 AB (Rec: 08/11/23 14:09 AB [email or web address]) Physical Therapy Treatment Exercises Exercises Heel Slides Education Education Provided Precautions,Weight Bearing Status,Post-Op Packet,Safety M7 PT-IP Assessment and Plan Start: 08/11/23 13:43 Freq: NEEDED Status: Active Protocol: Document 08/11/23 11:30 AB (Rec: 08/11/23 14:09 AB [email or web address]) PT Summary Assessment and Plan Potential Rehabilitation Potential Fair Status of Condition at Evaluation Evolving Summary Impairments Pain,ROM,Strength,Balance, Coordination,Sensation,Tone, Cognition,Bed Mobility, Transfers,Gait,Activity Tolerance Assessment Summary pt is an 88 y/o female s/p fall. pt sustained a R proximal humeral fx and per ortho MD, no surgery needed at this time. pt will have sling on and is NWB on RLE. pt also sustained a R hip fracture and underwent hemiarthroplasty POD1. pt has anterior hip precautions (per TIM Ricks) and is WBAT. pt currently requiring max A x 1- 2 for bed mobility and max A x 2 for step pivot transfer using hemiwalker. Recommending use of mechanical lift transfers with nursing staff at this time. pt will require SNF rehab to improve mobility independence. Goals Bed Mobility Goal Minimal Assistance Transfer Goal Minimal Assistance Gait Goal Minimal Assistance,Murphy Walker Gait Distance 25 Other Goals improve bed mobility,transfers and ambulation 100 ft using LRAD SBA up/down 1 step using LRAD CGA Days to Meet Goals 10 Frequency of Treatment Frequency Of Treatment Twice a Day Treatment Plan Physical Therapy Treatment Plan Bed Mobility Training,Transfer Training,Gait Training, Therapeutic Exercise,Balance Retraining,Post Op Education, Discharge Planning,Hot or Cold Pack,Neuromuscular Re-ed, Coordination Retraining,Manual Therapy Precautions Anterior Hip Precautions No Hip Extension,No Hip External Rotation Shoulder Precautions Sling Weight Bearing Status Weight Bearing Status Non-Weight Bearing Allowed Weight Bearing Amount (enter % RUE: NWB or #) (%) RLE: WBAT Recommendations To Nursing Amount of Assist Needed Mechanical Lift Discharge Recommendations PT Discharge Recommendations SNF Rehab Transportation Needs at Discharge Wheelchair/Cabulance,Stretcher /Ambulance
--- NOTE | 2023-08-11 13:22 | CM.DPC ---
DCP Continued: MANAGER OF MAINTENANCE reviewed EMR. Per Rose, patient likely appropriate to d/c to [facility] tomorrow morning. MANAGER OF MAINTENANCE entered room and introduced self and role. Patient accompanied by daughter at bedside. Patient reports verbal understanding of d/c plan to [facility] when medically stable. MANAGER OF MAINTENANCE answered questions as best able re: services at [facility]. Patient reports concerns about her medication, MANAGER OF MAINTENANCE encouraged patient to bring up concerns with provider when he rounds. ' MANAGER OF MAINTENANCE spoke with Sarah at [facility]. Tentatively scheduled 1100 transport time to [facility] for Sunday. Plan: pending medically stability, patient will likely d/c to [facility]. Currently scheduled for 1100 Sunday. CM team will continue to follow closely. MELISSA Ruby
--- NOTE | 2023-08-11 13:39 | PM.PN.1 ---
Subjective Subjective Date Patient Seen: 08/11/23 Time Patient Seen: 13:39 Interval history: Patient seen in follow-up of right arm fracture right hip fracture. Patient overall is doing well. No major issues or complaints pain is well-controlled did not sleep great last night but overall well. Wondering about her osteoporosis medication. Exam Vital Signs (past 8 hours): - 08/11/23 10:00 Temperature 98.4 F Pulse Rate 101 H Respiratory Rate 16 Blood Pressure 129/52 L Pulse Oximetry 98 Oxygen Flow Rate 0 Oxygen Delivery Method Room Air Oxygen Flow Rate 0 Narrative Exam Narrative: Alert elderly female in no acute distress lungs are clear heart is regular rate and rhythm Objective Labs 08/11/23 06:08 08/08/23 22:00 Labs: Laboratory Results - last 24 hr 08/11/23 06:08 Hgb 8.6 L Hct 24.9 L PFSH Medical History Neuropathy Diverticulosis Diffuse large B cell lymphoma Splenic neoplasm Pneumothorax, acute Left humeral fracture UTI (urinary tract infection) Cough Pneumonia TIA (transient ischemic attack) (~11/2007) Seasonal allergies Asthma Pleural effusion Fracture of humeral head Hypothyroid Surgical History 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 Blood loss secondary to surgery. Recheck in a.m.. Will start iron to replace and re-evaluate from that. Osteoporosis. Will restart Fosamax 10 mg q.day. Right femoral neck fracture. Appears stable. As per ortho. Right comminuted proximal humeral fracture stable. As per ortho. Hypothyroidism. Continue usual thyroid replacement. Hyperlipidemia. Stable. Code status DNR. GI prophylaxis not required. DVT prophylaxis on Lovenox. Disposition. Probable discharge to [facility] tomorrow. Overall doing well. 45 minutes spent with patient daughter chart charting orders
--- NOTE | 2023-08-11 14:15 | PT.IPTN ---
Current Diagnoses Unspecified fracture of shaft of humerus, unspecified arm, initial encounter for closed fracture (08/08/23) Fracture of unspecified part of neck of right femur, initial encounter for closed fracture (08/08/23) Surgery Performed Operation Date: 08/10/23 07:45 Actual Procedures p Hip Hemiarthroplasty(Right) - Bebo Garcia MD Physical Therapy Treatment Note M2 PT-IP Current Condition Start: 08/11/23 13:43 Freq: NEEDED Status: Active Protocol: Document 08/11/23 11:30 AB (Rec: 08/11/23 14:09 AB [email or web address]) Physical Therapy Current Condition Current Condition Evaluation Date 08/11/23 Treatment Diagnosis s/p fall; L hip fx s/p hemiarthroplasty; L humeral fx ;difficulty in walking Onset Date 08/08/23 M3 PT-IP Subjective Start: 08/11/23 13:43 Freq: NEEDED Status: Active Protocol: Document 08/11/23 14:15 AB (Rec: 08/11/23 14:49 AB [email or web address]) Subjective Physical Therapy Visit Type Type Treatment Note Visit Start Time 14:15 Visit Stop Time 14:30 Total Visit Minutes [address] PASSENGER FIRER Visits 0 Physical Therapy Visit Comments Patient Comments requested to go back to bed Therapy Pain Assessment Pain When Pain Assessed At Rest Location Right Hip Scale Used pain scale not stated M4 PT-IP Mobility and Gait Start: 08/11/23 13:43 Freq: NEEDED Status: Active Protocol: Document 08/11/23 14:15 AB (Rec: 08/11/23 14:49 AB [email or web address]) PT-Bed Mobility Assessment Sit to Supine Sit to Supine Maximum Assistance,1 Person Assistance,2 Person Assistance PT-Transfer Assessment Sit to and From Stand Sit to and from Stand Maximum Assistance,2 Person Assistance,Use of Upper Extremities Equipment Transfer Assistive Device Murphy Walker Orthotic/Prosthetic Devices or Brace: Yes Transfers Transfer Destination Chair Transfer Technique Stand Step Pivot Transfer Ability Level of Assist Maximum Assistance,2 Person Assistance,Use of Upper Extremities Comments Mobility Comments NAC informed PT that pt is requesting to go back to bed. checked on pt. pt sitting on the chair and stated that she has to use the toilet. Recommending use of bed schaefer at this time. Assisted pt back to bed. instructed pt to scoot to edge of chair and required max A and max cues. pt continue to have confusion . completed sit to stand max A x 2 and max cues. completed step transfer using hemiwalker to the bed max A x 2 and max cues. pt requires one step commands with all tasks. completed sit to supine max A x 1-2 and max cues. positioned in bed. Nurse assisted and left pt with nurse to assist with bed schaefer use. M5 PT-IP Objective Assessments Start: 08/11/23 13:43 Freq: NEEDED Status: Active Protocol: Document 08/11/23 11:30 AB (Rec: 08/11/23 14:09 AB [id number]) Orientation Orientation/Cognition Level of Alertness Confusional State Orientation Name Language Function Ability Hard of Hearing Safety Awareness Decreased Safety Awareness Memory Description Short Term Impaired Strength Lower Extremity Strength Assessment Right Impaired Hip 3-/5 Knee 3+/5 Comments Strength Comments LLE: 4-/5 Muscle Tone Muscle Tone WNL Yes M6 PT-IP Treatment Start: 08/11/23 13:43 Freq: NEEDED Status: Active Protocol: Document 08/11/23 14:15 AB (Rec: 08/11/23 14:49 AB [id number]) Physical Therapy Treatment Education Education Provided Precautions,Weight Bearing Status,Safety M7 PT-IP Assessment and Plan Start: 08/11/23 13:43 Freq: NEEDED Status: Active Protocol: Document 08/11/23 14:15 AB (Rec: 08/11/23 14:49 AB [email or web address]) PT Summary Assessment and Plan Potential Rehabilitation Potential Fair Summary Impairments Pain,ROM,Strength,Balance, Coordination,Sensation,Tone, Cognition,Bed Mobility, Transfers,Gait,Activity Tolerance Progress Towards Goals Slow Progress due to Pain,Slow Progress due to Activity Tolerance,Slow Progress - Other Assessment Summary pt requiring max A x 2 with transfers using hemiwalker but able to complete step transfer safer compared to this morning's PT session but continues to require max A x 2 . pt continues to have difficulty with following instructions and requires one step repeated cues. pt will require SNF rehab to improve mobility function. Goals Bed Mobility Goal Minimal Assistance Transfer Goal Minimal Assistance Gait Goal Minimal Assistance,Murphy Walker Gait Distance 25 Other Goals improve bed mobility,transfers and ambulation 100 ft using LRAD SBA up/down 1 step using LRAD CGA Days to Meet Goals 10 Frequency of Treatment Frequency Of Treatment Twice a Day Treatment Plan Physical Therapy Treatment Plan Bed Mobility Training,Transfer Training,Gait Training, Therapeutic Exercise,Balance Retraining,Post Op Education, Discharge Planning,Hot or Cold Pack,Neuromuscular Re-ed, Coordination Retraining,Manual Therapy Precautions Anterior Hip Precautions No Hip Extension,No Hip External Rotation Weight Bearing Status Weight Bearing Status Non-Weight Bearing Allowed Weight Bearing Amount (enter % RUE: NWB or #) (%) RLE: WBAT Recommendations To Nursing Amount of Assist Needed Mechanical Lift Discharge Recommendations PT Discharge Recommendations SNF Rehab Transportation Needs at Discharge Wheelchair/Cabulance,Stretcher /Ambulance
[2023-08-11] MEDS: ONDANSETRON 4 MG ODT PO (16:47)
[2023-08-11] MEDS: LEVOTHYROXINE 88 MCG TABLET PO (16:47)
[2023-08-11] MEDS: ATORVASTATIN 20 MG TABLET PO (16:47)
[2023-08-11] MEDS: MORPHINE 4 MG/ML INJ IV (17:45)
--- NOTE | 2023-08-11 17:55 | PC.NURSE ---
Addendum entered by Genoveva Beck CNA 08/11/23 18:25: Pt began to cry due to pain after bed bath was given Nurse was notified. Original Note: Pt recieved IV morphine after giving the pt 5 mg of oxycodone at 1645 prior to giving the pt bed bath. During the bed bath pt had increased pain and pt began to cry due to pain.
[2023-08-11 18:22] VITALS: BP 130/52; PULSE 109; RESP 18; TEMP 37.3; O2SAT 99
[2023-08-11 20:10] VITALS: BP 86/42; PULSE 112; RESP 18; TEMP 37.1; O2SAT 96
[2023-08-11] MEDS: SODIUM CHLORIDE 0.9% FLUSH 10 ML IV (20:22)
[2023-08-12] VITALS (8 sets, daily range): BP systolic 97–134; BP diastolic 44–94; PULSE 69–86; RESP 16–20; TEMP 36.5–36.9; O2SAT 96–99
[2023-08-12] MEDS: METOPROLOL IR 50 MG TABLET PO (05:42)
[2023-08-12] MEDS: OXYCODONE IR 5 MG TABLET PO ×4 (05:42→20:06)
[2023-08-12 05:56] LABS: Hematocrit 24.9 % (36-46); Hemoglobin 8.3 g/dL (12.0-16.0); Mean Corpuscular HGB Conc 33.3 % (30-36); Mean Corpuscular Hemoglobin 34.7 PG (26-34); Mean Corpuscular Volume 104.4 fL (80-100); Platelet Count 211 X10^3/uL (150-400); Red Blood Cell Count 2.38 X10^6/uL (4.0-5.2); Red Cell Distribution Width 13.8 % (11.6-14.8); White Blood Cell Count 14.9 X10^3/uL (4.5-11.0)
--- NOTE | 2023-08-12 06:24 | PC.NURSE ---
Heart rate in 150's when taking routine vitals at 0400. Irregular heart rate detected on auscultation. Stat EKG ordered and MD notified. Patient placed on tele with Afib RvR. Orders placed per MD. Patient Asymptomatic.
[2023-08-12] MEDS: polyethylene glycoL 3350 17 GM POWD.PACK PO (06:59)
--- NOTE | 2023-08-12 08:51 | CM.DPC ---
Addendum entered by Ricarda Waters R.N. 08/12/23 10:08: Confirmed with Dr. Rose that patient will stay another day, due to afib, and he plans to do an echo. Stated that she should be ready tomorrow, called Sarah at [facility] and updated her, and updated manager community development. Addendum entered by Ricarda Waters R.N. 08/12/23 09:18: Left Sarah at [facility] a message asking to delay the 11:00 machine pecan picker, noted that orthopedist mentioned the H&H. Asked March in the message to keep an afternoon spot open if needed. Original Note: DCP Cont: Checked in with Sarah at [facility], confirmed that patient can be picked up at 11:00. Updated white board at main nurses station. Spoke to nurse, Nehal, and found out that patient is currently on telemetry, secondary to A-fib with RVR, may not discharge today. Updated March, have not yet seen Dr. Rose, but let her know to keep the time, and can update her. Can also move time to the afternoon if necessary. P: DCP to continue to follow for needs. Plan is [facility], but uncertain if she will discharge today, will follow up with Dr. Rose today. Ricarda Waters RN/Fire Protection Specialist
--- NOTE | 2023-08-12 09:07 | P.PN_ITS ---
Subjective Subjective Interval history: Patient seen this morning. Resting comfortably. Has been difficult to mobilize secondary to her shoulder fracture, weakness in her legs, and her hip surgery. Pain is well controlled. Exam Vital Signs (past 8 hours): - 08/12/23 04:45 08/12/23 05:38 08/12/23 06:17 Pulse Rate Respiratory Rate Blood Pressure 124/60 106/46 L 97/55 L Pulse Oximetry 08/12/23 06:51 08/12/23 06:54 Pulse Rate 75 Respiratory Rate 18 Blood Pressure 101/48 L Pulse Oximetry 96 Oxygen Delivery Method Room Air Oxygen Flow Rate 0 Narrative Exam Narrative: Right lower extremity: Anterior hip incision clean dry and intact with no strike through on the bandage. Able to weakly extend at the knee and hip against gravity. Struggles to maintain her foot off of her bed. Sensation intact to light touch throughout the entire foot. Flexion and extension intact at the hallux and ankle Right upper extremity: Swelling present around the shoulder. Sensation intact to light touch in median ulnar and radial nerve distributions. Ecchymosis throughout the arm. 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 I am extremely concerned about her long-term ability to regain her preoperative ambulation status. We need to do everything humanly possible to keep her moving as much as she can despite her injuries. We can discontinue with anterior hip precautions. I am fine with her moving her hip in any way that she is capable of. She can remove her sling from her shoulder for comfort. The sling is only in place as a pain control measure. It is important that she removed the sling at least some throughout every day so that she can perform shoulder range of motion exercises. If we are able to obtain a cuff and collar that might be more comfortable for her and more easy for her to take on and off. She does not need the sling unless she is being moved, and even then, the sling is only there to keep the fracture site from being jostled. She should use her right arm for activities of daily living as much as she is able to tolerate although obviously she can not use that arm for ambulation with a walker. Anytime she is in bed she should be doing exercises focused on her quadriceps and hip flexors, which probably will mostly mean doing leg lifts. This will be vital to ensure that once she is able to start ambulating again she actually has the strength to do so. Overall, we are faced with the challenge that the most important thing she can do is move as much as possible but her shoulder fracture and hip surgery are going to make it hard for her to actually walk. Anything that can be done to allow her to move more should be done. Aspirin DVT prophylaxis Hemoglobin 8.3 this morning. Receiving iron. Would recommend transfusion only if she is becoming symptomatic when upright or having hypotension but will defer to the primary team regarding this Will eventually discharge to senior living facility Follow up outpatient in our clinic for a wound check
[2023-08-12] MEDS: ENOXAPARIN 40 MG/0.4 ML SYRINGE SUBCUT (09:38)
[2023-08-12] MEDS: FERROUS SULFATE 325 MG TABLET PO (09:39)
[2023-08-12] MEDS: DOCUSATE 100 MG CAPSULE PO ×2 (09:39→20:06)
[2023-08-12] MEDS: ACETAMINOPHEN 325 MG TABLET 650 MG PO ×2 (09:40→15:52)
[2023-08-12] MEDS: ASPIRIN EC 81 MG TABLET PO ×2 (09:41→20:06)
[2023-08-12] MEDS: SODIUM CHLORIDE 0.9% FLUSH 10 ML IV ×2 (09:41→20:06)
--- NOTE | 2023-08-12 10:15 | DI.ECHO.S_ITS ---
[facility]---------+ [facility] +---------+ : : [address] : : : : [id number] : : : : Phone: [phone]+ Echocardiogram Report + + :Name: TITA MALHOTRA Study Date: 08/13/2023 Height: 65 in : :[facility] ReadingLocation: Weight: 122 lb : : Gender: Female BSA: 1.6 m2 : :: 1935 Age: 88 yrs BP: 101/48 mmHg: :Reason For Study: ATRIAL FIBRILLATION : :Ordering Physician: BRITTANY, : :PETERSON Performed By: Griselda Neal : :Referring: PETERSON SOTO : + + Interpretation Summary Normal left ventricle size with ejection fraction 60-65%. The left atrium is mildly dilated. Mild mitral regurgitation. Moderate tricuspid regurgitation. The right ventricular systolic pressure is estimated to be at least 38 mmHg based on an estimated right atrial pressure of 3 mm Hg. Comparison is made with the echocardiogram of 04/08/2019, tricuspid regurgitation has progressed and pulmonary artery systolic pressure has increased. Procedure: A two-dimensional transthoracic echocardiogram with color flow and Doppler was performed. The study quality was technically adequate. Comparison is made with the echocardiogram of 04/08/2019. The patient was in sinus rhythm with heart rates between 73-81 bpm during the exam. Left Ventricle: The left ventricle is normal in size and wall thickness. The ejection fraction is estimated to be 60-65%. There are no focal wall motion abnormalities. Right Ventricle: The right ventricle is normal in size and function. Atria: The left atrium is mildly dilated. Right atrial size is normal. There is no Doppler evidence for an interatrial shunt. Mitral Valve: The mitral valve leaflets appear mildly thickened, but open well. There is mild mitral regurgitation. Aortic Valve: The aortic valve is trileaflet. The aortic valve opens well. There is no aortic valve stenosis. No aortic regurgitation is present. Tricuspid Valve: The tricuspid valve leaflets are thin and pliable. There is moderate tricuspid regurgitation. The right ventricular systolic pressure is estimated to be at least 38 mmHg based on an estimated right atrial pressure of 3 mm Hg. Pulmonic Valve: The pulmonic valve is not well visualized. There is no pulmonic valvular regurgitation. Great Vessels: The aortic root is normal size. The ascending aorta could not be visualized. The IVC is of normal diameter and collapses greater than 50% with a sniff. This suggests a low right atrial pressure of 3 mm Hg. Pericardium/ Pleura There is no pericardial effusion. There is no pleural effusion. MMode/2D Measurements & Calculations LVIDd: 3.7 cm LVOT diam: 1.9 cm LVIDs: 2.7 cm Ao root diam: 3.2 cm FS: 26.9 % EPSS: 0.51 cm IVSd: 0.84 cm LVPWd: 0.87 cm LV malone. diameter/BSA (cm/m^2): 2.3 LV sys. diameter/BSA (cm/m^2): 1.7 LA A2 area: 23.4 cm2 RA long axis: 5.4 cm LA A4 area: 17.0 cm2 RA area: 18.4 cm2 LA length (vol): 5.1 cm RA vol: 53.3 ml LA vol: 66.2 ml RA : 33.3 ml/m2 LA vol index: 41.3 ml/m2 IVC diam: 1.4 cm RVD1 (basal): 3.6 cm RVD2 (mid): 2.9 cm TAPSE: 2.1 cm Doppler Measurements & Calculations Ao V2 max: 130.3 cm/sec LVOT Max Haroldo: 114.6 cm/sec Ao V2 mean: 94.2 cm/sec LV V1 max P.3 mmHg Ao max P.8 mmHg LV V1 VTI: 23.6 cm Ao mean P.9 mmHg CHARI(I,D): 2.3 cm2 Ao V2 VTI: 28.0 cm CHARI(V,D): 2.4 cm2 sev ratio: 0.84 CHARI indexed to BSA (cm^2/m^2): 1.4 MV E max haroldo: 95.6 cm/sec TR max haroldo: 295.5 cm/sec MV A max haroldo: 102.8 cm/sec TR max P.9 mmHg MV E/A: 0.93 PA V2 max: 103.3 cm/sec Med Peak E' Haroldo: 8.7 cm/sec PA V2 mean: 77.6 cm/sec E/E' med: 11.1 PA mean P.6 mmHg Lat Peak E' Haroldo: 10.7 cm/sec PA pr(Accel): 41.3 mmHg E/E' lat: 8.9 E/e' average: 10.0 MV dec time: 0.22 sec Pulm A Revs Haroldo: 35.4 cm/sec SV(LVOT): 63.9 ml Pulm A Revs Dur: 0.16 sec Electronically signed by: Maria Isabel Sloan on Reading Physician:08/13/2023 10:49 AM
--- NOTE | 2023-08-12 10:16 | P.PN_ITS ---
Subjective Subjective Date Patient Seen: 08/12/23 Time Patient Seen: 10:16 Interval history: Patient seen in follow-up of multiple issues right humerus fracture right hip fracture and anemia. Last night patient with episode of AFib with RVR. Blood pressure was maintained. She was given 50 of metoprolol and she resolved. He is now feeling better. No other significant change or complaint. Otherwise no change. She had no dizziness lightheadedness chest pain or other complaint it was randomly found on vital signs check. Converted not long after. No previous history. Exam Vital Signs (past 8 hours): - 08/12/23 04:45 08/12/23 05:38 08/12/23 06:17 Pulse Rate Respiratory Rate Blood Pressure 124/60 106/46 L 97/55 L Pulse Oximetry 08/12/23 06:51 08/12/23 06:54 Pulse Rate 75 Respiratory Rate 18 Blood Pressure 101/48 L Pulse Oximetry 96 Oxygen Delivery Method Room Air Oxygen Flow Rate 0 Narrative Exam Narrative: Alert elderly female in no acute distress Lungs are clear heart is regular rate and rhythm unchanged exam of arm and leg Objective Labs 08/12/23 05:15 08/08/23 22:00 Labs: Laboratory Results - last 24 hr 08/12/23 05:15 WBC 14.9 H RBC 2.38 L Hgb 8.3 L Hct 24.9 L MCV 104.4 H MCH 34.7 H MCHC 33.3 RDW 13.8 Plt Count 211 PFSH Medical History Neuropathy Diverticulosis Diffuse large B cell lymphoma Splenic neoplasm Pneumothorax, acute Left humeral fracture UTI (urinary tract infection) Cough Pneumonia TIA (transient ischemic attack) (~11/2007) Seasonal allergies Asthma Pleural effusion Fracture of humeral head Hypothyroid Surgical History 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 Patient with no previous episode of issue. Probably related to anemia and stress of surgery. Will obtain echo to make sure stable. Patient is on Lovenox right now and orthopedist is recommending aspirin for DVT prophylaxis on discharge and I think that would be adequate to cover for risk right now. Since she has no previous wrist. We will continue on tele and if stable by tomorrow can discharge. Without further workup depending on what echo shows which I assume will be mostly unremarkable she has a normal exam. We discussed with both patient and daughter they understand questions answered Right femoral neck fracture. Long discussion with the patient about the importance of pushing herself in increasing her mobilization. Risk without discussed. Depends on her goals but she needs to mobilize her she will not be able to return to previous function. Right comminuted proximal humeral fracture. As per ortho. Indwelling Gutiérrez catheter. Will discontinue today. Hypothyroidism. Stable. Hyperlipidemia. Stable. Code status DNR. GI prophylaxis not required. DVT prophylaxis on Lovenox although will go to custodial on aspirin. Disposition. Will have to hold today and make sure stable. Will continue on tele. Will obtain echo and if all stable will discharge tomorrow. Discussed with patient and daughter. 55 minutes spent in total with nursing social service dictation orders
--- NOTE | 2023-08-12 10:28 | PT.IPTN ---
Current Diagnoses Unspecified fracture of shaft of humerus, unspecified arm, initial encounter for closed fracture (08/08/23) Fracture of unspecified part of neck of right femur, initial encounter for closed fracture (08/08/23) Surgery Performed Operation Date: 08/10/23 07:45 Actual Procedures p Hip Hemiarthroplasty(Right) - Bebo Garcia MD Physical Therapy Treatment Note M2 PT-IP Current Condition Start: 08/11/23 13:43 Freq: NEEDED Status: Active Protocol: Document 08/11/23 11:30 AB (Rec: 08/11/23 14:09 AB [id number]) Physical Therapy Current Condition Current Condition Evaluation Date 08/11/23 Treatment Diagnosis s/p fall; L hip fx s/p hemiarthroplasty; L humeral fx ;difficulty in walking Onset Date 08/08/23 M3 PT-IP Subjective Start: 08/11/23 13:43 Freq: NEEDED Status: Active Protocol: Document 08/12/23 10:05 KS (Rec: 08/12/23 12:11 KS [id number]) Subjective Physical Therapy Visit Type Type Treatment Note Visit Start Time 10:05 Visit Stop Time 10:28 Total Visit Minutes 23 Number of TAR WORKER Visits 1 Physical Therapy Visit Comments Patient Comments Pt agreeable to try transfer to chair. Therapy Pain Assessment Pain When Pain Assessed At Rest Pain Present Pain Present Pain Reported Location Right Hip Scale Used pain scale not stated Pain Management Techniques Re-positioning,Timing of Activity with Medications M4 PT-IP Mobility and Gait Start: 08/11/23 13:43 Freq: NEEDED Status: Active Protocol: Document 08/12/23 10:05 KS (Rec: 08/12/23 12:11 KS [id number]) PT-Bed Mobility Assessment Supine to Sit Supine to Sit Maximum Assistance,1 Person Assistance,2 Person Assistance ,Head of Bed Elevated Scooting Scooting to Edge of Bed Dependent PT-Transfer Assessment Sit to and From Stand Sit to and from Stand Maximum Assistance,2 Person Assistance,Use of Upper Extremities Equipment Transfer Assistive Device Murphy Walker Orthotic/Prosthetic Devices or Brace: Yes Transfers Transfer Destination Chair Transfer Technique Stand Step Pivot Transfer Ability Level of Assist Maximum Assistance,2 Person Assistance,Use of Upper Extremities Comments Mobility Comments Pt in bed upon arrival, agreeable to try transferring to chair. RN present for assistance. Max A x1-2 for sup <>sit, Max A for scooting to EOB. Max A x2 for sit<>stand w / hemiwalker. Pt then completed stand step pivot to chair w/ hemiwalker and Max A w/ cues. Able to follow commands well and has excellent effort during transfer. max Ax2 for slow descent. Pt then completed ankle pumps, quad sets, glute sets, and seated marches. Left in chair w/ all needs in reach. Gait Assessment Comments Gait Comments unable at this time PT-Balance Assessment Sitting Balance and Reactions Static Sitting Balance Ability Fair Dynamic Sitting Balance Ability Poor Standing Balance and Reactions Static Standing Balance Ability Poor Dynamic Standing Balance Ability Poor Device Used hemiwalker M5 PT-IP Objective Assessments Start: 08/11/23 13:43 Freq: NEEDED Status: Active Protocol: Document 08/11/23 11:30 AB (Rec: 08/11/23 14:09 AB [id number]) Orientation Orientation/Cognition Level of Alertness Confusional State Orientation Name Language Function Ability Hard of Hearing Safety Awareness Decreased Safety Awareness Memory Description Short Term Impaired Strength Lower Extremity Strength Assessment Right Impaired Hip 3-/5 Knee 3+/5 Comments Strength Comments LLE: 4-/5 Muscle Tone Muscle Tone WNL Yes M6 PT-IP Treatment Start: 08/11/23 13:43 Freq: NEEDED Status: Active Protocol: Document 08/12/23 10:05 KS (Rec: 08/12/23 12:11 KS [id number]) Physical Therapy Treatment Exercises Exercises Ankle Pumps,Gluteal Sets,Quad Sets,Elbow Flexion/Extension, Wrist ROM,Hand ROM Education Education Provided Precautions,Weight Bearing Status,Safety Other Treatments Other Treatment Performed seated marching M7 PT-IP Assessment and Plan Start: 08/11/23 13:43 Freq: NEEDED Status: Active Protocol: Document 08/12/23 10:05 KS (Rec: 08/12/23 12:11 KS [id number]) PT Summary Assessment and Plan Potential Rehabilitation Potential Good Summary Impairments Pain,ROM,Strength,Balance, Coordination,Sensation,Tone, Cognition,Bed Mobility, Transfers,Gait,Activity Tolerance Progress Towards Goals Slow Progress due to Pain,Slow Progress due to Activity Tolerance Assessment Summary Pt demonstrated good effort w/ PT this morning. Still requires Max Ax1-2 but showed improved activity tolerance and was able to follow cues well. Completed stand step pivot transfer to chair using hemiwalker. Has good understanding of precautions. Able to complete BUE and BLE exercises/ROM. She will require Snf to improve strength and functional mobility. Goals Bed Mobility Goal Minimal Assistance Transfer Goal Minimal Assistance Gait Goal Minimal Assistance,Murphy Walker Gait Distance 25 Other Goals improve bed mobility,transfers and ambulation 100 ft using LRAD SBA up/down 1 step using LRAD CGA Days to Meet Goals 10 Frequency of Treatment Frequency Of Treatment Twice a Day Treatment Plan Physical Therapy Treatment Plan Bed Mobility Training,Transfer Training,Gait Training, Therapeutic Exercise,Balance Retraining,Post Op Education, Discharge Planning,Hot or Cold Pack,Neuromuscular Re-ed, Coordination Retraining,Manual Therapy Precautions Anterior Hip Precautions No Hip Extension,No Hip External Rotation Weight Bearing Status Weight Bearing Status Non-Weight Bearing Allowed Weight Bearing Amount (enter % RUE: NWB or #) (%) RLE: WBAT Recommendations To Nursing Amount of Assist Needed 2 Person Assist,PT/OT Assist Only Discharge Recommendations PT Discharge Recommendations SNF Rehab Transportation Needs at Discharge Wheelchair/Cabulance
[2023-08-12] MEDS: ONDANSETRON 4 MG ODT PO ×2 (11:37→15:52)
--- NOTE | 2023-08-12 15:08 | PT-IP ANOTE ---
Attempted to see pt this PM, but she had just transferred back to bed w/ nursing staff. Swelling in R hand. RN aware. Reveiwed LE strengthening exs, pt agreed to complete. No charge.
[2023-08-12] MEDS: ATORVASTATIN 20 MG TABLET PO (18:17)
[2023-08-12] MEDS: LEVOTHYROXINE 88 MCG TABLET PO (18:17)
[2023-08-13 01:09] VITALS: PULSE 74
[2023-08-13 02:51] VITALS: BP 109/40; PULSE 79; RESP 20; TEMP 37.2; O2SAT 98
[2023-08-13 05:45] LABS: Add Manual Diff / Slide Review NO; Basophils Absolute Auto 0 /uL (0-100); Basophils Percent Auto 0.2 % (0-2); Eosinophils Absolute Auto 700 /uL (0-450); Eosinophils Percent Auto 4.3 % (2-4); Hematocrit 23.6 % (36-46); Lymphocytes Absolute Auto 2900 /uL (1100-4500); Lymphocytes Percent Auto 17.8 % (25-40); Mean Corpuscular HGB Conc 33.8 % (30-36); Mean Corpuscular Hemoglobin 35.2 PG (26-34); Mean Corpuscular Volume 104.2 fL (80-100); Monocytes Absolute Auto 1400 /uL (0-900); Monocytes Percent Auto 8.6 % (3-14); Neutrophils Absolute Auto 11200 /uL (1500-7000); Neutrophils Percent Auto 69.1 % (50-75); Platelet Count 236 X10^3/uL (150-400); Red Blood Cell Count 2.27 X10^6/uL (4.0-5.2); White Blood Cell Count 16.3 X10^3/uL (4.5-11.0)
[2023-08-13 05:47] VITALS: BP 113/43; PULSE 75; RESP 16; TEMP 36.7; O2SAT 97
[2023-08-13 05:52] LABS: HEMOLYSIS < 15 (0-50); Potassium 4.1 mmol/L (3.4-5.1)
[2023-08-13 05:53] LABS: Alanine Aminotransferase 28 IU/L (<35); Albumin 2.5 g/dL (3.5-5.0); Albumin Globulin Ratio 0.9 (1.0-2.8); Alkaline Phosphatase 64 U/L (38-126); Aspartate Aminotransferase 45 IU/L (14-36); BUN Creatinine Ratio 36.5 (6-22); Bilirubin Total 0.5 mg/dL (0.2-1.3); Blood Urea Nitrogen 23 mg/dL (7-17); Calcium 8.3 mg/dL (8.4-10.2); Carbon Dioxide 29 mmol/L (22-32); Chloride 106 mmol/L (98-107); Estimated Glomerular Filt Rate > 60 mL/min (>60); Globulin 2.7 g/dL (1.7-4.1); Glucose 93 mg/dL (80-110); Sodium 137 mmol/L (137-145); Total Protein 5.2 g/dL (6.3-8.2)
[2023-08-13 08:00] VITALS: BP 123/59; PULSE 90; RESP 14; TEMP 36.5; O2SAT 98
[2023-08-13] MEDS: ENOXAPARIN 40 MG/0.4 ML SYRINGE SUBCUT (08:08)
[2023-08-13] MEDS: polyethylene glycoL 3350 17 GM POWD.PACK PO (08:08)
[2023-08-13] MEDS: FERROUS SULFATE 325 MG TABLET PO (08:09)
[2023-08-13] MEDS: DOCUSATE 100 MG CAPSULE PO (08:09)
[2023-08-13] MEDS: ASPIRIN EC 81 MG TABLET PO (08:09)
[2023-08-13] MEDS: SODIUM CHLORIDE 0.9% FLUSH 10 ML IV (08:10)
--- NOTE | 2023-08-13 08:38 | PM.DS.1 ---
History of Present Illness History of Present Illness Chief complaint: Right femoral neck fracture Discharge Providers Provider Date of admission: 08/08/23 22:46 Discharge Date: 08/13/23 Primary care physician: Rojas Rose MD Consults: 08/08/23 22:45 Consult to Orthopedic Surgery Urgent Comment: Consulting Provider: Bebo Garcia Reason for consultation: right hip fracture Has provider been notified: Yes 08/08/23 23:43 Consult to Pastoral Services Routine Comment: per pt request 08/10/23 17:52 Consult to Discharge Planning Routine Comment: Consult to Occupational Therapy Evaluate & Treat Comment: Physician Instructions: Evaluate and treat Consult to Physical Therapy Evaluate & Treat Comment: Physician Instructions: post op REBECA protocol Discharge provider: Rojas Rose MD Summary Hospital Course Discharge Diagnosis: Right femoral neck fracture status post repair Right comminuted proximal humeral fracture Atrial fibrillation with RVR. New Anemia blood loss Hypothyroidism Osteoporosis Hyperlipidemia Elevated white count Hospital Course: Right femoral neck fracture status post repair. Patient was admitted and was seen by orthopedist. On day 2 of admission she was taken for repair. Patient did well. No major issues status post repair. Patient was slow to mobilize. But otherwise doing well. Pain was well controlled. Will be discharged to senior living for evaluation and strengthening. Physical therapy and follow by orthopedist. Right comminuted proximal humeral fracture. Patient on same fall 2 days prior to admission had fractured her right arm. It was felt it was not surgical. And is going to be followed with orthopedist with basically immobilization and slow increase in mobilization. As per orthopedist physical therapy and strengthening. Atrial fibrillation. Two days prior to discharge patient was noted to develop AFib with RVR. No previous history. No chest pain. No dizziness no symptoms at all. Heart rates in the 120-150. But was given metoprolol and converted. Echo was obtained but not available as of this report. She is had no recurrence. Duncan to be low risk for recurrence will continue on aspirin for now. Will not anticoagulate unless she recurs. Will contact with echo result. Anemia blood loss probably secondary to surgery. Was started on iron and will be followed. Should have CBC in 2 weeks. Hypothyroidism. Patient was stable on her usual dose. Will continue. Osteoporosis patient has overall been doing well. Clearly needs her Fosamax. She is getting 10 mg a day. Did not have an hospital. Will restarted as outpatient. Hyperlipidemia. Stable. Continue usual meds. Mild increase in white count. He has been a slow increase in her white count with no symptoms or other issues. She is had no fevers. No other changes. Will need to be followed as an outpatient. Will need CBC any way for iron issues could consider repeat in 1 week. Status at Discharge Cognitive/behavioral status at discharge: at baseline, oriented Exam Vital Signs (past 8 hours): - 08/13/23 01:09 08/13/23 02:51 08/13/23 05:47 Temperature 98.9 F 98.1 F Pulse Rate 74 79 75 Respiratory Rate 20 16 Blood Pressure 109/40 L 113/43 L Pulse Oximetry 98 97 Oxygen Flow Rate 0 0 Oxygen Delivery Method Room Air Oxygen Flow Rate 0 Narrative Exam Narrative: Alert elderly female sitting in chair in no acute distress Lungs are clear heart is regular rate and rhythm abdomen is soft positive bowel sounds nontender extremities without cyanosis clubbing edema Objective Labs 08/13/23 05:15 08/13/23 05:15 Labs: Laboratory Results - last 24 hr 08/13/23 05:15 WBC 16.3 H RBC 2.27 L Hgb 8.0 L Hct 23.6 L MCV 104.2 H MCH 35.2 H MCHC 33.8 RDW 14.0 Plt Count 236 Neut % (Auto) 69.1 Lymph % (Auto) 17.8 L Maury % (Auto) 8.6 Eos % (Auto) 4.3 H Baso % (Auto) 0.2 Neut # (Auto) 86228 H Lymph # (Auto) 2900 Maury # (Auto) 1400 H Eos # (Auto) 700 H Baso # (Auto) 0 Sodium 137 Potassium 4.1 Chloride 106 Carbon Dioxide 29 BUN 23 H Creatinine 0.63 Estimated GFR > 60 BUN/Creatinine Ratio 36.5 H Glucose 93 Calcium 8.3 L Total Bilirubin 0.5 AST 45 H ALT 28 Alkaline Phosphatase 64 Total Protein 5.2 L Albumin 2.5 L Globulin 2.7 Albumin/Globulin Ratio 0.9 L PFSH Medical History Neuropathy Diverticulosis Diffuse large B cell lymphoma Splenic neoplasm Pneumothorax, acute Left humeral fracture UTI (urinary tract infection) Cough Pneumonia TIA (transient ischemic attack) (~11/2007) Seasonal allergies Asthma Pleural effusion Fracture of humeral head Hypothyroid Surgical History 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 Plan of Treatment: Discharge to rehab center Discharge Plan Discharge Plan Patient Disposition: SNF Transfer to: [facility] Under care of provider: cherie dailey Discharge orders & Medications Prescriptions: New acetaminophen 325 mg Tablet 650 mg PO Q6HR PRN (Reason: Fever/Mild Pain (1-3)) Qty: 100 0RF docusate sodium 100 mg Capsule 100 mg PO BID Qty: 60 0RF ferrous sulfate 325 mg (65 mg iron) Tablet 325 mg PO DAILY Qty: 60 0RF oxycodone 5 mg Tablet 5 mg PO Q4HR PRN (Reason: Pain, Moderate (4-6)) Qty: 60 0RF Continued folic acid 1 mg Tablet 1 mg PO DAILY Qty: 30 3RF Rx Instructions: take 1 tablet daily loratadine [Allerclear] 10 mg Tablet 10 mg PO DAILY cyanocobalamin (vitamin B-12) [Vitamin B-12] 1,000 mcg Tablet 1,000 mcg PO DAILY alendronate 10 mg Tablet 10 mg PO DAILY atorvastatin [Lipitor] 20 mg Tablet 20 mg PO QPM hydrocodone-acetaminophen 5-325 mg tablet 1 tab PO Q4-6H PRN (Reason: pain) Qty: 20 0RF levothyroxine 88 mcg tablet 88 mcg PO QPM aspirin [Tricia Low Dose Aspirin] 81 mg Tablet,Delayed Release (Dr/Ec) 81 mg PO DAILY omega 1-uvf-cxr-fish oil [Fish Oil] 1,000 mg (120 mg-180 mg) Capsule 1,200 mg PO QDAY Multivitamin 50 Plus Tablet 1 tab PO QPM Calcium 750, D3 500, Vitamin K 1 tab PO QPM Follow up/Referrals: Rojas Rose MD [Primary Care Provider] - 6 Weeks Discharge Health Status Multidrug resistant organism: No MDRO Precautions: [place] Diet/Activity/Treatments Diet: Diet as Tolerated Liquid consistency: Normal/Thin Food texture: Regular Skin/Wound/Dressing Care Report to your healthcare provider any signs of infection, such as:: chills, fever, night sweats, increased pain and unusual drainage Special Rehabilitation Services Reason for rehabilitation: Post-operative therapy Restrictions to mobility: As per orthopedist Visit Report/Discharge Packet Stand Alone Forms: Patient Portal/API Discharge Data Primary Care Provider: Rojas Rose
[2023-08-13] MEDS: OXYCODONE IR 5 MG TABLET PO (12:13)
--- NOTE | 2023-08-13 12:26 | CM.DPC ---
DCP Continued: BAG FILLER MACHINE OPERATOR reviewed EMR. Per provider, patient stable to d/c to [facility] today. Gave this BAG FILLER MACHINE OPERATOR signed med list. Per Sarah at [facility], able to accept patient at 1300 today. BAG FILLER MACHINE OPERATOR updated RN and NUTRITION ASSISTANT. BAG FILLER MACHINE OPERATOR gave RN nursing report number. BAG FILLER MACHINE OPERATOR gave signed MED list and PASSR to Tipping Machine Operator Harika. Harika kindly agreed to send PASRR, d/c summary, and copy of med list/scripts to [facility]. March had questions about d/c meds. BAG FILLER MACHINE OPERATOR called Rose office and spoke with ruffling hemmer automatic about concern. Nurse called back and spoke with Rose Shabazz will make an amendment to the d/c summary. BAG FILLER MACHINE OPERATOR entered room and reintroduced self and role. Patient accompanied by daughter and CROW at bedside. BAG FILLER MACHINE OPERATOR updated patient on d/c plan, patient in verbal agreement. BAG FILLER MACHINE OPERATOR answered questions to best of ability re: [facility]. Patient and family had questions re: HH following rehab services. BAG FILLER MACHINE OPERATOR answered to best of ability. Plan: patient to d/c to [facility] today at 1300. CM team will continue to follow closely. MELISSA Ruby
--- NOTE | 2023-08-13 12:34 | PC.NURSE ---
Day shift: Notified MD Rose of increased WBC this am and slightly puffy R hand. CMS + in R hand. No numbness or redness. Strong pulse. Hand has been hanging down in sling the last few days. Pt said she would do more PT exercises and this RN helped her elevate her hand. R shoulder bruise, no swelling or redness. Pt rates pain 3/10 with movement. OOB with 1PA. PIV and tele removed prior to transfer to [facility]. Packet including hard scripts in packet - given to [facility] transport. Called and gave Mayela at [facility] report. Pt's daughter and son-in-law at bedside and accompanied her to [facility]. All belongings with patient and family. Pt left via wheelchair with [facility] transport.
== END 2023-08-13 13:07 | DRG 522 ==
LOC: ED 21:44 → AC 22:48
PROVIDERS: Orthopaedic Surgery Adult Reconstructive Orthopaedic Surgery; Admitting Provider Family Medicine; Emergency Provider Emergency Medicine; PCP Family Medicine; Referring Provider Emergency Medicine; Visit Provider Family Medicine
PROC: 0SRR0JZ Replacement of Right Hip Joint, Femoral Surface with Synthetic Substitute, Open Approach (ICD-10-PCS; CPT 27125; principal; 2023-08-10 07:45)
DX: S72.001A Fracture of unspecified part of neck of right femur, initial encounter for closed fracture (principal); S42.201A Unspecified fracture of upper end of right humerus, initial encounter for closed fracture; D62 Acute posthemorrhagic anemia; E03.9 Hypothyroidism, unspecified; E78.5 Hyperlipidemia, unspecified; I48.91 Unspecified atrial fibrillation; Z66 Do not resuscitate; W01.0XXA Fall on same level from slipping, tripping and stumbling without subsequent striking against object, initial encounter
CPT/HCPCS: 36415; 51798; 70450; 71045; 73030; 73060; 73502; 76000; 80053; 85014; 85018; 85025; 85027; 85610; 85730; 86850; 86900; 86901; 93005; 93010; 93306; 96374; 97110; 97163; 97530; 99284; 99285; C1776; J0171; J0690; J1100; J1650; J2270; J2405; J2704; J3010

== ENCOUNTER → 2023-08-30 15:14 | Outpatient (CLI) | payer MEDICARE, OTHER, SELFPAY ==
[2023-08-08 23:38] VITALS: BMI 20.3
--- NOTE | 2023-08-30 | DI.US.S_ITS ---
PROCEDURE: US PERIPH VENOUS UP EXTREM RT INDICATIONS: Acute embolism and thrombosis of deep veins of right upper e TECHNIQUE: Real-time imaging, as well as color and pulse Doppler interrogation, was performed of the right upper extremity deep veins from the inferior neck to the antecubital fossa. COMPARISON: [facility], CR, XR SHOULDER 2+ VIEWS RIGHT, 08/24/2023, 9:03. FINDINGS: The internal jugular vein, visualized portions of the subclavian vein, axillary, and brachial veins are free of intraluminal thrombus. Where physically possible, the veins are normally compressible. Color and pulse Doppler demonstrate normal intraluminal flow, with expected phasicity and pulsatility. Additional scanning of the cephalic and basilic veins of the superficial system demonstrates normal compressibility, without thrombus. Examination is limited secondary to patient immobility and pain. IMPRESSION: Limited study demonstrating no findings of upper extremity deep venous thrombosis. Dictated by: Kp Sandoval M.D. on 08/30/2023 at 15:24 Approved by: Kp Sandoval M.D. on 08/30/2023 at 15:25
== END ==
PROVIDERS: PCP Family Medicine; Referring Provider Nurse Practitioner Family; Visit Provider Nurse Practitioner Family
DX: I82.621 Acute embolism and thrombosis of deep veins of right upper extremity (principal)
CPT/HCPCS: 93971

== ENCOUNTER 2024-04-10 14:30 | Outpatient (RCR) | payer MEDICARE, OTHER, SELFPAY ==
[2023-08-08 23:38] VITALS: BMI 20.3
--- NOTE | 2023-12-26 16:55 | PT.OIE ---
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) History of thoracentesis Hx of dilation and curettage Hx of endarterectomy (02/19/08) Visit Care Team Role Provider Type Rojas Rose MD Family Provider Physician Primary Care Provider Specialty: Family [facility] Address: [address] [place] [address], [id number] Email: [email or web address] Bebo Garcia MD Attending Provider Physician Referring Provider Specialty: Orthopedics Orthopedic Surgery Address: [address] [place] [address], [id number] Email: [email or web address] [facility] Initial Evaluation PT-OP-A Visit Information Start: 12/26/23 08:06 Freq: Status: Active Protocol: Document 12/26/23 08:14 [facility] (Rec: 12/26/23 08:38 [facility] [id number]) Out-Patient Physical Therapy Visit Information Visit Information Visit Type Initial Evaluation Visit Start Time 08:15 Visit Stop Time 09:45 Visit Number 1 Precautions Precautions 10 lb weight lifting restriction osteoporosis peripheral neuropathy history large b-cell lymphoma spleen 2018; s/p splenectomy and chemo PT-OP-B Current Condition Start: 12/26/23 08:06 Freq: Status: Active Protocol: Document 12/26/23 08:14 [facility] (Rec: 12/26/23 08:38 [facility] [id number]) Current Condition History of Current Condition Onset Date 08/08/23 Current Complaints bilateral LE swelling. History of Current Condition Fell while shopping 08/08/23 fractured right hip and right humerus. Underwent partial anterior REBECA. Was in inpatient rehab, then [facility]. [facility] Using a walker for mobility. REports swelling in feet and legs which makes balance lindsay difficulty; [facility] Initially legs looked like tree trunks. Has improved some with elevating LE's, has been wearing compression socks at least every other day but reports indentations in legs from stockings, walking 1/2 hr in house with music, and doing other exercise. Currently Prior Treatments and Tests partial right REEBCA Treatment Goals Patient/Caregiver Goals decrease cathleen LE swelling to improve balance and mobility Current Functional Impairments (Reported) Functional Limitations- ADL's slow Functional Limitations- Mobility/Gait uses 4WW Functional Limitations- Recreation/ unable to go back to pool so Hobbies fac for water aeorobics PT-OP-C Subjective Start: 12/26/23 08:06 Freq: Status: Active Protocol: Document 12/26/23 08:15 [facility] (Rec: 12/26/23 16:55 [facility] [id number]) Patient Questionnaires Lymphedema Life Impact Score Lymphedema Score 21 PT-OP-G Mobility & Gait Start: 12/26/23 08:07 Freq: Status: Active Protocol: Document 12/26/23 08:14 [facility] (Rec: 12/26/23 09:32 [facility] [id number]) OP Gait Assessment Gait Gait Assistance Required: Independent Assistive Devices Assistive Device 4 Wheeled Walker PT-OP-J Posture/Palpation/Skin Start: 12/26/23 08:06 Freq: Status: Active Protocol: Document 12/26/23 08:14 [facility] (Rec: 12/26/23 09:32 [facility] [id number]) Skin Assessment Edema Assessment cathleen LE's Edema Degree 2+ PT-OP-K Range of Motion Start: 12/26/23 08:06 Freq: Status: Active Protocol: Document 12/26/23 08:14 [facility] (Rec: 12/26/23 09:32 [facility] [id number]) Lumbar Spine Range of Motion Lumbar Spine Active Comments mod dec due to osteoporosis, tightness Hip Goniometric Range of Motion Hip Right Active Hip ROM WFL Yes Left Active Hip ROM WFL Yes Knee Goniometric Range of Motion Knee cathleen Knee ROM WFL Yes Ankle and Foot Goniometric Range of Motion Ankle and Foot cathleen Ankle/Foot ROM WFL No Dorsiflexion with Knee Flexed 5 Dorsiflexion with Knee Extended 0 PT-OP-N Lymphedema Start: 12/26/23 08:39 Freq: Status: Active Protocol: Document 12/26/23 08:14 [facility] (Rec: 12/26/23 09:32 [facility] [id number]) Lymphedema Measurements Lower Extremity Circumference Measurements Right MT Heads 21.7 cm Mid-foot 20.5 cm Medial Malleolus 23.3 cm 10 cm From Medial Malleolus 22.7 cm 20 cm From Medial Malleolus 28.3 cm 30 cm From Medial Malleolus 32.5 cm 40 cm From Medial Malleolus 37.4 cm 50 cm From Medial Malleolus 39.8 cm 60 cm From Medial Malleolus 38.8 cm 70 cm From Medial Malleolus 40.4 cm Knee Joint 39.8 cm Hip 56.3 cm left MT Heads 21.6 cm Mid-foot 21.8 cm Medial Malleolus 24.3 cm 10 cm From Medial Malleolus 25.8 cm 20 cm From Medial Malleolus 30.7 cm 30 cm From Medial Malleolus 33.9 cm 40 cm From Medial Malleolus 37.3 cm 50 cm From Medial Malleolus 39.5 cm 60 cm From Medial Malleolus 41.3 cm 70 cm From Medial Malleolus 42.4 cm Knee Joint 37.3 cm Hip 56.7 cm PT-OP-Q Treatments Start: 12/26/23 08:06 Freq: Status: Active Protocol: Document 12/26/23 08:14 [facility] (Rec: 12/26/23 10:16 [facility] [id number]) Lymphedema Treatment Manual Lymphatic Drainage Location for cathleen LE lymphedema Duration 30 Lymphedema Wrapping Materials Tubigrip size F Other applied with good fit but with education to obtain thigh high 15-20 mm Hg compression stockings for gradient pressure but inc ease of donning Compression Garment Assessment Compression Garment Assessment Details patient did not bring Patient Education Lymphedema Pathology instructed Lymphedema Prevention instructed Lymphedema Precautions instrsucted Compression Garments discussed options Self Manual Lymphatic Drainage instructed and issued written HO Sequential Lymphedema Exercises instructed nad issued written HO PT-OP-T Assessment and Plan Start: 12/26/23 08:06 Freq: Status: Active Protocol: Document 12/26/23 08:14 [facility] (Rec: 12/26/23 08:38 [facility] [id number]) Physical Therapy Assessment Rehab Potential Rehabilitation Potential Good Evaluation Complexity Number of Personal Factors/Comorbidities 1-2 Number of Body Systems Impaired 3 Clinical Presentation at Evaluation Evolving Impairments Impairments Edema,Soft Tissue Mobility Goals 2 Impairment lymphedema life impact scale 21% Welt Cutter Goal (LTG) Decrease lymphedema life impact scale to no greater than 5% as measure of improved knowledge of and ability to self manage her lymphedema. LTG Duration 03/24/24 1 Impairment lymphedema cathleen LE's Short Term Goal (STG) Patient will be instructed in all aspects of lymphedema self -care to include skin care, elevation, self-massage, self- bandaging/compression options, and lymphedema exercises. STG Duration 01/23/24 Correction Goal (LTG) Decrease patient?s lymphedema to a stable level (no increase or decrease greater than 1 cm over the course of 1 week), patient to be independent with all aspects of self-care for lymphedema, and will obtain appropriate compression garment for lymphedema management in the home. LTG Duration 02/23/24 Assessment Summary Assessment Patient presents to PT with function-limiting lymphedema in her cathleen LE's s/p right hip fracture treated with partial anterior REBECA and right humeral fracture. These have resulted in decreased mobility and activity level with resulting lymphedema cathleen LE's right greater than left. Patient is at risk for complications of lymphedema including cellulitis if this is not treated and patient taught to self-manage. Donning and doffing compression garments is challenging for her and at this time she continues rehab for her right shoulder and has a 10 lb weight restriction. Patient education and lymphatic massage was started today. Feel she will not be able to perform lymphatic bandaging due to physical limitations. We discussed importance of compression and PT recommendation for lower compression level thigh high stocking balanced with increased emphasis on her manual lymphatic drainage, exercise, and elevation. She is highly motivated. Plan of care was discussed and she is in agreement. Physical Therapy Plan Frequency and Duration Frequency of Treatment 2x/Week Duration of treatment (weeks) 8 Plan of Care Start Date 12/26/23 Plan of Care End Date 02/24/24 Therapeutic Interventions Therapeutic Interventions Home Exercise Program, Lymphedema Management,Manual Therapy,Patient/Caregiver Education,Self-Care/Home Management,Soft Tissue Mobilization,Taping, Therapeutic Activities, Therapeutic Exercises Modalities Vasopneumatic Devices Next Visit Focus/Plan Next Note Type Treatment Note Next Visit Plan Continue manual lymphatic drainage, evaluate fit of any compression stockings obtained by patient and educate on donning and doffing, sequential lymphedema exercises and self massage
--- NOTE | 2023-12-26 16:55 | PT.OPPOC ---
Physical, Occupational & Speech Therapy At [facility] Current Diagnoses Lymphedema, not elsewhere classified (12/26/23) Visit Care Team Role Provider Type Rojas Rose MD Family Provider Physician Primary Care Provider Specialty: Family Practice Address: [address] [place] [address], [facility] [place], [address] Email: [email or web address] Bebo Garcia MD Attending Provider Physician Referring Provider Specialty: Orthopedics Orthopedic Surgery Address: [address] [place] [address], [address] Email: [email or web address] Plan Of Care PT-OP-T Assessment and Plan Start: 12/26/23 08:06 Freq: Status: Active Protocol: Document 12/26/23 08:14 [facility] (Rec: 12/26/23 08:38 [facility] [id number]) Physical Therapy Assessment Rehab Potential Rehabilitation Potential Good Evaluation Complexity Number of Personal Factors/Comorbidities 1-2 Number of Body Systems Impaired 3 Clinical Presentation at Evaluation Evolving Impairments Impairments Edema,Soft Tissue Mobility Goals 2 Impairment lymphedema life impact scale 21% Long-Term Goal (LTG) Decrease lymphedema life impact scale to no greater than 5% as measure of improved knowledge of and ability to self manage her lymphedema. LTG Duration 03/24/24 1 Impairment lymphedema cathleen LE's Short Term Goal (STG) Patient will be instructed in all aspects of lymphedema self -care to include skin care, elevation, self-massage, self- bandaging/compression options, and lymphedema exercises. STG Duration 01/23/24 Long-Term Goal (LTG) Decrease patient?s lymphedema to a stable level (no increase or decrease greater than 1 cm over the course of 1 week), patient to be independent with all aspects of self-care for lymphedema, and will obtain appropriate compression garment for lymphedema management in the home. LTG Duration 02/23/24 Assessment Summary Assessment Patient presents to PT with function-limiting lymphedema in her cathleen LE's s/p right hip fracture treated with partial anterior REBECA and right humeral fracture. These have resulted in decreased mobility and activity level with resulting lymphedema cathleen LE's right greater than left. Patient is at risk for complications of lymphedema including cellulitis if this is not treated and patient taught to self-manage. Donning and doffing compression garments is challenging for her and at this time she continues rehab for her right shoulder and has a 10 lb weight restriction. Patient education and lymphatic massage was started today. Feel she will not be able to perform lymphatic bandaging due to physical limitations. We discussed importance of compression and PT recommendation for lower compression level thigh high stocking balanced with increased emphasis on her manual lymphatic drainage, exercise, and elevation. She is highly motivated. Plan of care was discussed and she is in agreement. Physical Therapy Plan Frequency and Duration Frequency of Treatment 2x/Week Duration of treatment (weeks) 8 Plan of Care Start Date 12/26/23 Plan of Care End Date 02/24/24 Therapeutic Interventions Therapeutic Interventions Home Exercise Program, Lymphedema Management,Manual Therapy,Patient/Caregiver Education,Self-Care/Home Management,Soft Tissue Mobilization,Taping, Therapeutic Activities, Therapeutic Exercises Modalities Vasopneumatic Devices Next Visit Focus/Plan Next Note Type Treatment Note Next Visit Plan Continue manual lymphatic drainage, evaluate fit of any compression stockings obtained by patient and educate on donning and doffing, sequential lymphedema exercises and self massage Plan of Care Dates Plan of Care Start Date 12/26/23 Plan of Care End Date 02/24/24 Electronically Signed by: Elaine Pierre, PT 12/26/23 1045 If you are in agreement with this Plan of Care, please return a signed and dated copy. I have reviewed this Plan of Care and certify that the skilled therapy services above are required to meet the patient?s needs. Physician Signature Date Printed Name and Credentials Clinical Instructor Signature Printed Name and Credentials
--- NOTE | 2023-12-31 12:11 | PT.OTN ---
Current Diagnoses Lymphedema, not elsewhere classified (12/31/23) Physical Therapy Treatment Note PT-OP-A Visit Information Start: 12/26/23 08:06 Freq: Status: Active Protocol: Document 12/31/23 08:55 [facility] (Rec: 12/31/23 09:28 [facility] [id number]) Out-Patient Physical Therapy Visit Information Visit Information Visit Type Treatment Note Visit Start Time 09:00 Visit Stop Time 10:30 Visit Number 2 Evaluation Information Evaluation Date 01/24/24 Precautions Precautions 10 lb weight lifting restriction osteoporosis peripheral neuropathy history large b-cell lymphoma spleen 2018; s/p splenectomy and chemo PT-OP-B Current Condition Start: 12/26/23 08:06 Freq: Status: Active Protocol: Document 12/31/23 08:55 [facility] (Rec: 12/31/23 09:28 [facility] [id number]) Current Condition History of Current Condition Onset Date 08/08/23 Current Complaints bilateral LE swelling. History of Current Condition Fell while shopping 08/08/23 fractured right hip and right humerus. Underwent partial anterior REBECA. Was in inpatient rehab, then [facility]. [facility] Using a walker for mobility. REports swelling in feet and legs which makes balance lindsay difficulty; [facility] legs looked like tree trunks. Has improved some with elevating LE's, has been wearing compression socks at least every other day but reports indentations in legs from stockings, walking 1/2 hr in house with music, and doing other exercise. Currently Prior Treatments and Tests partial right REBECA Treatment Goals Patient/Caregiver Goals decrease cathleen LE swelling to improve balance and mobility PT-OP-C Subjective Start: 12/26/23 08:06 Freq: Status: Active Protocol: Document 12/31/23 08:55 [facility] (Rec: 12/31/23 09:28 [facility] [id number]) OP-PT Subjective Patient Comments Patient Comments Wore Tubigrip all weekend, has friend taking her to [facility] for fitting with compression stockings. Concerned about being able to don and doff. PT-OP-G Mobility & Gait Start: 12/26/23 08:07 Freq: Status: Active Protocol: Document 12/26/23 08:14 [facility] (Rec: 12/26/23 09:32 [facility] [id number]) OP Gait Assessment Gait Gait Assistance Required: Independent Assistive Devices Assistive Device 4 Wheeled Walker PT-OP-J Posture/Palpation/Skin Start: 12/26/23 08:06 Freq: Status: Active Protocol: Document 12/26/23 08:14 [facility] (Rec: 12/26/23 09:32 [facility] [id number]) Skin Assessment Edema Assessment cathleen LE's Edema Degree 2+ PT-OP-K Range of Motion Start: 12/26/23 08:06 Freq: Status: Active Protocol: Document 12/26/23 08:14 [facility] (Rec: 12/26/23 09:32 [facility] [id number]) Lumbar Spine Range of Motion Lumbar Spine Active Comments mod dec due to osteoporosis, tightness Hip Goniometric Range of Motion Hip Right Active Hip ROM WFL Yes Left Active Hip ROM WFL Yes Knee Goniometric Range of Motion Knee cathleen Knee ROM WFL Yes Ankle and Foot Goniometric Range of Motion Ankle and Foot cathleen Ankle/Foot ROM WFL No Dorsiflexion with Knee Flexed 5 Dorsiflexion with Knee Extended 0 PT-OP-N Lymphedema Start: 12/26/23 08:39 Freq: Status: Active Protocol: Document 12/31/23 08:55 [facility] (Rec: 12/31/23 09:28 [facility] [id number]) Lymphedema Measurements Lower Extremity Circumference Measurements Right MT Heads 20.8 cm Mid-foot 20.2 cm Medial Malleolus 23.8 cm 10 cm From Medial Malleolus 21 cm 20 cm From Medial Malleolus 27.5 cm 30 cm From Medial Malleolus 32.6 cm 40 cm From Medial Malleolus 37.8 cm 50 cm From Medial Malleolus 38.7 cm 60 cm From Medial Malleolus 41.1 cm 70 cm From Medial Malleolus 46.8 cm Knee Joint 37.8 cm Hip 56 cm left MT Heads 21.8 cm Mid-foot 21.9 cm Medial Malleolus 23.4 cm 10 cm From Medial Malleolus 23.2 cm 20 cm From Medial Malleolus 29.8 cm 30 cm From Medial Malleolus 33.3 cm 40 cm From Medial Malleolus 37.2 cm 50 cm From Medial Malleolus 39.4 cm 60 cm From Medial Malleolus 42.8 cm 70 cm From Medial Malleolus 49.2 cm Knee Joint 37.2 cm PT-OP-Q Treatments Start: 12/26/23 08:06 Freq: Status: Active Protocol: Document 12/31/23 08:55 [facility] (Rec: 12/31/23 09:28 [facility] [id number]) Lymphedema Treatment Manual Lymphatic Drainage Location for cathleen LE lymphedema Duration 45 Comments patient instructed in self massage Lymphedema Wrapping Materials Tubigrip size F Sequential Lymphedema Exercises Location cathleen TAYLOR's Compression Garment Assessment Compression Garment Assessment Details worked on donning and doffing using foster, and also shown slippe type donning aid, recommendation by PT to get lower than 15-20 mm Hg stockings if doesn't appear she will be able to don those; to discuss with certified fitter today. Patient Education Compression Garments discussed further as above Self Manual Lymphatic Drainage reviewed Sequential Lymphedema Exercises reviewed PT-OP-T Assessment and Plan Start: 12/26/23 08:06 Freq: Status: Active Protocol: Document 12/31/23 08:55 [facility] (Rec: 12/31/23 09:28 [facility] [id number]) Physical Therapy Assessment Impairments Impairments Edema,Soft Tissue Mobility Goals 2 Impairment lymphedema life impact scale 21% Wire Wheeler Goal (LTG) Decrease lymphedema life impact scale to no greater than 5% as measure of improved knowledge of and ability to self manage her lymphedema. LTG Duration 03/24/24 1 Impairment lymphedema cathleen TAYLOR's Short Term Goal (STG) Patient will be instructed in all aspects of lymphedema self -care to include skin care, elevation, self-massage, self- bandaging/compression options, and lymphedema exercises. STG Duration 01/23/24 Wire Wheeler Goal (LTG) Decrease patient?s lymphedema to a stable level (no increase or decrease greater than 1 cm over the course of 1 week), patient to be independent with all aspects of self-care for lymphedema, and will obtain appropriate compression garment for lymphedema management in the home. LTG Duration 02/23/24 Assessment Summary Assessment Patient circumferential measurements decreased distally, increased proximal to knee; discussed that is reason she needs thigh high. Patient instructed in options for donning aids and PT recommendation for 15-20 mm Hg stockings but less pressure if not able to don and doff. She was able to use foster aid to don knee high socks today but was unable to doff ( compression level not indicated on socks) Shown slippee type as well; to discuss with fitter today. Physical Therapy Plan Frequency and Duration Frequency of Treatment 2x/Week Duration of treatment (weeks) 8 Plan of Care Start Date 12/26/23 Plan of Care End Date 02/24/24 Therapeutic Interventions Therapeutic Interventions Home Exercise Program, Lymphedema Management,Manual Therapy,Patient/Caregiver Education,Self-Care/Home Management,Soft Tissue Mobilization,Taping, Therapeutic Activities, Therapeutic Exercises Modalities Vasopneumatic Devices Next Visit Focus/Plan Next Note Type Treatment Note Next Visit Plan Continue CDT.
--- NOTE | 2024-01-03 16:29 | PT.OTN ---
Current Diagnoses Lymphedema, not elsewhere classified (01/03/24) Physical Therapy Treatment Note PT-OP-A Visit Information Start: 12/26/23 08:06 Freq: Status: Active Protocol: Document 01/03/24 12:57 SAK (Rec: 01/03/24 14:15 [facility] [id number]) Out-Patient Physical Therapy Visit Information Visit Information Visit Type Treatment Note Visit Start Time 12:57 Visit Stop Time 14:30 Visit Number 3 Evaluation Information Evaluation Date 01/24/24 Precautions Precautions 10 lb weight lifting restriction osteoporosis peripheral neuropathy history large b-cell lymphoma spleen 2018; s/p splenectomy and chemo PT-OP-B Current Condition Start: 12/26/23 08:06 Freq: Status: Active Protocol: Document 01/03/24 12:57 SAK (Rec: 01/03/24 14:15 [facility] [id number]) Current Condition History of Current Condition Onset Date 08/08/23 Current Complaints bilateral LE swelling. History of Current Condition Fell while shopping 08/08/23 fractured right hip and right humerus. Underwent partial anterior REBECA. Was in inpatient rehab, then [facility] Using [facility] walker for [facility]. REports swelling in feet and legs which makes balance lindsay difficulty; [facility] Initially legs looked like tree trunks. Has improved some with elevating LE's, has been wearing compression socks at least every other day but reports indentations in legs from stockings, walking 1/2 hr in house with music, and doing other exercise. Currently Prior Treatments and Tests partial right REBECA Treatment Goals Patient/Caregiver Goals decrease cathleen LE swelling to improve balance and mobility PT-OP-C Subjective Start: 12/26/23 08:06 Freq: Status: Active Protocol: Document 01/03/24 12:57 SAK (Rec: 01/03/24 14:15 [facility] [id number]) OP-PT Subjective Patient Comments Patient Comments WEnt to see [facility], not sure about Medicare coverage, encouraged potential ordering compression from [employer], took measurements. PT-OP-G Mobility & Gait Start: 12/26/23 08:07 Freq: Status: Active Protocol: Document 12/26/23 08:14 SAK (Rec: 12/26/23 09:32 SAK [id number]) OP Gait Assessment Gait Gait Assistance Required: Independent Assistive Devices Assistive Device 4 Wheeled Walker PT-OP-J Posture/Palpation/Skin Start: 12/26/23 08:06 Freq: Status: Active Protocol: Document 12/26/23 08:14 [facility] (Rec: 12/26/23 09:32 [facility] [id number]) Skin Assessment Edema Assessment cathleen LE's Edema Degree 2+ PT-OP-K Range of Motion Start: 12/26/23 08:06 Freq: Status: Active Protocol: Document 12/26/23 08:14 [facility] (Rec: 12/26/23 09:32 [facility] [id number]) Lumbar Spine Range of Motion Lumbar Spine Active Comments mod dec due to osteoporosis, tightness Hip Goniometric Range of Motion Hip Right Active Hip ROM WFL Yes Left Active Hip ROM WFL Yes Knee Goniometric Range of Motion Knee cathleen Knee ROM WFL Yes Ankle and Foot Goniometric Range of Motion Ankle and Foot cathleen Ankle/Foot ROM WFL No Dorsiflexion with Knee Flexed 5 Dorsiflexion with Knee Extended 0 PT-OP-N Lymphedema Start: 12/26/23 08:39 Freq: Status: Active Protocol: Document 01/03/24 12:57 [facility] (Rec: 01/03/24 14:15 [facility] [id number]) Lymphedema Measurements Lower Extremity Circumference Measurements Right MT Heads 20.6 cm Mid-foot 19.6 cm Medial Malleolus 23.5 cm 10 cm From Medial Malleolus 20.7 cm 20 cm From Medial Malleolus 27.8 cm 30 cm From Medial Malleolus 33 cm 40 cm From Medial Malleolus 37 cm 50 cm From Medial Malleolus 38.7 cm 60 cm From Medial Malleolus 41.8 cm 70 cm From Medial Malleolus 47.7 cm Knee Joint 38.5 cm Hip 60 cm left MT Heads 21.6 cm Mid-foot 21.2 cm Medial Malleolus 24 cm 10 cm From Medial Malleolus 21.8 cm 20 cm From Medial Malleolus 28.7 cm 30 cm From Medial Malleolus 32.9 cm 40 cm From Medial Malleolus 37.7 cm 50 cm From Medial Malleolus 39.4 cm 60 cm From Medial Malleolus 43.1 cm 70 cm From Medial Malleolus 49.8 cm Knee Joint 39.5 cm Hip 56.8 cm PT-OP-Q Treatments Start: 12/26/23 08:06 Freq: Status: Active Protocol: Document 01/03/24 12:57 [facility] (Rec: 01/03/24 16:28 SAK [id number]) Lymphedema Treatment Manual Lymphatic Drainage Location for cathleen LE lymphedema Duration 45 Comments patient instructed in self massage Lymphedema Wrapping Materials Tubigrip size F applied cathleen CLAUDIA 's Sequential Lymphedema Exercises Location cathleen LE's Patient Education Other explored further options for compression garments online with patient, recommend [employer] soft thigh high 15-20 mm Hg pressure. PT-OP-T Assessment and Plan Start: 12/26/23 08:06 Freq: Status: Active Protocol: Document 01/03/24 12:57 [facility] (Rec: 01/03/24 14:15 [facility] [id number]) Physical Therapy Assessment Impairments Impairments Edema,Soft Tissue Mobility Goals 2 Impairment lymphedema life impact scale 21% Glove Pairer Goal (LTG) Decrease lymphedema life impact scale to no greater than 5% as measure of improved knowledge of and ability to self manage her lymphedema. LTG Duration 03/24/24 1 Impairment lymphedema cathleen LE's Short Term Goal (STG) Patient will be instructed in all aspects of lymphedema self -care to include skin care, elevation, self-massage, self- bandaging/compression options, and lymphedema exercises. STG Duration 01/23/24 Shelter Goal (LTG) Decrease patient?s lymphedema to a stable level (no increase or decrease greater than 1 cm over the course of 1 week), patient to be independent with all aspects of self-care for lymphedema, and will obtain appropriate compression garment for lymphedema management in the home. LTG Duration 02/23/24 Progress Towards Goals Progress Towards Goals Progressing Toward Goals Assessment Summary Assessment Improved circumferential measurements cathleen lower legs, some inc in knees and upper legs; rationale for obtaining thigh high. Further discussion and online exploration of compression with patient with information given regarding compression level recommended 15-20 mm Hg, silicone at top, closed toe. Patient to order. Good compliance to all aspects of lymphedema care at home, using long handled brush for hard to reach areas. Physical Therapy Plan Frequency and Duration Frequency of Treatment 2x/Week Duration of treatment (weeks) 8 Plan of Care Start Date 12/26/23 Plan of Care End Date 02/24/24 Therapeutic Interventions Therapeutic Interventions Home Exercise Program, Lymphedema Management,Manual Therapy,Patient/Caregiver Education,Self-Care/Home Management,Soft Tissue Mobilization,Taping, Therapeutic Activities, Therapeutic Exercises Modalities Vasopneumatic Devices Next Visit Focus/Plan Next Note Type Treatment Note Next Visit Plan Continue CDT. Patient to order thigh high compression stockings that are returnable if don't work.
--- NOTE | 2024-01-16 11:59 | PT.OTN ---
Current Diagnoses Lymphedema, not elsewhere classified (01/16/24) Physical Therapy Treatment Note PT-OP-A Visit Information Start: 12/26/23 08:06 Freq: Status: Active Protocol: Document 01/16/24 10:33 SAK (Rec: 01/16/24 11:59 [facility] [id number]) Out-Patient Physical Therapy Visit Information Visit Information Visit Type Treatment Note Visit Start Time 10:34 Visit Number 4 Evaluation Information Evaluation Date 01/24/24 Precautions Precautions 10 lb weight lifting restriction osteoporosis peripheral neuropathy history large b-cell lymphoma spleen 2018; s/p splenectomy and chemo PT-OP-B Current Condition Start: 12/26/23 08:06 Freq: Status: Active Protocol: Document 01/16/24 10:33 SAK (Rec: 01/16/24 11:59 [facility] [id number]) Current Condition History of Current Condition Onset Date 08/08/23 Current Complaints bilateral LE swelling. History of Current Condition Fell while shopping 08/08/23 fractured right hip and right humerus. Underwent partial anterior REBECA. Was in inpatient rehab, then home with home health PT[facility] Using a walker for mobility. REports swelling in feet and legs which makes balance lindsay difficulty; [facility] legs looked like tree trunks. Has improved some with elevating LE's, has been wearing compression socks at least every other day but reports indentations in legs from stockings, walking 1/2 hr in house with music, and doing other exercise. Currently Prior Treatments and Tests partial right REBECA Treatment Goals Patient/Caregiver Goals decrease cathleen LE swelling to improve balance and mobility PT-OP-C Subjective Start: 12/26/23 08:06 Freq: Status: Active Protocol: Document 01/16/24 10:33 SAK (Rec: 01/16/24 11:59 [facility] [id number]) OP-PT Subjective Patient Comments Patient Comments Still wearing Tubigrip because not sure ordered stockings are correct. PT-OP-G Mobility & Gait Start: 12/26/23 08:07 Freq: Status: Active Protocol: Document 12/26/23 08:14 SAK (Rec: 12/26/23 09:32 SAK [id number]) OP Gait Assessment Gait Gait Assistance Required: Independent Assistive Devices Assistive Device 4 Wheeled Walker PT-OP-J Posture/Palpation/Skin Start: 12/26/23 08:06 Freq: Status: Active Protocol: Document 12/26/23 08:14 SAK (Rec: 12/26/23 09:32 [facility] [id number]) Skin Assessment Edema Assessment cathleen LE's Edema Degree 2+ PT-OP-K Range of Motion Start: 12/26/23 08:06 Freq: Status: Active Protocol: Document 12/26/23 08:14 SAK (Rec: 12/26/23 09:32 [facility] [id number]) Lumbar Spine Range of Motion Lumbar Spine Active Comments mod dec due to osteoporosis, tightness Hip Goniometric Range of Motion Hip Right Active Hip ROM WFL Yes Left Active Hip ROM WFL Yes Knee Goniometric Range of Motion Knee cathleen Knee ROM WFL Yes Ankle and Foot Goniometric Range of Motion Ankle and Foot cathleen Ankle/Foot ROM WFL No Dorsiflexion with Knee Flexed 5 Dorsiflexion with Knee Extended 0 PT-OP-N Lymphedema Start: 12/26/23 08:39 Freq: Status: Active Protocol: Document 01/16/24 10:33 SAK (Rec: 01/16/24 11:59 [facility] [id number]) Lymphedema Measurements Lower Extremity Circumference Measurements Right MT Heads 21.5 cm Mid-foot 20.5 cm Medial Malleolus 23.8 cm 10 cm From Medial Malleolus 22.1 cm 20 cm From Medial Malleolus 27.8 cm 30 cm From Medial Malleolus 33 cm 40 cm From Medial Malleolus 37.9 cm 50 cm From Medial Malleolus 39.8 cm 60 cm From Medial Malleolus 42.3 cm 70 cm From Medial Malleolus 50.4 cm Knee Joint 40 cm Hip 60.3 cm left MT Heads 22.3 cm Mid-foot 21.7 cm Medial Malleolus 25 cm 10 cm From Medial Malleolus 24.3 cm 20 cm From Medial Malleolus 29.6 cm 30 cm From Medial Malleolus 34.3 cm 40 cm From Medial Malleolus 37.9 cm 50 cm From Medial Malleolus 39.5 cm 60 cm From Medial Malleolus 43 cm 70 cm From Medial Malleolus 48.8 cm Knee Joint 40.7 cm PT-OP-Q Treatments Start: 12/26/23 08:06 Freq: Status: Active Protocol: Document 01/16/24 10:33 SAK (Rec: 01/16/24 11:59 [facility] [id number]) Lymphedema Treatment Manual Lymphatic Drainage Location for cathleen LE lymphedema Duration 45 Comments patient instructed in self massage Lymphedema Wrapping Materials Tubigrip size F applied cathleen LE 's Sequential Lymphedema Exercises Location cathleen LE's Compression Garment Assessment Compression Garment Assessment Details wrong size and compression level obtained. Patient to go to [facility] for fitting due to online ordering difficulty. PT-OP-T Assessment and Plan Start: 12/26/23 08:06 Freq: Status: Active Protocol: Document 01/16/24 10:33 [facility] (Rec: 01/16/24 11:59 [facility] [id number]) Physical Therapy Assessment Impairments Impairments Edema,Soft Tissue Mobility Goals 2 Impairment lymphedema life impact scale 21% Custodial Goal (LTG) Decrease lymphedema life impact scale to no greater than 5% as measure of improved knowledge of and ability to self manage her lymphedema. LTG Duration 03/24/24 1 Impairment lymphedema cathleen LE's Short Term Goal (STG) Patient will be instructed in all aspects of lymphedema self -care to include skin care, elevation, self-massage, self- bandaging/compression options, and lymphedema exercises. STG Duration 01/23/24 [employer] Install[employer] Helper Goal (LTG) Decrease patient?s lymphedema to a stable level (no increase or decrease greater than 1 cm over the course of 1 week), patient to be independent with all aspects of self-care for lymphedema, and will obtain appropriate compression garment for lymphedema management in the home. LTG Duration 02/23/24 Assessment Summary Assessment wrong size and compression level obtained for stockings. Patient to go to [facility] for fitting due to online ordering difficulty. Circumferential measurements variable. She is highly compliant to self care for lymphedema as instructed. Physical Therapy Plan Frequency and Duration Frequency of Treatment 2x/Week Duration of treatment (weeks) 8 Plan of Care Start Date 12/26/23 Plan of Care End Date 02/24/24 Therapeutic Interventions Therapeutic Interventions Home Exercise Program, Lymphedema Management,Manual Therapy,Patient/Caregiver Education,Self-Care/Home Management,Soft Tissue Mobilization,Taping, Therapeutic Activities, Therapeutic Exercises Modalities Vasopneumatic Devices Next Visit Focus/Plan Next Note Type Treatment Note Next Visit Plan Continue CDT.
--- NOTE | 2024-01-17 14:14 | PT.OTN ---
Current Diagnoses Lymphedema, not elsewhere classified (01/17/24) Physical Therapy Treatment Note PT-OP-A Visit Information Start: 12/26/23 08:06 Freq: Status: Active Protocol: Document 01/17/24 13:00 SAK (Rec: 01/17/24 13:18 [facility] [id number]) Out-Patient Physical Therapy Visit Information Visit Information Visit Type Treatment Note Visit Start Time 13:01 Evaluation Information Evaluation Date 01/24/24 Precautions Precautions 10 lb weight lifting restriction osteoporosis peripheral neuropathy history large b-cell lymphoma spleen 2018; s/p splenectomy and chemo PT-OP-B Current Condition Start: 12/26/23 08:06 Freq: Status: Active Protocol: Document 01/17/24 13:00 SAK (Rec: 01/17/24 13:18 [facility] [id number]) Current Condition History of Current Condition Onset Date 08/08/23 Current Complaints bilateral LE swelling. History of Current Condition Fell while shopping 08/08/23 fractured right hip and right humerus. Underwent partial anterior REBECA. Was in inpatient rehab, then home with home health PT. [facility] Using a walker for mobility. REports swelling in feet and legs which makes balance lindsay difficulty; [facility] Initially legs looked like tree trunks. Has improved some with elevating LE's, has been wearing compression socks at least every other day but reports indentations in legs from stockings, walking 1/2 hr in house with music, and doing other exercise. Currently Prior Treatments and Tests partial right REBECA Treatment Goals Patient/Caregiver Goals decrease cathleen LE swelling to improve balance and mobility PT-OP-C Subjective Start: 12/26/23 08:06 Freq: Status: Active Protocol: Document 01/17/24 13:00 SAK (Rec: 01/17/24 13:18 SAK [id number]) OP-PT Subjective Patient Comments Patient Comments ordered new compression stockings through [facility]; lower compression level to start with (10-15), increase as needed. PT-OP-G Mobility & Gait Start: 12/26/23 08:07 Freq: Status: Active Protocol: Document 12/26/23 08:14 SAK (Rec: 12/26/23 09:32 SAK [id number]) OP Gait Assessment Gait Gait Assistance Required: Independent Assistive Devices Assistive Device 4 Wheeled Walker PT-OP-J Posture/Palpation/Skin Start: 12/26/23 08:06 Freq: Status: Active Protocol: Document 12/26/23 08:14 [facility] (Rec: 12/26/23 09:32 [facility] [id number]) Skin Assessment Edema Assessment cathleen LE's Edema Degree 2+ PT-OP-K Range of Motion Start: 12/26/23 08:06 Freq: Status: Active Protocol: Document 12/26/23 08:14 [facility] (Rec: 12/26/23 09:32 [facility] [id number]) Lumbar Spine Range of Motion Lumbar Spine Active Comments mod dec due to osteoporosis, tightness Hip Goniometric Range of Motion Hip Right Active Hip ROM WFL Yes Left Active Hip ROM WFL Yes Knee Goniometric Range of Motion Knee cathleen Knee ROM WFL Yes Ankle and Foot Goniometric Range of Motion Ankle and Foot cathleen Ankle/Foot ROM WFL No Dorsiflexion with Knee Flexed 5 Dorsiflexion with Knee Extended 0 PT-OP-N Lymphedema Start: 12/26/23 08:39 Freq: Status: Active Protocol: Document 01/16/24 10:33 [facility] (Rec: 01/16/24 11:59 [facility] [id number]) Lymphedema Measurements Lower Extremity Circumference Measurements Right MT Heads 21.5 cm Mid-foot 20.5 cm Medial Malleolus 23.8 cm 10 cm From Medial Malleolus 22.1 cm 20 cm From Medial Malleolus 27.8 cm 30 cm From Medial Malleolus 33 cm 40 cm From Medial Malleolus 37.9 cm 50 cm From Medial Malleolus 39.8 cm 60 cm From Medial Malleolus 42.3 cm 70 cm From Medial Malleolus 50.4 cm Knee Joint 40 cm Hip 60.3 cm left MT Heads 22.3 cm Mid-foot 21.7 cm Medial Malleolus 25 cm 10 cm From Medial Malleolus 24.3 cm 20 cm From Medial Malleolus 29.6 cm 30 cm From Medial Malleolus 34.3 cm 40 cm From Medial Malleolus 37.9 cm 50 cm From Medial Malleolus 39.5 cm 60 cm From Medial Malleolus 43 cm 70 cm From Medial Malleolus 48.8 cm Knee Joint 40.7 cm PT-OP-Q Treatments Start: 12/26/23 08:06 Freq: Status: Active Protocol: Document 01/17/24 13:00 [facility] (Rec: 01/17/24 13:18 [facility] [id number]) Manual Therapy Treatment Soft Tissue Mobilization surgical scar right LE Mobilization Type Instrument Assisted,Myofascial Release Intensity/Depth Moderate Body Position Supine Lymphedema Treatment Manual Lymphatic Drainage Location for cathleen LE lymphedema Duration 45 Comments patient instructed in self massage Lymphedema Wrapping Materials Compression stockings 15-20 mm Hg loaner Jasmynezo thigh high donned with assist of PT unable to independently don or doff so applied Size F Tubigrip Sequential Lymphedema Exercises Location cathleen LE's Compression Garment Assessment Compression Garment Assessment Details wrong size and compression level obtained. Patient to go to [facility] for fitting due to online ordering difficulty. PT-OP-T Assessment and Plan Start: 12/26/23 08:06 Freq: Status: Active Protocol: Document 01/17/24 13:00 [facility] (Rec: 01/17/24 13:18 [facility] [id number]) Physical Therapy Assessment Impairments Impairments Edema,Soft Tissue Mobility Goals 2 Impairment lymphedema life impact scale 21% Fun House Attendant Goal (LTG) Decrease lymphedema life impact scale to no greater than 5% as measure of improved knowledge of and ability to self manage her lymphedema. LTG Duration 03/24/24 1 Impairment lymphedema cathleen LE's Short Term Goal (STG) Patient will be instructed in all aspects of lymphedema self -care to include skin care, elevation, self-massage, self- bandaging/compression options, and lymphedema exercises. STG Duration 01/23/24 [facility] Goal (LTG) Decrease patient?s lymphedema to a stable level (no increase or decrease greater than 1 cm over the course of 1 week), patient to be independent with all aspects of self-care for lymphedema, and will obtain appropriate compression garment for lymphedema management in the home. LTG Duration 02/23/24 Progress Towards Goals Progress Towards Goals Progressing Toward Goals Assessment Summary Assessment Patient unable to don and doff 15-20 mm Hg stockings, has ordered 10-15 mm Hg stockings. Will use Tubigrip size F until receives. Physical Therapy Plan Frequency and Duration Frequency of Treatment 2x/Week Duration of treatment (weeks) 8 Plan of Care Start Date 12/26/23 Plan of Care End Date 02/24/24 Therapeutic Interventions Therapeutic Interventions Home Exercise Program, Lymphedema Management,Manual Therapy,Patient/Caregiver Education,Self-Care/Home Management,Soft Tissue Mobilization,Taping, Therapeutic Activities, Therapeutic Exercises Modalities Vasopneumatic Devices Next Visit Focus/Plan Next Note Type Treatment Note Next Visit Plan Continue CDT, evaluate fit and ability to don and doff stockings when receives new ones.
--- NOTE | 2024-01-21 13:30 | PT.OTN ---
Current Diagnoses Lymphedema, not elsewhere classified (01/21/24) Physical Therapy Treatment Note PT-OP-A Visit Information Start: 12/26/23 08:06 Freq: Status: Active Protocol: Document 01/21/24 13:00 [facility] (Rec: 01/21/24 13:30 [facility] [id number]) Out-Patient Physical Therapy Visit Information Visit Information Visit Type Treatment Note Visit Start Time 13:01 Visit Stop Time 14:30 Visit Number 6 Evaluation Information Evaluation Date 01/24/24 Precautions Precautions 10 lb weight lifting restriction osteoporosis peripheral neuropathy history large b-cell lymphoma spleen 2018; s/p splenectomy and chemo PT-OP-B Current Condition Start: 12/26/23 08:06 Freq: Status: Active Protocol: Document 01/21/24 13:00 [facility] (Rec: 01/21/24 13:30 [facility] [id number]) Current Condition History of Current Condition Onset Date 08/08/23 Current Complaints bilateral LE swelling. History of Current Condition Fell while shopping 08/08/23 fractured right hip and right humerus. Underwent partial anterior REBECA. Was in inpatient rehab, then home with [facility]. [facility] Using a walker for mobility. REports swelling in feet and legs which makes balance lindsay difficulty; [facility] legs looked like tree trunks. Has improved some with elevating LE's, has been wearing compression socks at least every other day but reports indentations in legs from stockings, walking 1/2 hr in house with music, and doing other exercise. Currently Prior Treatments and Tests partial right REBECA Treatment Goals Patient/Caregiver Goals decrease cathleen LE swelling to improve balance and mobility PT-OP-C Subjective Start: 12/26/23 08:06 Freq: Status: Active Protocol: Document 01/21/24 13:00 [facility] (Rec: 01/21/24 13:30 [facility] [id number]) OP-PT Subjective Patient Comments Patient Comments No new c/o. PT-OP-G Mobility & Gait Start: 12/26/23 08:07 Freq: Status: Active Protocol: Document 12/26/23 08:14 [facility] (Rec: 12/26/23 09:32 [facility] [id number]) OP Gait Assessment Gait Gait Assistance Required: Independent Assistive Devices Assistive Device 4 Wheeled Walker PT-OP-J Posture/Palpation/Skin Start: 12/26/23 08:06 Freq: Status: Active Protocol: Document 12/26/23 08:14 [facility] (Rec: 12/26/23 09:32 [facility] [id number]) Skin Assessment Edema Assessment cathleen LE's Edema Degree 2+ PT-OP-K Range of Motion Start: 12/26/23 08:06 Freq: Status: Active Protocol: Document 12/26/23 08:14 [facility] (Rec: 12/26/23 09:32 [facility] [id number]) Lumbar Spine Range of Motion Lumbar Spine Active Comments mod dec due to osteoporosis, tightness Hip Goniometric Range of Motion Hip Right Active Hip ROM WFL Yes Left Active Hip ROM WFL Yes Knee Goniometric Range of Motion Knee cathleen Knee ROM WFL Yes Ankle and Foot Goniometric Range of Motion Ankle and Foot cathleen Ankle/Foot ROM WFL No Dorsiflexion with Knee Flexed 5 Dorsiflexion with Knee Extended 0 PT-OP-N Lymphedema Start: 12/26/23 08:39 Freq: Status: Active Protocol: Document 01/21/24 13:00 [facility] (Rec: 01/21/24 13:30 [facility] [id number]) Lymphedema Measurements Lower Extremity Circumference Measurements Right MT Heads 21.3 cm Mid-foot 20 cm Medial Malleolus 22.7 cm 10 cm From Medial Malleolus 21 cm 20 cm From Medial Malleolus 28 cm 30 cm From Medial Malleolus 32.7 cm 40 cm From Medial Malleolus 37.8 cm 50 cm From Medial Malleolus 38.5 cm 60 cm From Medial Malleolus 42.6 cm 70 cm From Medial Malleolus 50.8 cm Knee Joint 38.5 cm Hip 60.3 cm left MT Heads 21.6 cm Mid-foot 21.4 cm Medial Malleolus 25.3 cm 10 cm From Medial Malleolus 21.7 cm 20 cm From Medial Malleolus 28.4 cm 30 cm From Medial Malleolus 33.2 cm 40 cm From Medial Malleolus 36.2 cm 50 cm From Medial Malleolus 38.8 cm 60 cm From Medial Malleolus 41.8 cm 70 cm From Medial Malleolus 49.3 cm Knee Joint 38.5 cm PT-OP-Q Treatments Start: 12/26/23 08:06 Freq: Status: Active Protocol: Document 01/21/24 13:00 [facility] (Rec: 01/21/24 13:30 [facility] [id number]) Manual Therapy Treatment Soft Tissue Mobilization surgical scar right LE Mobilization Type Instrument Assisted,Myofascial Release Intensity/Depth Moderate Body Position Supine Lymphedema Treatment Manual Lymphatic Drainage Location for cathleen LE lymphedema Duration 45 Comments patient instructed in self massage Lymphedema Wrapping Materials Assisted with donning size F Tubigrip Sequential Lymphedema Exercises Location cathleen LE's Compression Garment Assessment Compression Garment Assessment Details awaiting garments PT-OP-T Assessment and Plan Start: 12/26/23 08:06 Freq: Status: Active Protocol: Document 01/21/24 13:00 [facility] (Rec: 01/21/24 13:30 [facility] [id number]) Physical Therapy Assessment Impairments Impairments Edema,Soft Tissue Mobility Goals 2 Impairment lymphedema life impact scale 21% Custodial Goal (LTG) Decrease lymphedema life impact scale to no greater than 5% as measure of improved knowledge of and ability to self manage her lymphedema. LTG Duration 03/24/24 1 Impairment lymphedema cathleen LE's Short Term Goal (STG) Patient will be instructed in all aspects of lymphedema self -care to include skin care, elevation, self-massage, self- bandaging/compression options, and lymphedema exercises. STG Duration 01/23/24 Fruit Pitter Goal (LTG) Decrease patient?s lymphedema to a stable level (no increase or decrease greater than 1 cm over the course of 1 week), patient to be independent with all aspects of self-care for lymphedema, and will obtain appropriate compression garment for lymphedema management in the home. LTG Duration 02/23/24 Progress Towards Goals Progress Towards Goals Progressing Toward Goals Assessment Summary Assessment Continue CDT, improvement noted in most circuferential measurements. Patient highly compliant to all aspects of lymphedema care. Physical Therapy Plan Frequency and Duration Frequency of Treatment 2x/Week Duration of treatment (weeks) 8 Plan of Care Start Date 12/26/23 Plan of Care End Date 02/24/24 Therapeutic Interventions Therapeutic Interventions Home Exercise Program, Lymphedema Management,Manual Therapy,Patient/Caregiver Education,Self-Care/Home Management,Soft Tissue Mobilization,Taping, Therapeutic Activities, Therapeutic Exercises Modalities Vasopneumatic Devices Next Visit Focus/Plan Next Note Type Treatment Note Next Visit Plan Continue CDT, evaluate fit and ability to don and doff stockings when receives new ones.
--- NOTE | 2024-01-24 14:22 | PT.OTN ---
Current Diagnoses Lymphedema, not elsewhere classified (01/24/24) Physical Therapy Treatment Note PT-OP-A Visit Information Start: 12/26/23 08:06 Freq: Status: Active Protocol: Document 01/24/24 13:01 [facility] (Rec: 01/24/24 13:37 [facility] [id number]) Out-Patient Physical Therapy Visit Information Visit Information Visit Type Treatment Note Visit Start Time 13:00 Visit Stop Time 14:20 Visit Number 7 Evaluation Information Evaluation Date 01/24/24 Precautions Precautions 10 lb weight lifting restriction osteoporosis peripheral neuropathy history large b-cell lymphoma spleen 2018; s/p splenectomy and chemo PT-OP-B Current Condition Start: 12/26/23 08:06 Freq: Status: Active Protocol: Document 01/24/24 13:01 [facility] (Rec: 01/24/24 13:37 [facility] [id number]) Current Condition History of Current Condition Onset Date 08/08/23 Current Complaints bilateral LE swelling. History of Current Condition Fell while shopping 08/08/23 fractured right hip and right humerus. Underwent partial anterior REBECA. Was in inpatient rehab, then [facility] Using a walker for mobility. REports swelling in feet and legs which makes balance lindsay difficulty; [facility] legs looked like [facility] tr[facility]. Has improved some with elevating LE's, has been wearing compression socks at least every other day but reports indentations in legs from stockings, walking 1/2 hr in house with music, and doing other exercise. Currently Prior Treatments and Tests partial right REBECA Treatment Goals Patient/Caregiver Goals decrease cathleen LE swelling to improve balance and mobility PT-OP-C Subjective Start: 12/26/23 08:06 Freq: Status: Active Protocol: Document 01/21/24 13:00 [facility] (Rec: 01/21/24 13:30 [facility] [id number]) OP-PT Subjective Patient Comments Patient Comments No new c/o. PT-OP-G Mobility & Gait Start: 12/26/23 08:07 Freq: Status: Active Protocol: Document 12/26/23 08:14 [facility] (Rec: 12/26/23 09:32 [facility] [id number]) OP Gait Assessment Gait Gait Assistance Required: Independent Assistive Devices Assistive Device 4 Wheeled Walker PT-OP-J Posture/Palpation/Skin Start: 12/26/23 08:06 Freq: Status: Active Protocol: Document 12/26/23 08:14 [facility] (Rec: 12/26/23 09:32 [facility] [id number]) Skin Assessment Edema Assessment cathleen LE's Edema Degree 2+ PT-OP-K Range of Motion Start: 12/26/23 08:06 Freq: Status: Active Protocol: Document 12/26/23 08:14 [facility] (Rec: 12/26/23 09:32 [facility] [id number]) Lumbar Spine Range of Motion Lumbar Spine Active Comments mod dec due to osteoporosis, tightness Hip Goniometric Range of Motion Hip Right Active Hip ROM WFL Yes Left Active Hip ROM WFL Yes Knee Goniometric Range of Motion Knee cathleen Knee ROM WFL Yes Ankle and Foot Goniometric Range of Motion Ankle and Foot cathleen Ankle/Foot ROM WFL No Dorsiflexion with Knee Flexed 5 Dorsiflexion with Knee Extended 0 PT-OP-N Lymphedema Start: 12/26/23 08:39 Freq: Status: Active Protocol: Document 01/21/24 13:00 [facility] (Rec: 01/21/24 13:30 [facility] [id number]) Lymphedema Measurements Lower Extremity Circumference Measurements Right MT Heads 21.3 cm Mid-foot 20 cm Medial Malleolus 22.7 cm 10 cm From Medial Malleolus 21 cm 20 cm From Medial Malleolus 28 cm 30 cm From Medial Malleolus 32.7 cm 40 cm From Medial Malleolus 37.8 cm 50 cm From Medial Malleolus 38.5 cm 60 cm From Medial Malleolus 42.6 cm 70 cm From Medial Malleolus 50.8 cm Knee Joint 38.5 cm Hip 60.3 cm left MT Heads 21.6 cm Mid-foot 21.4 cm Medial Malleolus 25.3 cm 10 cm From Medial Malleolus 21.7 cm 20 cm From Medial Malleolus 28.4 cm 30 cm From Medial Malleolus 33.2 cm 40 cm From Medial Malleolus 36.2 cm 50 cm From Medial Malleolus 38.8 cm 60 cm From Medial Malleolus 41.8 cm 70 cm From Medial Malleolus 49.3 cm Knee Joint 38.5 cm PT-OP-Q Treatments Start: 12/26/23 08:06 Freq: Status: Active Protocol: Document 01/24/24 13:01 [facility] (Rec: 01/24/24 13:37 [facility] [id number]) Manual Therapy Treatment Soft Tissue Mobilization surgical scar right LE Mobilization Type Instrument Assisted,Myofascial Release Intensity/Depth Moderate Body Position Supine Lymphedema Treatment Manual Lymphatic Drainage Location for cathleen LE lymphedema Duration 45 Comments patient instructed in self massage Lymphedema Wrapping Materials Assisted with donning size F Tubigrip Sequential Lymphedema Exercises Location cathleen LE's Compression Garment Assessment Compression Garment Assessment Details awaiting garments PT-OP-T Assessment and Plan Start: 12/26/23 08:06 Freq: Status: Active Protocol: Document 01/24/24 13:01 [facility] (Rec: 01/24/24 13:37 [facility] [id number]) Physical Therapy Assessment Goals 2 Impairment lymphedema life impact scale 21% Slasher Runner Goal (LTG) Decrease lymphedema life impact scale to no greater than 5% as measure of improved knowledge of and ability to self manage her lymphedema. LTG Duration 03/24/24 1 Impairment lymphedema cathleen LE's Short Term Goal (STG) Patient will be instructed in all aspects of lymphedema self -care to include skin care, elevation, self-massage, self- bandaging/compression options, and lymphedema exercises. STG Duration 01/23/24 Fdc Goal (LTG) Decrease patient?s lymphedema to a stable level (no increase or decrease greater than 1 cm over the course of 1 week), patient to be independent with all aspects of self-care for lymphedema, and will obtain appropriate compression garment for lymphedema management in the home. LTG Duration 02/23/24 Progress Towards Goals Progress Towards Goals Progressing Toward Goals Assessment Summary Assessment Patient continues to improve with dec cathleen LE edema, improved functional activity tolerance and ability to self manage. Continues to wear Tubigrip cathleen lower legs until new garments come in at [facility] Physical Therapy Plan Frequency and Duration Frequency of Treatment 2x/Week Duration of treatment (weeks) 8 Plan of Care Start Date 12/26/23 Plan of Care End Date 02/24/24 Therapeutic Interventions Therapeutic Interventions Home Exercise Program, Lymphedema Management,Manual Therapy,Patient/Caregiver Education,Self-Care/Home Management,Soft Tissue Mobilization,Taping, Therapeutic Activities, Therapeutic Exercises Modalities Vasopneumatic Devices Next Visit Focus/Plan Next Note Type Treatment Note Next Visit Plan Continue CDT, evaluate fit and ability to don and doff stockings when receives new ones.
--- NOTE | 2024-02-19 12:08 | PT.OTN ---
Current Diagnoses Lymphedema, not elsewhere classified (02/19/24) Physical Therapy Treatment Note PT-OP-A Visit Information Start: 12/26/23 08:06 Freq: Status: Active Protocol: Document 02/19/24 10:30 [facility] (Rec: 02/19/24 12:08 [facility] [id number]) Out-Patient Physical Therapy Visit Information Visit Information Visit Type Treatment Note Visit Note Picked up compression socks yesterday and wore all day, fit well. States she put on this am and when walking down the hallway they slid down. Visit Start Time 10:30 Visit Stop Time 11:56 Visit Number 8 Evaluation Information Evaluation Date 01/24/24 Precautions Precautions 10 lb weight lifting restriction osteoporosis peripheral neuropathy history large b-cell lymphoma spleen 2018; s/p splenectomy and chemo PT-OP-B Current Condition Start: 12/26/23 08:06 Freq: Status: Active Protocol: Document 02/19/24 10:30 [facility] (Rec: 02/19/24 12:08 [facility] [id number]) Current Condition History of Current Condition Onset Date 08/08/23 Current Complaints bilateral LE swelling. History of Current Condition Fell while shopping 08/08/23 fractured right hip and right humerus. Underwent partial anterior REBECA. Was in inpatient rehab, then [facility] for [facility]. REports swelling in feet and legs which makes balance lindsay difficulty; [facility] legs looked like [facility] trunks. Has improved some with elevating LE's, has been wearing compression socks at least every other day but reports indentations in legs from stockings, walking 1/2 hr in house with music, and doing other exercise. Currently Prior Treatments and Tests partial right REBECA Treatment Goals Patient/Caregiver Goals decrease cathleen LE swelling to improve balance and mobility PT-OP-C Subjective Start: 12/26/23 08:06 Freq: Status: Active Protocol: Document 01/21/24 13:00 [facility] (Rec: 01/21/24 13:30 [facility] [id number]) OP-PT Subjective Patient Comments Patient Comments No new c/o. PT-OP-G Mobility & Gait Start: 12/26/23 08:07 Freq: Status: Active Protocol: Document 12/26/23 08:14 [facility] (Rec: 12/26/23 09:32 [facility] [id number]) OP Gait Assessment Gait Gait Assistance Required: Independent Assistive Devices Assistive Device 4 Wheeled Walker PT-OP-J Posture/Palpation/Skin Start: 12/26/23 08:06 Freq: Status: Active Protocol: Document 12/26/23 08:14 [facility] (Rec: 12/26/23 09:32 [facility] [id number]) Skin Assessment Edema Assessment cathleen LE's Edema Degree 2+ PT-OP-K Range of Motion Start: 12/26/23 08:06 Freq: Status: Active Protocol: Document 12/26/23 08:14 [facility] (Rec: 12/26/23 09:32 [facility] [id number]) Lumbar Spine Range of Motion Lumbar Spine Active Comments mod dec due to osteoporosis, tightness Hip Goniometric Range of Motion Hip Right Active Hip ROM WFL Yes Left Active Hip ROM WFL Yes Knee Goniometric Range of Motion Knee cathleen Knee ROM WFL Yes Ankle and Foot Goniometric Range of Motion Ankle and Foot cathleen Ankle/Foot ROM WFL No Dorsiflexion with Knee Flexed 5 Dorsiflexion with Knee Extended 0 PT-OP-N Lymphedema Start: 12/26/23 08:39 Freq: Status: Active Protocol: Document 02/19/24 10:30 [facility] (Rec: 02/19/24 12:08 [facility] [id number]) Lymphedema Measurements Lower Extremity Circumference Measurements Right MT Heads 21.1 cm Mid-foot 20 cm Medial Malleolus 22.8 cm 10 cm From Medial Malleolus 20.8 cm 20 cm From Medial Malleolus 28 cm 30 cm From Medial Malleolus 32.3 cm 40 cm From Medial Malleolus 37.8 cm 50 cm From Medial Malleolus 38.4 cm 60 cm From Medial Malleolus 42.5 cm 70 cm From Medial Malleolus 50.4 cm Knee Joint 38.4 cm Hip 60.4 cm left MT Heads 22 cm Mid-foot 21.6 cm Medial Malleolus 22.4 cm 10 cm From Medial Malleolus 21.8 cm 20 cm From Medial Malleolus 29.3 cm 30 cm From Medial Malleolus 33.2 cm 40 cm From Medial Malleolus 37 cm 50 cm From Medial Malleolus 39.3 cm 60 cm From Medial Malleolus 42.9 cm 70 cm From Medial Malleolus 50.2 cm Knee Joint 38.4 cm PT-OP-Q Treatments Start: 12/26/23 08:06 Freq: Status: Active Protocol: Document 02/19/24 10:30 [facility] (Rec: 02/19/24 12:08 [facility] [id number]) Manual Therapy Treatment Soft Tissue Mobilization surgical scar right LE Mobilization Type Instrument Assisted,Myofascial Release Intensity/Depth Moderate Body Position Supine Lymphedema Treatment Manual Lymphatic Drainage Location for cathleen LE lymphedema Duration 45 Comments review Lymphedema Wrapping Materials had patient demonstrate donning and doffing new compression stockings; Jobst 15-20 thigh high and then PT donned end of session instructing in need to distribute fabric evenly as way to prevent sliding down. Sequential Lymphedema Exercises Location reviewed Compression Garment Assessment Compression Garment Assessment Details Thigh high 15-20 mm Hg Jobst compression garments appeared to fit well but had patient walk after she donned garments and they quickly began to slide down. Trial wiping silicone (even though she laundered this am and didn't apply lotion), as well as making sure to evenly distribute fabric, preventing overstretching at the top which may contribute to worsening. Patient Education Other PT emailed Simi at [facility] regarding issues with compression garments; patient to call to discuss. Also another option is knee high; discussed with patient. PT-OP-T Assessment and Plan Start: 12/26/23 08:06 Freq: Status: Active Protocol: Document 02/19/24 10:30 [facility] (Rec: 02/19/24 12:08 [facility] [id number]) Physical Therapy Assessment Impairments Impairments Edema,Soft Tissue Mobility Goals 2 Impairment lymphedema life impact scale 21% Alf Goal (LTG) Decrease lymphedema life impact scale to no greater than 5% as measure of improved knowledge of and ability to self manage her lymphedema. LTG Duration 03/24/24 1 Impairment lymphedema cathleen LE's Short Term Goal (STG) Patient will be instructed in all aspects of lymphedema self -care to include skin care, elevation, self-massage, self- bandaging/compression options, and lymphedema exercises. STG Duration 01/23/24 Alf Goal (LTG) Decrease patient?s lymphedema to a stable level (no increase or decrease greater than 1 cm over the course of 1 week), patient to be independent with all aspects of self-care for lymphedema, and will obtain appropriate compression garment for lymphedema management in the home. LTG Duration 02/23/24 Progress Towards Goals Progress Towards Goals Progressing Toward Goals Assessment Summary Assessment Pt. having difficulty with fit of compression stockings, slid down on her at home both before and after laundering and at PT immediately after putting on. Tried problem solving but still occuring. Patient to call [facility] to discuss with Simi (fitter). Option is for different garment with better silicone or consider knee high instead. Circumferential measurements mostly stable (see above) Physical Therapy Plan Frequency and Duration Frequency of Treatment 2x/Week Duration of treatment (weeks) 8 Plan of Care Start Date 12/26/23 Plan of Care End Date 02/24/24 Therapeutic Interventions Therapeutic Interventions Home Exercise Program, Lymphedema Management,Manual Therapy,Patient/Caregiver Education,Self-Care/Home Management,Soft Tissue Mobilization,Taping, Therapeutic Activities, Therapeutic Exercises Modalities Vasopneumatic Devices Next Visit Focus/Plan Next Note Type Treatment Note Next Visit Plan Follow-up appt in 3-4 weeks regarding compression and reassess circumferential measurements again.
--- NOTE | 2024-04-10 15:19 | PT.OTRE ---
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) History of thoracentesis Hx of dilation and curettage Hx of endarterectomy (02/19/08) Visit Care Team Role Provider Type Rojas Rose MD Family Provider Physician Primary Care Provider Specialty: Family Practice Address: [address] [place] [address], [address] Email: [email or web address] Bebo Garcia MD Attending Provider Physician Referring Provider Specialty: Orthopedics Orthopedic Surgery Address: [address] [place] [address], [id number] Email: [email or web address] Physical Therapy Re-Evaluation PT-OP-A Visit Information Start: 12/26/23 08:06 Freq: Status: Active Protocol: Document 04/10/24 14:35 SAK (Rec: 04/10/24 15:19 [facility] [id number]) Out-Patient Physical Therapy Visit Information Visit Information Visit Type Treatment Note Visit Start Time 14:35 Visit Stop Time 15:05 Visit Number 9 Evaluation Information Evaluation Date 01/24/24 Precautions Precautions 10 lb weight lifting restriction osteoporosis peripheral neuropathy history large b-cell lymphoma spleen 2018; s/p splenectomy and chemo PT-OP-B Current Condition Start: 12/26/23 08:06 Freq: Status: Active Protocol: Document 04/10/24 14:35 SAK (Rec: 04/10/24 15:19 SAK [id number]) Current Condition History of Current Condition Onset Date 08/08/23 Current Complaints bilateral LE swelling. History of Current Condition Fell while shopping 08/08/23 fractured right hip and right humerus. Underwent partial anterior REBECA. Was in inpatient rehab, then [facility]. [facility] for mobility. REports swelling in feet and legs which makes balance lindsay difficulty; [facility] legs looked like tree trunks. Has improved some with elevating LE's, has been wearing compression socks at least every other day but reports indentations in legs from stockings, walking 1/2 hr in house with music, and doing other exercise. Currently Prior Treatments and Tests partial right REBECA PT-OP-C Subjective Start: 12/26/23 08:06 Freq: Status: Active Protocol: Document 04/10/24 14:35 SAK (Rec: 04/10/24 15:19 [facility] [id number]) OP-PT Subjective Patient Comments Patient Comments Has new compression socks, knee high, work and fit well per patient. Continues with PT for her hip and shoulder. Hasn't returned to aquatic exercise yet. PT-OP-G Mobility & Gait Start: 12/26/23 08:07 Freq: Status: Active Protocol: Document 12/26/23 08:14 SAK (Rec: 12/26/23 09:32 [facility] [id number]) OP Gait Assessment Gait Gait Assistance Required: Independent Assistive Devices Assistive Device 4 Wheeled Walker PT-OP-J Posture/Palpation/Skin Start: 12/26/23 08:06 Freq: Status: Active Protocol: Document 12/26/23 08:14 SAK (Rec: 12/26/23 09:32 [facility] [id number]) Skin Assessment Edema Assessment cathleen LE's Edema Degree 2+ PT-OP-K Range of Motion Start: 12/26/23 08:06 Freq: Status: Active Protocol: Document 12/26/23 08:14 SAK (Rec: 12/26/23 09:32 [facility] [id number]) Lumbar Spine Range of Motion Lumbar Spine Active Comments mod dec due to osteoporosis, tightness Hip Goniometric Range of Motion Hip Measured in Degrees Right Active Hip ROM WFL Yes Left Active Hip ROM WFL Yes Knee Goniometric Range of Motion Knee Measured in Degrees cathleen Knee ROM WFL Yes Ankle and Foot Goniometric Range of Motion Ankle and Foot Measured in Degrees cathleen Ankle/Foot ROM WFL No Dorsiflexion with Knee Flexed 5 Dorsiflexion with Knee Extended 0 PT-OP-N Lymphedema Start: 12/26/23 08:39 Freq: Status: Active Protocol: Document 04/10/24 14:35 [facility] (Rec: 04/10/24 15:19 [facility] [id number]) Lymphedema Measurements Lower Extremity Circumference Measurements Right MT Heads 20.8 cm Mid-foot 20.1 cm Medial Malleolus 22.8 cm 10 cm From Medial Malleolus 19.8 cm 20 cm From Medial Malleolus 27.7 cm 30 cm From Medial Malleolus 31.5 cm 40 cm From Medial Malleolus 36.8 cm 50 cm From Medial Malleolus 39.8 cm 60 cm From Medial Malleolus 41.8 cm 70 cm From Medial Malleolus 47 cm Knee Joint 39.2 cm Hip 60.1 cm left MT Heads 21 cm Mid-foot 21.5 cm Medial Malleolus 23 cm 10 cm From Medial Malleolus 21.7 cm 20 cm From Medial Malleolus 29.4 cm 30 cm From Medial Malleolus 32.2 cm 40 cm From Medial Malleolus 37.8 cm 50 cm From Medial Malleolus 39.4 cm 60 cm From Medial Malleolus 42 cm 70 cm From Medial Malleolus 48.2 cm Knee Joint 37.8 cm Hip 60 cm PT-OP-Q Treatments Start: 12/26/23 08:06 Freq: Status: Active Protocol: Document 04/10/24 14:35 [facility] (Rec: 04/10/24 15:19 [facility] [id number]) Lymphedema Treatment Manual Lymphatic Drainage Comments no need Lymphedema Wrapping Materials reviewed donning and doffing of new knee high compression stockings; patient demonstrated good understanding Sequential Lymphedema Exercises Comments patient indep Compression Garment Assessment Compression Garment Assessment Details knee high 15-20 mm Hg compression stockings; patient able to don and fit well, measurements stable lower leg, inc small amount in knee due to not having compression cross the knee; instructed emphasis on massage of knees and cont increase exercise and activity as tolerated, monitor for any increase. Patient Education Other encouraged patient to obtain second set of compression stockings for better ability to have one in laundry while wearing other so no gap in compression PT-OP-T Assessment and Plan Start: 12/26/23 08:06 Freq: Status: Active Protocol: Document 04/10/24 14:35 [facility] (Rec: 04/10/24 15:19 [facility] [id number]) Physical Therapy Assessment Goals 2 Impairment lymphedema life impact scale 21% Educational Director Goal (LTG) Decrease lymphedema life impact scale to no greater than 5% as measure of improved knowledge of and ability to self manage her lymphedema. 04/10/24: goal met LTG Duration 04/22/24 1 Impairment lymphedema cathleen LE's Short Term Goal (STG) Patient will be instructed in all aspects of lymphedema self -care to include skin care, elevation, self-massage, self- bandaging/compression options, and lymphedema exercises. 02/19/24: goal met STG Duration goal met Educational Director Goal (LTG) Decrease patient?s lymphedema to a stable level (no increase or decrease greater than 1 cm over the course of 1 week), patient to be independent with all aspects of self-care for lymphedema, and will obtain appropriate compression garment for lymphedema management in the home. LTG Duration 04/22/24: goal met Progress Towards Goals Progress Towards Goals Goals Met Assessment Summary Assessment Good fit Juzo 8-15 mm Hg knee high compression stockings. Circumferential measurements stable or dec except at knees due to not having compression now at knees shows small increase; patient advised to increase lymphatic massage emphasis at knees and continue to increase activity level, monitor for any worsening but doesn't appear to be big issue . Patient doing well, will order second set of compression stockings and continue with self care. No further PT needs after today's visit she has achieved PT goals. Today's POC is to certify today's visit. Physical Therapy Plan Frequency and Duration Frequency of Treatment 1 visit Duration of treatment (weeks) 8 Plan of Care Start Date 02/24/24 Plan of Care End Date 04/25/28 Therapeutic Interventions Therapeutic Interventions Home Exercise Program, Lymphedema Management,Manual Therapy,Patient/Caregiver Education,Self-Care/Home Management,Soft Tissue Mobilization,Taping, Therapeutic Activities, Therapeutic Exercises Modalities Vasopneumatic Devices Discharge Physical Therapy Discharge Reasons Goals Met
--- NOTE | 2024-04-10 15:19 | PT.OPPOC ---
Physical, Occupational & Speech Therapy At [facility] Current Diagnoses Lymphedema, not elsewhere classified (04/10/24) Visit Care Team Role Provider Type Rojas Rose MD Family Provider Physician Primary Care Provider Specialty: Family Practice Address: [address] [place] [address], [place], [address] Email: [email or web address] Bebo Garcia MD Attending Provider Physician Referring Provider Specialty: Orthopedics Orthopedic Surgery Address: [address] [place] [address], [address] Email: [email or web address] Plan Of Care PT-OP-T Assessment and Plan Start: 12/26/23 08:06 Freq: Status: Active Protocol: Document 04/10/24 14:35 SAK (Rec: 04/10/24 15:19 SAK [id number]) Physical Therapy Assessment Goals 2 Impairment lymphedema life impact scale 21% Top Dyeing Machine Loader Goal (LTG) Decrease lymphedema life impact scale to no greater than 5% as measure of improved knowledge of and ability to self manage her lymphedema. 04/10/24: goal met LTG Duration 04/22/24 1 Impairment lymphedema cathleen LE's Short Term Goal (STG) Patient will be instructed in all aspects of lymphedema self -care to include skin care, elevation, self-massage, self- bandaging/compression options, and lymphedema exercises. 02/19/24: goal met STG Duration goal met Top Dyeing Machine Loader Goal (LTG) Decrease patient?s lymphedema to a stable level (no increase or decrease greater than 1 cm over the course of 1 week), patient to be independent with all aspects of self-care for lymphedema, and will obtain appropriate compression garment for lymphedema management in the home. LTG Duration 04/22/24: goal met Progress Towards Goals Progress Towards Goals Goals Met Assessment Summary Assessment Good fit Juzo 8-15 mm Hg knee high compression stockings. Circumferential measurements stable or dec except at knees due to not having compression now at knees shows small increase; patient advised to increase lymphatic massage emphasis at knees and continue to increase activity level, monitor for any worsening but doesn't appear to be big issue . Patient doing well, will order second set of compression stockings and continue with self care. No further PT needs after today's visit she has achieved PT goals. Today's POC is to certify today's visit. Physical Therapy Plan Frequency and Duration Frequency of Treatment 1 visit Duration of treatment (weeks) 8 Plan of Care Start Date 02/24/24 Plan of Care End Date 04/25/28 Therapeutic Interventions Therapeutic Interventions Home Exercise Program, Lymphedema Management,Manual Therapy,Patient/Caregiver Education,Self-Care/Home Management,Soft Tissue Mobilization,Taping, Therapeutic Activities, Therapeutic Exercises Modalities Vasopneumatic Devices Discharge Physical Therapy Discharge Reasons Goals Met Plan of Care Dates Plan of Care Start Date 02/24/24 Plan of Care End Date 04/25/28 Electronically Signed by: Elaine Pierre, PT 04/10/24 2490 If you are in agreement with this Plan of Care, please return a signed and dated copy. I have reviewed this Plan of Care and certify that the skilled therapy services above are required to meet the patient?s needs. Physician Signature Date Printed Name and Credentials Clinical Instructor Signature Printed Name and Credentials
--- NOTE | 2024-05-29 14:27 | PT.OPDS ---
Current Diagnoses Lymphedema, not elsewhere classified (04/10/24) Visit Care Team Role Provider Type Rojas Rose MD Family Provider Physician Primary Care Provider Specialty: Family Practice Address: [address] [place] [address], [facility], [place], [address] Email: [email or web address] Bebo Garcia MD Attending Provider Physician Referring Provider Specialty: Orthopedics Orthopedic Surgery Address: [address] [place] [address], [place], [address] Email: [email or web address] Visit Number Visit Number 9 Discharge Summary PT-OP-B Current Condition Start: 12/26/23 08:06 Freq: Status: Active Protocol: Document 04/10/24 14:35 SAK (Rec: 04/10/24 15:19 SAK [id number]) Current Condition History of Current Condition Onset Date 08/08/23 Current Complaints bilateral LE swelling. History of Current Condition Fell while shopping 08/08/23 fractured right hip and right humerus. Underwent partial anterior REBECA. Was in inpatient rehab, then [facility]. [facility] Using a walker for mobility. REports swelling in feet and legs which makes balance lindsay difficulty; [facility] Initially legs looked like tree trunks. Has improved some with elevating LE's, has been wearing compression socks at least every other day but reports indentations in legs from stockings, walking 1/2 hr in house with music, and doing other exercise. Currently Prior Treatments and Tests partial right REBECA PT-OP-C Subjective Start: 12/26/23 08:06 Freq: Status: Active Protocol: Document 04/10/24 14:35 SAK (Rec: 04/10/24 15:19 SAK [id number]) OP-PT Subjective Patient Comments Patient Comments Has new compression socks, knee high, work and fit well per patient. Continues with PT for her hip and shoulder. Hasn't returned to aquatic exercise yet. PT-OP-G Mobility & Gait Start: 12/26/23 08:07 Freq: Status: Active Protocol: Document 12/26/23 08:14 SAK (Rec: 12/26/23 09:32 [facility] [id number]) OP Gait Assessment Gait Gait Assistance Required: Independent Assistive Devices Assistive Device 4 Wheeled Walker PT-OP-J Posture/Palpation/Skin Start: 12/26/23 08:06 Freq: Status: Active Protocol: Document 12/26/23 08:14 [facility] (Rec: 12/26/23 09:32 [facility] [id number]) Skin Assessment Edema Assessment cathleen LE's Edema Degree 2+ PT-OP-K Range of Motion Start: 12/26/23 08:06 Freq: Status: Active Protocol: Document 12/26/23 08:14 [facility] (Rec: 12/26/23 09:32 [facility] [id number]) Lumbar Spine Range of Motion Lumbar Spine Active Comments mod dec due to osteoporosis, tightness Hip Goniometric Range of Motion Hip Right Active Hip ROM WFL Yes Left Active Hip ROM WFL Yes Knee Goniometric Range of Motion Knee cathleen Knee ROM WFL Yes Ankle and Foot Goniometric Range of Motion Ankle and Foot cathleen Ankle/Foot ROM WFL No Dorsiflexion with Knee Flexed 5 Dorsiflexion with Knee Extended 0 PT-OP-N Lymphedema Start: 12/26/23 08:39 Freq: Status: Active Protocol: Document 04/10/24 14:35 [facility] (Rec: 04/10/24 15:19 [facility] [id number]) Lymphedema Measurements Lower Extremity Circumference Measurements Right MT Heads 20.8 cm Mid-foot 20.1 cm Medial Malleolus 22.8 cm 10 cm From Medial Malleolus 19.8 cm 20 cm From Medial Malleolus 27.7 cm 30 cm From Medial Malleolus 31.5 cm 40 cm From Medial Malleolus 36.8 cm 50 cm From Medial Malleolus 39.8 cm 60 cm From Medial Malleolus 41.8 cm 70 cm From Medial Malleolus 47 cm Knee Joint 39.2 cm Hip 60.1 cm left MT Heads 21 cm Mid-foot 21.5 cm Medial Malleolus 23 cm 10 cm From Medial Malleolus 21.7 cm 20 cm From Medial Malleolus 29.4 cm 30 cm From Medial Malleolus 32.2 cm 40 cm From Medial Malleolus 37.8 cm 50 cm From Medial Malleolus 39.4 cm 60 cm From Medial Malleolus 42 cm 70 cm From Medial Malleolus 48.2 cm Knee Joint 37.8 cm Hip 60 cm PT-OP-T Assessment and Plan Start: 12/26/23 08:06 Freq: Status: Active Protocol: Document 04/10/24 14:35 [facility] (Rec: 04/10/24 15:19 [facility] [id number]) Physical Therapy Assessment Goals 2 Impairment lymphedema life impact scale 21% Buffing Machine Operator Semiautomatic Goal (LTG) Decrease lymphedema life impact scale to no greater than 5% as measure of improved knowledge of and ability to self manage her lymphedema. 04/10/24: goal met LTG Duration 04/22/24 1 Impairment lymphedema cathleen LE's Short Term Goal (STG) Patient will be instructed in all aspects of lymphedema self -care to include skin care, elevation, self-massage, self- bandaging/compression options, and lymphedema exercises. 02/19/24: goal met STG Duration goal met Buffing Machine Operator Semiautomatic Goal (LTG) Decrease patient?s lymphedema to a stable level (no increase or decrease greater than 1 cm over the course of 1 week), patient to be independent with all aspects of self-care for lymphedema, and will obtain appropriate compression garment for lymphedema management in the home. LTG Duration 04/22/24: goal met Progress Towards Goals Progress Towards Goals Goals Met Assessment Summary Assessment Good fit Juzo 8-15 mm Hg knee high compression stockings. Circumferential measurements stable or dec except at knees due to not having compression now at knees shows small increase; patient advised to increase lymphatic massage emphasis at knees and continue to increase activity level, monitor for any worsening but doesn't appear to be big issue . Patient doing well, will order second set of compression stockings and continue with self care. No further PT needs after today's visit she has achieved PT goals. Today's POC is to certify today's visit. Physical Therapy Plan Frequency and Duration Frequency of Treatment 1 visit Duration of treatment (weeks) 8 Plan of Care Start Date 02/24/24 Plan of Care End Date 04/25/28 Therapeutic Interventions Therapeutic Interventions Home Exercise Program, Lymphedema Management,Manual Therapy,Patient/Caregiver Education,Self-Care/Home Management,Soft Tissue Mobilization,Taping, Therapeutic Activities, Therapeutic Exercises Modalities Vasopneumatic Devices Discharge Physical Therapy Discharge Reasons Goals Met
== END 2024-06-02 13:48 | disposition home or self-care (01) ==
LOC: PHYS 14:30
PROVIDERS: Family Provider Family Medicine; PCP Family Medicine; Referring Provider Orthopaedic Surgery Adult Reconstructive Orthopaedic Surgery; Visit Provider Orthopaedic Surgery Adult Reconstructive Orthopaedic Surgery
DX: I89.0 Lymphedema, not elsewhere classified (principal)
CPT/HCPCS: 97110; 97140; 97162; 97530; 97535

== ENCOUNTER → 2024-12-12 11:36 | Outpatient (CLI) | payer MEDICARE, OTHER, SELFPAY ==
[2023-08-08 23:38] VITALS: BMI 20.3
--- NOTE | 2024-12-12 11:38 | DI.RAD.S_ITS ---
PROCEDURE: XR DEXA AXIAL SKELETON INDICATIONS: Screening COMPARISON: [facility], , XR DEXA AXIAL SKELETON, 10/04/2022, 11:13. [facility], CR, XR DEXA AXIAL SKELETON, 02/01/2022, 10:27. FINDINGS: Lumbar Spine: L1-L4. Bone mineral density 0.956 g/cm2, T score -0.8. Left Femoral Neck: Bone mineral density 0.556 g/cm2, T score -2.6. Left Hip: Bone mineral density 0.671 g/cm2, T score -2.2. Fracture Risk Calculation (when applicable): 10-year fracture risk of a major osteoporotic fracture 19 percent and of a hip fracture 7.0 percent. (T score greater or equal to -1.0 to: NORMAL) (T score from -1.1 to -2.4: OSTEOPENIA) (T score less than or equal to -2.5: OSTEOPOROSIS) IMPRESSION: Osteoporosis. Follow-up guidelines as follows: Osteoporosis: Consider a repeat DEXA and Vertebral Fracture Assessment (VFA) exam in 2 years or sooner if medically necessary, to reassess this patient's status. Osteopenia: Consider a repeat DEXA in 2-3 years to reassess this patient's status, or if there is a new clinical indication. Normal: Consider a repeat DEXA in 5 years or sooner, or if there is a new clinical indication. All treatment decisions require clinical judgment and consideration of individual patient factors, including patient preferences, comorbidities, previous drug use, risk factors not captured in the FRAX model (e.g., frailty, falls, vitamin D deficiency, increased bone turnover, interval significant decline in bone density ) and possible under- or over-estimation of fracture risk by FRAX. In addition, the NOF Guide recommends that FDA-approved medical therapies be considered in postmenopausal women and men age >= 50 years with a: * Hip or vertebral (clinical or morphometric) fracture * T-score of <=-2.5 at the spine or hip * Ten-year fracture probability by FRAX of >= 3% for hip fracture or >=20% for major osteoporotic fracture. Dictated by: Niraj Villanueva M.D. on 12/12/2024 at 22:08 Approved by: Niraj Villanueva M.D. on 12/12/2024 at 22:09
== END ==
PROVIDERS: Family Provider Family Medicine; PCP Family Medicine; Referring Provider Internal Medicine Endocrinology, Diabetes & Metabolism; Visit Provider Internal Medicine Endocrinology, Diabetes & Metabolism
DX: M81.0 Age-related osteoporosis without current pathological fracture (principal)
CPT/HCPCS: 77080

== ENCOUNTER → 2024-12-17 13:33 | Outpatient (CLI) | payer MEDICARE, OTHER, SELFPAY ==
[2023-08-08 23:38] VITALS: BMI 20.3
[2024-12-17 15:00] LABS: BUN Creatinine Ratio 33.3 (6-22); Blood Urea Nitrogen 29 mg/dL (7-17); Calcium 9.6 mg/dL (8.4-10.2); Carbon Dioxide 28 mmol/L (22-32); Chloride 103 mmol/L (98-107); Estimated Glomerular Filt Rate > 60 mL/min (>60); Glucose 134 mg/dL (80-110); HEMOLYSIS < 15 (0-50); Potassium 4.2 mmol/L (3.4-5.1); Sodium 141 mmol/L (137-145)
[2024-12-17 16:19] LABS: Vitamin D 25 Hydroxy (D3) 75.2 ng/mL (30.0-100.0)
== END ==
PROVIDERS: Family Provider Family Medicine; PCP Family Medicine; Referring Provider Internal Medicine Endocrinology, Diabetes & Metabolism; Visit Provider Internal Medicine Endocrinology, Diabetes & Metabolism
DX: M81.0 Age-related osteoporosis without current pathological fracture (principal)
CPT/HCPCS: 36415; 80048; 82306

== ENCOUNTER 2024-12-21 11:15 | Emergency (ER) | payer MEDICARE, OTHER, SELFPAY ==
[2023-08-08 23:38] VITALS: BMI 20.3
[2024-12-21] VITALS (9 sets, daily range): BP systolic 130–164; BP diastolic 62–73; PULSE 69–77; RESP 20; TEMP 36.9; O2SAT 95–100
--- NOTE | 2024-12-21 11:29 | EKG_ITS ---
[address] [address] Test Date: 2024-12-21 Pat Name: Lesvia Mccollum Department: Room: Gender: Female Electronic Equipment Repairer: YANELIS : 1935 Requested By: Order Number: [id number] Reading MD: Ilia Moura Measurements Intervals [place] Rate: 65 P: 86 IA: 166 QRS: 16 QRSD: 70 T: 35 QT: 402 QTc: 418 Interpretive Statements Normal sinus rhythm Septal infarct , age undetermined Electronically Signed On 12-22-2024 7:21:28 PST by Ilia Moura
--- NOTE | 2024-12-21 11:39 | DI.RAD.S_ITS ---
PROCEDURE: XR CHEST 1V INDICATIONS: chest pain TECHNIQUE: One view of the chest was acquired. COMPARISON: [facility], CR, XR CHEST 1V, 07/29/2018, 13:25. [facility], CR, XR CHEST 1V, 08/08/2023, 21:27. FINDINGS: Surgical changes and devices: None. Lungs and pleura: Lungs are clear, yet hyperexpanded. No pleural effusions or pneumothorax. Mediastinum: The cardiac contours are mildly enlarged. The aorta demonstrates calcification and tortuosity. Bones and chest wall: No suspicious bony lesions. Age-appropriate bony degenerative changes are seen. Mild dextroconvex scoliotic curvature is seen. Overlying soft tissues appear unremarkable. Moderate tearing leads are seen overlying the lower chest and the abdomen. IMPRESSION: Hyperexpanded lungs, without an acute cardiopulmonary process identified. Mild cardiomegaly. Dictated by: Kp Sandoval M.D. on 12/21/2024 at 11:16 Approved by: Kp Sandoval M.D. on 12/21/2024 at 11:17
--- NOTE | 2024-12-21 11:51 | ED_ITS ---
HPI - Syncope General Chief Complaint: Syncope Stated Complaint: Syncope Time Seen by Provider: 12/21/24 11:44 Source: patient and EMS Mode of arrival: EMS Limitations: no limitations History of Present Illness HPI narrative: This is an 89-year-old female brought in by ambulance for syncope. History is obtained from the patient, from a friend of the patient who was present during the incident and from EMS. Reportedly she was at [employer] attending a sermon and seated. She slumped over to her side was noted to be unresponsive was not laid down and within a couple of minutes regained consciousness was alert and appropriate. No tonic-clonic activity was observed. The patient says she felt a little lightheaded previous to this but did not have chest pain shortness of breath fevers nausea vomiting has not been having dark stool and has not had any recent medication changes. She notices that she feels fine. Related Data Home Medications Medication Instructions Recorded Confirmed aspirin 81 mg tablet,delayed 81 mg PO DAILY 03/08/18 08/09/23 release (Tricia Low Dose Aspirin) omega 6-fjw-wmn-fish oil 1,000 mg 1,200 mg PO QDAY 03/08/18 08/09/23 (120 mg-180 mg) capsule (Fish Oil) loratadine 10 mg tablet 10 mg PO DAILY 04/03/18 08/09/23 (Allerclear) Calcium 750, D3 500, Vitamin K 1 tab PO QPM 07/29/18 08/09/23 [id number]-swldsr 1 tab PO QPM 07/29/18 08/09/23 tablet (Multivitamin 50 Plus tablet) cyanocobalamin (vitamin B-12) 1,000 mcg PO DAILY 07/17/22 08/09/23 1,000 mcg tablet (Vitamin B-12) alendronate 10 mg tablet 10 mg PO DAILY 01/15/23 08/09/23 atorvastatin 20 mg tablet (Lipitor) 20 mg PO QPM 01/15/23 08/09/23 levothyroxine 88 mcg tablet 88 mcg PO QPM 08/09/23 08/09/23 Previous Rx's Medication Instructions Recorded folic acid 1 mg tablet 1 mg PO DAILY #30 tabs 02/06/23 hydrocodone 5 mg-acetaminophen 325 1 tab PO Q4-6H PRN pain #20 tabs 08/06/23 mg tablet acetaminophen 325 mg tablet 650 mg (2 x 325 mg) PO Q6HR PRN 08/13/23 Fever/Mild Pain (1-3) #100 tabs docusate sodium 100 mg capsule 100 mg PO BID #60 caps 08/13/23 ferrous sulfate 325 mg (65 mg 325 mg PO DAILY #60 tabs 08/13/23 iron) tablet oxycodone 5 mg tablet 5 mg PO Q4HR PRN Pain, Moderate 08/13/23 (4-6) #60 tabs Allergies Allergy/AdvReac Type Severity Reaction Status Date / Time Penicillins Allergy Intermediate Rash Verified 08/09/23 11:10 Sulfa (Sulfonamide Allergy Intermediate Rash Verified 08/09/23 11:12 Antibiotics) adhesive tape AdvReac Unknown Rash Verified 10/01/19 09:01 Patient History Medical History (Updated 12/21/24 @ 13:40 by Ant Gamble MD) Neuropathy Diverticulosis Diffuse large B cell lymphoma Splenic neoplasm Pneumothorax, acute Left humeral fracture UTI (urinary tract infection) Cough Pneumonia TIA (transient ischemic attack) (~11/2007) Seasonal allergies Asthma Pleural effusion Fracture of humeral head Hypothyroid Surgical History 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) History of thoracentesis History of removal of cyst History of conization of cervix Hx of dilation and curettage History of facial surgery Hx of endarterectomy (02/19/08) Social History household members: none Smoking Status: Never smoker alcohol intake: current Smoking Status: Never smoker alcohol intake frequency: a few times a month Exam Initial Vital Signs Initial Vital Signs: Vital Signs Temperature 98.4 F 12/21/24 11:20 Pulse Rate 70 12/21/24 11:20 Respiratory Rate 20 12/21/24 11:20 Blood Pressure 138/73 12/21/24 11:20 Pulse Oximetry 100 12/21/24 11:20 Oxygen Delivery Method Room Air 12/21/24 11:20 HENNM HENNM Other: Normocephalic atraumatic Resp Other: Lungs are clear Cardio Other: Regular rhythm rate no murmur rub or gallop Skin Other: Warm and dry Neuro Other: Alert fully oriented without cranial nerve deficits or focal week Course Orders Ordered: ED Orders 12/21/24 11:23 Complete Blood Count AUTO DIFF Stat Comprehensive Metabolic Panel Stat Lipase Stat Magnesium Stat NT-proBNP (BNP-Adult 18+) Stat PTT Partial Thromboplastin [place] Stat Prothrombin Time INR Stat Troponin & CK Cardiac Panel Stat 12/21/24 11:39 XR chest 1V Stat EKG-12 Lead Stat 12/21/24 13:00 Urine Microscopic Stat Discontinued Medications Aspirin (Aspirin 81 Mg Chew Tab) 324 mg PO NOW ONE Stop: 12/21/24 11:40 Last Admin: 12/21/24 12:40 Dose: Not Given Documented By: AI Vital Signs Vital signs: Vital Signs - 8 hr 12/21/24 11:20 12/21/24 11:21 12/21/24 11:21 Temperature 98.4 F Pulse Rate 70 73 Respiratory Rate 20 Blood Pressure 138/73 138/73 Pulse Oximetry 100 99 Oxygen Delivery Method Room Air 12/21/24 11:25 12/21/24 11:25 12/21/24 11:30 Temperature Pulse Rate 69 Respiratory Rate Blood Pressure 143/63 H 130/62 Pulse Oximetry 97 Oxygen Delivery Method 12/21/24 11:30 12/21/24 12:00 12/21/24 12:00 Temperature Pulse Rate 71 71 Respiratory Rate Blood Pressure 152/67 H Pulse Oximetry 100 99 Oxygen Delivery Method 12/21/24 12:30 12/21/24 12:30 12/21/24 13:00 Temperature Pulse Rate 73 77 Respiratory Rate Blood Pressure 164/73 H Pulse Oximetry 97 95 Oxygen Delivery Method 12/21/24 13:30 12/21/24 13:31 Temperature Pulse Rate 73 71 Respiratory Rate Blood Pressure Pulse Oximetry 98 Oxygen Delivery Method MDM - Syncope Lab Data Lab results narrative: No leukocytosis or anemia, no major electrolyte disturbances. Mild elevation in proBNP without signs of active heart failure. Normal troponin. 12/21/24 11:23 12/21/24 11:23 Labs: Lab Results 12/21/24 12/21/24 Range/Units 11:23 13:00 WBC 9.9 (4.5-11.0) X10^3/uL RBC 3.60 L (4.0-5.2) X10^6/uL Hgb 12.8 (12.0-16.0) g/dL Hct 37.7 (36-46) % MCV 104.8 H (80-100) fL MCH 35.5 H (26-34) PG MCHC 33.9 (30-36) % RDW 13.6 (11.6-14.8) % Plt Count 267 (150-400) X10^3/uL Neut % (Auto) 57.4 (50-75) % Lymph % (Auto) 29.9 (25-40) % Heard % (Auto) 11.0 (3-14) % Eos % (Auto) 1.2 L (2-4) % Baso % (Auto) 0.5 (0-2) % Neut # (Auto) 5700 (4710-7388) /uL Lymph # (Auto) 3000 (5279-7153) /uL Heard # (Auto) 1100 H (0-900) /uL Eos # (Auto) 100 (0-450) /uL Baso # (Auto) 100 (0-100) /uL PT 11.8 (9.4-12.5) SECONDS INR 1.0 (0.9-1.3) APTT 29 (25.1-36.5) SECONDS Sodium 139 (137-145) mmol/L Potassium 4.3 (3.4-5.1) mmol/L Chloride 104 (98-107) mmol/L Carbon Dioxide 28 (22-32) mmol/L BUN 35 H (7-17) mg/dL Creatinine 0.91 (0.52-1.04) mg/dL Estimated GFR > 60 (>60) mL/min BUN/Creatinine Ratio 38.5 H (6-22) Glucose 100 (80-110) mg/dL Calcium 9.3 (8.4-10.2) mg/dL Magnesium 2.0 (1.6-2.3) mg/dL Total Bilirubin 0.4 (0.2-1.3) mg/dL AST 32 (14-36) IU/L ALT 26 (<35) IU/L Alkaline Phosphatase 56 (38-126) U/L Total Creatine Kinase 22 L (30-135) U/L Troponin I < 0.012 (0.01-0.034) ng/mL NT-Pro-B Natriuret Pep 1620 H (<450) pg/mL Total Protein 7.2 (6.3-8.2) g/dL Albumin 4.1 (3.5-5.0) g/dL Globulin 3.1 (1.7-4.1) g/dL Albumin/Globulin Ratio 1.3 (1.0-2.8) Lipase 82 (23-300) U/L Urine RBC None seen (0-5/HPF) Urine WBC 0-1/hpf (0-5/HPF) Ur Squamous Epith Cells 0-1 /hpf (0-5/HPF) Urine Bacteria Few (2-10) H (None) Ur Culture Indicated? Cult not indicated Vol Urine Centrifuged 10ml (spun) Urine Dip Bedside Urine Glucose Negative Bedside Urine Bilirubin - Negative Bedside Urine Ketone - Negative Urine Specific [place] 1.010 Bedside Urine Occult Blood +/- Bedside Urine pH 7.5 Bedside Urine Protein - Negative Bedside Urine Urobilinogen - Negative Bedside Urine Nitrite - Negative Bedside Urine Leukocytes - Negative Esterase Imaging Data Chest x-ray: My Impression: Independent review of chest x-ray, no acute finding Radiologist's Impression: Radiology report reviewed, no acute abnormality ECG Data Interpretation: ECG shows normal sinus rhythm at [address] segment changes possible old septal infarct MDM Narrative Medical decision making narrative: 89-year-old female with syncope. Does not have known structural heart disease and cardiovascular exam today is reassuring. No evidence of sepsis or hemorrhage. No recent medication changes to suggest iatrogenic causes. Patient has returned to her baseline. Recommended primary care follow up did not change her medications. Discharge Plan Departure Patient Disposition: Home Clinical Impression: Syncope Qualifiers: Syncope type: unspecified Qualified Code(s): R55 - Syncope and collapse Instructions: DI for Syncope in Adults (Fainting) Activity Restrictions/Additional Instructions: Emergency department workup today is reassuring. I am not sure why you passed out but at this point everything looks okay and I think it is okay for you to go home and follow up soon with your primary care provider. Continue previous home medications. I do recommend he try to get a little bit more fluids during the day as your labs suggest a you may be dehydrated. If you are having a recurrent episode where he feel lightheaded tried to get horizontal as quickly as possible. Follow up soon with her primary care provider. Prescriptions: No Action folic acid 1 mg Tablet 1 mg PO DAILY Qty: 30 3RF Rx Instructions: take 1 tablet daily loratadine [Allerclear] 10 mg Tablet 10 mg PO DAILY cyanocobalamin (vitamin B-12) [Vitamin B-12] 1,000 mcg Tablet 1,000 mcg PO DAILY alendronate 10 mg Tablet 10 mg PO DAILY atorvastatin [Lipitor] 20 mg Tablet 20 mg PO QPM hydrocodone-acetaminophen 5-325 mg tablet 1 tab PO Q4-6H PRN (Reason: pain) Qty: 20 0RF levothyroxine 88 mcg tablet 88 mcg PO QPM acetaminophen 325 mg Tablet 650 mg PO Q6HR PRN (Reason: Fever/Mild Pain (1-3)) Qty: 100 0RF docusate sodium 100 mg Capsule 100 mg PO BID Qty: 60 0RF ferrous sulfate 325 mg (65 mg iron) Tablet 325 mg PO DAILY Qty: 60 0RF oxycodone 5 mg Tablet 5 mg PO Q4HR PRN (Reason: Pain, Moderate (4-6)) Qty: 60 0RF aspirin [Tricia Low Dose Aspirin] 81 mg Tablet,Delayed Release (Dr/Ec) 81 mg PO DAILY omega 2-rsq-tif-fish oil [Fish Oil] 1,000 mg (120 mg-180 mg) Capsule 1,200 mg PO QDAY Multivitamin 50 Plus Tablet 1 tab PO QPM Calcium 750, D3 500, Vitamin K 1 tab PO QPM Referrals: Rojas Rose MD [Primary Care Provider] - Stand Alone Forms: Patient Portal/API/Survey
[2024-12-21 11:53] LABS: Add Manual Diff / Slide Review NO; Basophils Absolute Auto 100 /uL (0-100); Basophils Percent Auto 0.5 % (0-2); Eosinophils Absolute Auto 100 /uL (0-450); Eosinophils Percent Auto 1.2 % (2-4); Hematocrit 37.7 % (36-46); Hemoglobin 12.8 g/dL (12.0-16.0); Lymphocytes Absolute Auto 3000 /uL (1100-4500); Lymphocytes Percent Auto 29.9 % (25-40); Mean Corpuscular HGB Conc 33.9 % (30-36); Mean Corpuscular Hemoglobin 35.5 PG (26-34); Mean Corpuscular Volume 104.8 fL (80-100); Monocytes Absolute Auto 1100 /uL (0-900); Neutrophils Absolute Auto 5700 /uL (1500-7000); Neutrophils Percent Auto 57.4 % (50-75); Platelet Count 267 X10^3/uL (150-400); Red Cell Distribution Width 13.6 % (11.6-14.8); White Blood Cell Count 9.9 X10^3/uL (4.5-11.0)
[2024-12-21 11:56] LABS: Prothrombin Time 11.8 SECONDS (9.4-12.5)
[2024-12-21 11:58] LABS: PTT Partial Thromboplastin Tim 29 SECONDS (25.1-36.5)
[2024-12-21 12:00] LABS: Alanine Aminotransferase 26 IU/L (<35); Albumin 4.1 g/dL (3.5-5.0); Albumin Globulin Ratio 1.3 (1.0-2.8); Alkaline Phosphatase 56 U/L (38-126); Aspartate Aminotransferase 32 IU/L (14-36); BUN Creatinine Ratio 38.5 (6-22); Bilirubin Total 0.4 mg/dL (0.2-1.3); Blood Urea Nitrogen 35 mg/dL (7-17); Calcium 9.3 mg/dL (8.4-10.2); Carbon Dioxide 28 mmol/L (22-32); Chloride 104 mmol/L (98-107); Creatine Kinase 22 U/L (30-135); Estimated Glomerular Filt Rate > 60 mL/min (>60); Globulin 3.1 g/dL (1.7-4.1); Glucose 100 mg/dL (80-110); HEMOLYSIS < 15 (0-50); Lipase 82 U/L (23-300); Potassium 4.3 mmol/L (3.4-5.1); Sodium 139 mmol/L (137-145); Total Protein 7.2 g/dL (6.3-8.2)
[2024-12-21 12:12] LABS: NT-proBNP (BNP-Adult 18+) 1620 pg/mL (<450); Troponin I < 0.012 ng/mL (0.01-0.034)
[2024-12-21 13:56] LABS: RBC Urine None Seen (0-5/HPF); Urine Volume 10mL (spun)
[2024-12-21 13:57] LABS: Squamous Epithelial Cell Urine 0-1 /HPF (0-5/HPF)
[2024-12-21 13:59] LABS: Bacteria Urine Few (2-10); Culture Indicated Urine Cult Not Indicated; WBC Urine 0-1/HPF (0-5/HPF)
== END 2024-12-21 14:01 | disposition home or self-care (01) ==
PROVIDERS: Emergency Provider Emergency Medicine; Family Provider Family Medicine; PCP Family Medicine
DX: R55 Syncope and collapse (principal)
CPT/HCPCS: 36415; 71045; 80053; 81003; 81015; 82550; 83690; 83735; 83880; 84484; 85025; 85610; 85730; 93005; 99283; 99284

== ENCOUNTER → 2025-07-28 12:54 | Outpatient (CLI) | payer MEDICARE, OTHER, SELFPAY ==
[2023-08-08 23:38] VITALS: BMI 20.3
[2025-07-28 14:13] LABS: Blood Urea Nitrogen 27 mg/dL (7-17); Calcium 9.6 mg/dL (8.4-10.2); Carbon Dioxide 29 mmol/L (22-32); Chloride 102 mmol/L (98-107); Estimated Glomerular Filt Rate > 60 mL/min (>60); Glucose 128 mg/dL (70-99); HEMOLYSIS < 15 (0-50); Potassium 4.3 mmol/L (3.4-5.1); Sodium 140 mmol/L (137-145)
[2025-07-28 14:24] LABS: Vitamin D 25 Hydroxy (D3) 87.3 ng/mL (30.0-100.0)
== END ==
PROVIDERS: Family Provider Family Medicine; PCP Family Medicine; Referring Provider Internal Medicine Endocrinology, Diabetes & Metabolism; Visit Provider Internal Medicine Endocrinology, Diabetes & Metabolism
DX: M81.8 Other osteoporosis without current pathological fracture (principal)
CPT/HCPCS: 36415; 80048; 82306

== ENCOUNTER → 2025-09-17 08:53 | Outpatient (CLI) | payer MEDICARE, OTHER, SELFPAY ==
[2023-08-08 23:38] VITALS: BMI 20.3
--- NOTE | 2025-09-17 08:54 | DI.ECHO.S_ITS ---
[facility]+ [facility] : : [id number] : [place] : : [id number] : : Phone: [phone] Echocardiogram Report + + :Name: TITA MALHOTRA Study Date: 09/17/2025 Height: 66 in : :[facility] ReadingLocation: Weight: 125 lb : : Gender: Female BSA: 1.6 m2 : :: 1935 Age: 89 yrs BP: 143/86 mmHg: :Reason For Study: Atrial fibrillation : :Ordering Physician: BRITTANY, : :PETERSON Performed By: Molly Fung : :Referring: PETERSON SOTO : + + Interpretation Summary The patient was in atrial fibrillation with heart rates between 82-99 bpm during the exam. The ejection fraction is estimated to be 55-60%. Diastolic function could not be accurately assessed due to atrial fibrillation. The right ventricle is normal in size and function. There is severe biatrial enlargement. There is mild mitral regurgitation. There is severe tricuspid regurgitation. The right ventricular systolic pressure is estimated to be at least 26 mmHg based on an estimated right atrial pressure of 3 mm Hg. There is a small to moderate pericardial effusion noted. There are no echocardiographic or Doppler indications for cardiac tamponade. Compared to the prior study 08/13/2023, the atria have increased in size and the tricuspid regurgitation has worsened. Procedure: A two-dimensional transthoracic echocardiogram with color flow and Doppler was performed. The study quality was technically adequate. Comparison is made with the echocardiogram of 08-13-23. The patient was in atrial fibrillation with heart rates between 82-99 bpm during the exam. Left Ventricle: The left ventricle is normal in size and wall thickness. The ejection fraction is estimated to be 55-60%. Diastolic function could not be accurately assessed due to atrial fibrillation. Right Ventricle: The right ventricle is normal in size and function. Atria: There is severe biatrial enlargement. The interatrial septum grossly appears intact with no obvious evidence for an atrial septal defect. Mitral Valve: The mitral valve leaflets appear mildly thickened. There is mild mitral regurgitation. Aortic Valve: The aortic valve is trileaflet. The aortic valve opens well. There is no aortic valve stenosis. No aortic regurgitation is present. Tricuspid Valve: The tricuspid valve leaflets are thickened and/or calcified, but open well. There is severe tricuspid regurgitation. The right ventricular systolic pressure is estimated to be at least 26 mmHg based on an estimated right atrial pressure of 3 mm Hg. Pulmonic Valve: The pulmonic valve leaflets appear thickened, but open well. There is mild pulmonic regurgitation. Great Vessels: The aortic root is normal size. The ascending aorta is normal in size. The aortic arch is normal in size. The IVC is of normal diameter and collapses greater than 50% with a sniff. This suggests a low right atrial pressure of 3 mm Hg. Pericardium/ Pleura There is a small to moderate pericardial effusion noted. There are no echocardiographic or Doppler indications for cardiac tamponade. There is no pleural effusion. MMode/2D Measurements & Calculations LVIDd: 4.0 cm LVOT diam: 1.7 cm LVIDs: 2.5 cm Ao root diam: 3.2 cm FS: 37.2 % asc Aorta Diam: 2.9 cm EPSS: 0.28 cm Ao Arch Diam (Prox Trans): 2.3 cm IVSd: 0.87 cm LVPWd: 0.87 cm LV malone. diameter/BSA (cm/m^2): 2.5 LV sys. diameter/BSA (cm/m^2): 1.5 LA A2 area: 26.5 cm2 RA long axis: 6.0 cm LA A4 area: 29.2 cm2 RA area: 25.4 cm2 LA length (vol): 7.0 cm RA vol: 90.7 ml LA vol: 94.4 ml RA : 55.4 ml/m2 LA vol index: 57.6 ml/m2 IVC diam: 1.9 cm TAPSE: 1.1 cm Doppler Measurements & Calculations Ao V2 max: 98.4 cm/sec LVOT Max Haroldo: 71.5 cm/sec Ao V2 mean: 73.3 cm/sec LV V1 max P.0 mmHg Ao max P.9 mmHg LV V1 VTI: 16.3 cm Ao mean P.4 mmHg CHARI(I,D): 1.7 cm2 Ao V2 VTI: 22.3 cm CHARI(V,D): 1.7 cm2 sev ratio: 0.73 CHARI indexed to BSA (cm^2/m^2): 1.0 MVA(VTI): 1.7 cm2 TR max haroldo: 232.0 cm/sec MR ERO: 0.13 cm2 TR max P.6 mmHg PA V2 max: 66.2 cm/sec PA V2 mean: 43.4 cm/sec PA mean P.88 mmHg PA pr(Accel): 22.5 mmHg MV V2 mean: 56.2 cm/sec MR PISA: 2.0 cm2 MV mean P.9 mmHg MR flow rate: 70.8 cm3/sec MV V2 VTI: 22.5 cm MR PISA radius: 0.57 cm SV(LVOT): 38.3 ml Reading Physician:12:37 PM
== END ==
LOC: ECHO 08:54
PROVIDERS: Family Provider Family Medicine; PCP Family Medicine; Referring Provider Family Medicine; Visit Provider Family Medicine
DX: I08.1 Rheumatic disorders of both mitral and tricuspid valves (principal); I48.19 Other persistent atrial fibrillation; I31.39 Other pericardial effusion (noninflammatory)
CPT/HCPCS: 93306